=== PATIENT | female | born 1930 | race Caucasian/White ===

== ENCOUNTER 2016-10-05 08:48 | Inpatient (IN) | payer OTHER ==
[~2016-10-05] VITALS: Ht 167.6 cm; Wt 93.1 kg
[~2016-10-05 08:48] MED LIST: CHOL2000 PO; IPRA1AER2 INH; LIDO1CRE16 TOP; MAGNSUS73 PO; MULT-506 PO; ONDA4TAB46 PO; RISP0.258 PO; RISP0.5T10 PO; SENN-91 PO; SERT50TA PO; TRAM-10 PO; [UNRECOGNIZED DRUG - CODE] PO; [UNRECOGNIZED DRUG - CODE] PO; voltaren gel TD
[2016-10-05 09:01] VITALS: Ht 167.6 cm; Wt 93.1 kg
[2016-10-05] MEDS ORDERED: VANCOMYCIN INJ 1,000 MG in SODIUM CHLORIDE 0.9% 250ML 250 ML IV STA (09:12)
[2016-10-05] MEDS ORDERED: LEVAQUIN 750MG / 150ML D5W IV ONE (09:15)
--- NOTE | 2016-10-05 09:20 | EMERGENCY ROOM VISIT NOTE ---
ED Visit Note First contact with patient: 08:55 Resident Physician Supervision Note: I was present with Dr. Garcia during the history and exam. I discussed the case with the resident and agree with the findings and plan as documented in the note. Documented By: Ruben Doe Problem List Medical Problems: (1) Asthma Status: Chronic (2) Atrial Fibrillation Status: Resolved (3) Bronchitis Status: Chronic (4) Dementia Status: Chronic (5) Diverticulosis Colon (W/O Ment Of Hemorrhage) Status: Chronic (6) Hypertension Nos Status: Chronic (7) Knee Joint Replacement Status Status: Resolved (8) Ulcers Status: Chronic Surgical Problems: (1) History of hemicolectomy Status: Resolved (2) History of tonsillectomy Status: Resolved Current/Historical Medications Scheduled Acetaminophen (Tylenol), 500 MG PO Cholecalciferol (Vitamin D3), 1 CAP PO DAILY Cholecalciferol (Vitamin D3), 1 CAP PO DAILY Donepezil Hydrochloride (Donepezil Hcl), 10 MG PO HS Gabapentin (Neurontin), 300 MG PO TID Ipratropium-Albuterol (Combivent Respimat), 1 PUFFS INH QD Lidocaine-Prilocaine (Lidocaine/Prilocaine), 1 APPLN TOP UD Morphine Sulfate (Morphine Sulfate Cr), 15 MG PO Q12 Multivitamin (Multivitamin), 1 TAB PO DAILY Pantoprazole (Protonix), 40 MG PO QPM Risperidone (Risperdal), 0.25 MG PO BID Risperidone (Risperdal), 0.5 MG PO HS Sertraline (Zoloft), 75 MG PO DAILY Spironolactone (Aldactone), 25 MG PO 2XWK Trazodone Hcl (Trazodone), 50 MG PO HS Scheduled PRN Magnesium Hydroxide (Milk of Magnesia 400 mg/5Ml), 30 ML PO DIRECTED PRN for Constipation Ondansetron Hcl (Zofran), 4 MG PO Q6 PRN for Nausea Sennosides-Docusate Sodium (Senna S), 1 TAB PO BID PRN for Constipation Tramadol (Ultram), 50 MG PO Q24H PRN for Pain [voltaren gel], 1 APPLN TD QID PRN for Pain Allergies Coded Allergies: Penicillins (Verified Allergy, Mild, 07/28/16) Sulfa Drugs (Verified Allergy, Unknown, 07/28/16) Uncoded Allergies: human albumin (Adverse Reaction, Unknown, unknown, 01/04/16) Vital Signs Date Time Temp Pulse Resp B/P Pulse Ox O2 Delivery O2 Flow Rate FiO2 10/05/16 09:09 92 Nasal Cannula 4.0 10/05/16 09:01 37.9 85 18 133/57 86 Room Air Laboratory Results Test 10/05/16 09:05 10/05/16 09:12 Creatine Kinase MB Ratio (0-3.0) Departure Information Referrals Jagjit Falcon M.D. (PCP) Patient Instructions My [facility]
[2016-10-05] MEDS ORDERED: ONDANSETRON INJ 2 MG/ML 2 ML VIAL IV STA (09:22)
[2016-10-05] MEDS ORDERED: ALBUT/IPRATROP 3MG/0.5MG NEB 3 ML VIAL INH STA (09:25)
--- NOTE | 2016-10-05 09:25 | EMERGENCY ROOM VISIT NOTE ---
History First contact with patient: 08:55 Chief Complaint: FEVER Stated Complaint: RESPIRATORY DISTRESS History of Present Illness The patient is a 86 year old female who presents to the Emergency Room with complaints of respiratory distress. She has a history of vascular dementia, Parkinson's disease, GERD and currently lives in [facility] ( Dementia Unit). History was taken from both the daughter and her nurse at [facility] was called (Mirian Jacobs [phone]). Mirian reports she went to go check on Megan this morning and found her laying flat her head not upright with yellow vomit on her clothes. She was also not talking as much as she normally does. She also had a temperature of 101.5. She reports the patient has been fine the last few days and has not had fevers, chills, chest pain, shortness of breath. The daughter reports she last saw her mother yesterday and agrees that she was fine and at baseline. She usually ambulates with a walker but lately she has been in a wheelchair. Mirian reports she does not have an advanced directive for the patient, and she does not have a POLST form. Daughter reports the overall goals for her mother would be comfort care and she would discuss this with her brother, as both of them are the decision makers. Past Medical/Surgical History Medical Problems: (1) Asthma (2) Atrial Fibrillation (3) Bronchitis (4) Cellulitis (5) Dementia (6) Diverticulosis Colon (W/O Ment Of Hemorrhage) (7) Hypertension Nos (8) Knee Joint Replacement Status (9) Ulcers Surgical Problems: (1) History of hemicolectomy (2) History of tonsillectomy Family History Dementia MOTHER Heart disease FATHER Social History Smoking Status: Unknown if Ever Smoked Alcohol Use: none Drug Use: none Marital Status: Housing Status: retirement ([facility]. Permanent resident.) Occupation Status: retired Current/Historical Medications Scheduled Acetaminophen (Tylenol), 500 MG PO Cholecalciferol (Vitamin D3), 1 CAP PO DAILY Donepezil Hydrochloride (Donepezil Hcl), 10 MG PO HS Gabapentin (Neurontin), 300 MG PO TID Ipratropium-Albuterol (Combivent Respimat), 1 PUFFS INH QD Morphine Sulfate (Morphine Sulfate Cr), 15 MG PO Q12 Multivitamin (Multivitamin), 1 TAB PO DAILY Pantoprazole (Protonix), 40 MG PO QPM Polyethylene Glycol 3350 (Bulk (Polyethylene Glycol 3350), 17 GM PO DAILY Risperidone (Risperdal), 0.25 MG PO BID Risperidone (Risperdal), 0.5 MG PO HS Sertraline (Zoloft), 75 MG PO DAILY Spironolactone (Aldactone), 25 MG PO 2XWK Trazodone Hcl (Trazodone), 50 MG PO HS Scheduled PRN Magnesium Hydroxide (Milk of Magnesia 400 mg/5Ml), 30 ML PO DIRECTED PRN for Constipation Ondansetron Hcl (Zofran), 4 MG PO Q6 PRN for Nausea Sennosides-Docusate Sodium (Senna S), 1 TAB PO BID PRN for Constipation Tramadol (Ultram), 50 MG PO Q24H PRN for Pain Allergies Coded Allergies: Penicillins (Verified Allergy, Mild, 07/28/16) [place]ner Oil (Unverified Allergy, Unknown, UNKNOWN, 10/05/16) NUTS (Unverified Allergy, Unknown, UNKNOWN, 10/05/16) Sertraline (Unverified Allergy, Unknown, UNKNOWN, 10/05/16) Sulfa Drugs (Verified Allergy, Unknown, 07/28/16) Uncoded Allergies: human albumin (Adverse Reaction, Unknown, unknown, 01/04/16) Physical Exam Vital Signs Date Time Temp Pulse Resp B/P Pulse Ox O2 Delivery O2 Flow Rate FiO2 10/05/16 10:39 71 18 118/56 98 Nasal Cannula 4.0 10/05/16 10:39 70 18 98 Nasal Cannula 4.0 10/05/16 09:34 82 10/05/16 09:09 92 Nasal Cannula 4.0 10/05/16 09:05 94 Nasal Cannula 4.0 10/05/16 09:01 37.9 85 18 133/57 86 Room Air Physical Exam GENERAL: Somnolent, mild acute distress. HENT: Normocephalic, atraumatic. Oropharynx unremarkable. Coughing frequently. EYES: Normal conjunctiva. Sclera non-icteric. NECK: Supple. No nuchal rigidity. FROM. No JVD. RESPIRATORY: Transmitted upper airway sounds. No crackles at bases. CARDIAC: Regular rate, normal rhythm. Extremities warm and well perfused. Pulses equal. ABDOMEN: Bright yellow emesis on gown. Soft, non-distended. No tenderness to palpation. No rebound or guarding. No masses. RECTAL: Deferred. MUSCULOSKELETAL: Chest examination reveals no tenderness. The back is symmetrical on inspection without obvious abnormality. There is no CVA tenderness to palpation. No joint edema. LOWER EXTREMITIES: Calves are equal size bilaterally and non-tender. No edema. No discoloration. NEURO: Normal sensorium. No sensory or motor deficits noted. SKIN: No rash or jaundice noted. Medical Decision & Procedures Laboratory Results 10/05/16 09:10 Red Blood Count 3.78, Mean Corpuscular Volume 90.5, Mean Corpuscular Hemoglobin 29.9, Mean Corpuscular Hemoglobin Concent 33.0, Mean Platelet Volume 10.0, Neutrophils (%) (Auto) 85.0, Lymphocytes (%) (Auto) 8.7, Monocytes (%) (Auto) 6.0, Eosinophils (%) (Auto) 0.0, Basophils (%) (Auto) 0.1, Neutrophils # (Auto) 8.75, Lymphocytes # (Auto) 0.90, Monocytes # (Auto) 0.62, Eosinophils # (Auto) 0.00, Basophils # (Auto) 0.01 10/05/16 09:10 Test 10/05/16 00:00 10/05/16 09:10 10/05/16 09:14 10/05/16 09:24 White Blood Count 10.30 K/uL (4.8-10.8) Red Blood Count 3.78 M/uL (4.2-5.4) Hemoglobin 11.3 g/dL (12.0-16.0) Hematocrit 34.2 % (37-47) Mean Corpuscular Volume 90.5 fL (80-100) Mean Corpuscular Hemoglobin 29.9 pg (25-34) Mean Corpuscular Hemoglobin Concent 33.0 g/dl (32-36) Platelet Count 196 K/uL (130-400) Mean Platelet Volume 10.0 fL (7.4-10.4) Neutrophils (%) (Auto) 85.0 % Lymphocytes (%) (Auto) 8.7 % Monocytes (%) (Auto) 6.0 % Eosinophils (%) (Auto) 0.0 % Basophils (%) (Auto) 0.1 % Neutrophils # (Auto) 8.75 K/uL (1.4-6.5) Lymphocytes # (Auto) 0.90 K/uL (1.2-3.4) Monocytes # (Auto) 0.62 K/uL (0.11-0.59) Eosinophils # (Auto) 0.00 K/uL (0-0.5) Basophils # (Auto) 0.01 K/uL (0-0.2) RDW Standard Deviation 46.0 fL (36.4-46.3) RDW Coefficient of Variation 13.8 % (11.5-14.5) Immature Granulocyte % (Auto) 0.2 % Immature Granulocyte # (Auto) 0.02 K/uL (0.00-0.02) Prothrombin Time 12.1 SECONDS (9.0-12.0) Prothromb Time International Ratio 1.1 (0.9-1.1) Anion Gap 11.0 mmol/L (3-11) Est Creatinine Clear Calc Drug Dose 40.1 ml/min Estimated GFR () 48.1 Estimated GFR (Non- 41.5 BUN/Creatinine Ratio 16.6 (10-20) Calcium Level 9.0 mg/dl (8.5-10.1) Total Bilirubin 0.4 mg/dl (0.2-1) Aspartate Amino Transf (AST/SGOT) 28 U/L (15-37) Alanine Aminotransferase (ALT/SGPT) 20 U/L (12-78) Alkaline Phosphatase 83 U/L (45-117) Total Creatine Kinase 317 U/L (26-192) Creatine Kinase MB 2.4 ng/ml (0.5-3.6) Creatine Kinase MB Ratio 0.8 (0-3.0) Troponin I 0.026 ng/ml (0-0.045) Total Protein 6.8 gm/dl (6.4-8.2) Albumin 3.4 gm/dl (3.4-5.0) Globulin 3.4 gm/dl (2.5-4.0) Albumin/Globulin Ratio 1.0 (0.9-2) Bedside Lactic Acid Venous 1.47 mmol/L (0.90-1.70) Bedside Troponin I 0.000 ng/ml (0-0.045) Medications Administered Medications (Trade) Dose Ordered Sig/[place] Route Start Time Stop Time Status Last Admin Dose Admin Vancomycin HCl/ Sodium Chloride (Vancomycin Inj/ Nss 250ml) 270 ml @ 125 mls/hr NOW STAT IV 10/05/16 09:12 10/05/16 11:21 10/05/16 10:37 125 MLS/HR Levofloxacin (Levaquin / D5W) 750 mg NOW ONCE IV 10/05/16 09:15 10/05/16 09:16 DC 10/05/16 10:37 750 MG Ondansetron HCl 4 mg 4 mg NOW STAT IV 10/05/16 09:22 10/05/16 09:23 DC 10/05/16 10:37 4 MG Acetaminophen/ Empty Bag (Ofirmev IV/ Empty Iv Bag 100ml) 65 ml @ 260 mls/hr NOW ONCE IV 10/05/16 09:30 10/05/16 09:44 DC 10/05/16 10:36 260 MLS/HR Albuterol/ Ipratropium 12 ml 12 ml ONE STAT INH 10/05/16 09:25 10/05/16 09:27 DC 10/05/16 09:25 12 ML Sodium Chloride (Nss 500ml) 500 ml @ 999 mls/hr Q31M STAT IV 10/05/16 09:26 10/05/16 09:56 DC 10/05/16 10:36 999 MLS/HR ECG Indication: altered mental status Rhythm: normal sinus Findings: no acute ischemic change, no ectopy Change: no significant change ED Course 9:00: I evaluated the patient in room B7. A complete history and physical exam was performed. 9:05: I discussed the patient with Dr. Doe. We ordered a sepsis workup, including CBC, CMP, cardiac enzymes, CXR, CT head, Urinalysis / culture, Blood cultures, and POC lactic acid. 9:15: I checked on the patient again. She had just vomited bright yellow emesis again. I ordered her 4mg Zofran IV and a 500mL Fluid bolus. I also ordered a C. Diff PCR test. 9:30: Dr. Doe checked on the patient as well. 9:49: I checked on the patient again. She was getting her CT scan done. Her daughter was still present and her son is on his way. 10:15: I discussed the patient with her son Ed, his , and the patient's daughter. I gave them the results of her chest x-ray and lab work and that she likely had an aspiration pneumonia. The patient at this time is resting comfortably and her gurgling sensation had improved. 10:20: I discussed the patient's CODE STATUS with the people present. They were unsure where her advanced directive was. We had a long conversation about end-of-life care if that were to occur. We then filled out a POLST stating that the patient would be a DO NOT RESUSCITATE/DO NOT INTUBATE. Please refer to the form which found the patient's chart if further questions arise. Copies were provided to the 3 family members as well. Medical Decision This is an 86-year-old female with history of vascular dementia, Parkinson's, GERD, atrial fibrillation who presents today with altered mental status, fever, likely aspiration pneumonia. Differential also includes hospital-acquired pneumonia, clostridium difficile infection, urinary infection, stroke, SD. She had a complete septic workup on arrival including CBC, CMP, lactate, blood cultures, chest x-ray, CT head for altered mental status. Her labwork was unremarkable. Her lactate was 1.15. Her chest x-ray was significant for hazy opacifications likely suggestive of aspiration or inflammation. Her CT head was negative for acute ischemic change her mental status did not improve during her time here. She was provided with vancom mycin and Levaquin IV after blood cultures were obtained. She was provided with IV fluid resuscitation of 500 mL' s per hour. She does not have a recent echocardiogram in the chart. and she will be admitted to the hospitalist service for evaluation and treatment of her altered mental status and aspiration pneumonia. This is discussed with Dr. Harris of the [facility] service who will evaluate the patient. The family was also informed of this and agreed. Impression Primary Impression: Altered mental status Additional Impression: Aspiration pneumonia Departure Information Dispostion Being Evaluated By Hospitalist Condition GOOD Patient Instructions My [facility] Resident Tracking Resident Involvement: Resident Care Provided Care Provided: Adult ED Problem Qualifiers
[2016-10-05 09:26] LABS: HEMATOCRIT 34.2 % (37-47); MEAN CELL VOLUME 90.5 fL (80-100); MEAN CORPUSCULAR HEMOGLOBIN 29.9 pg (25-34); PLATELET COUNT 196 K/uL (130-400); RED BLOOD COUNT 3.78 M/uL (4.2-5.4)
[2016-10-05] MEDS ORDERED: SODIUM CHLORIDE 0.9% 500ML 500 ML IV STA (09:26)
[2016-10-05] MEDS ORDERED: ACETAMINOPHEN IV 650 MG in EMPTY BAG 0 ML IV ONE (09:30)
[2016-10-05 09:38] LABS: INR 1.1 (0.9-1.1); PROTHROMBIN TIME (PATIENT) 12.1 SECONDS (9.0-12.0)
[2016-10-05 09:44] LABS: BUN/CREATININE RATIO 16.6 (10-20); CREATININE 1.2 mg/dl (0.60-1.20); POTASSIUM 3.7 mmol/L (3.5-5.1)
[2016-10-05 09:49] LABS: CKMB/CK RATIO 0.8 (0-3.0)
--- NOTE | 2016-10-05 09:53 | DIAGNOSTIC IMAGING REPORT ---
SINGLE VIEW CHEST CLINICAL HISTORY: Dyspnea. FINDINGS: An AP, portable, upright chest radiograph is compared to study dated 07/28/2016 and correlated with chest CT dated 01/11/2014. The examination is severe degraded by portable technique, motion artifact, and patient rotation. The heart is top normal for projection. There is atherosclerotic calcification of the thoracic aorta. There are patchy airspace opacities in the left midlung. The right lung is grossly clear. No large pleural effusion or pneumothorax is seen. The skeletal structures are osteopenic. The bony thorax is grossly intact. IMPRESSION: 1. Motion degraded examination. 2. Patchy airspace opacities are identified in the left midlung. This could represent atelectasis versus an infectious/inflammatory pneumonitis. Clinical correlation will be required. Radiographic follow-up to resolution is recommended. Electronically signed by: Uche Figueroa M.D. 10/05/2016 9:52 AM Dictated Date/Time: 10/05/2016 9:50 AM
[2016-10-05 09:57] LABS: BASO % 0.1 %; BASO ABS # 0.01 K/uL (0-0.2); COMPLETE YES; IG% 0.2 %; LYMPH % 8.7 %
--- NOTE | 2016-10-05 10:03 | DIAGNOSTIC IMAGING REPORT ---
CT SCAN OF THE BRAIN WITHOUT IV CONTRAST CLINICAL HISTORY: Change in mental status. COMPARISON STUDY: CT of the brain dated 07/28/2016. TECHNIQUE: Unenhanced axial CT scan of the brain is performed from the vertex to the skull base. CT DOSE: 614.27 mGy.cm FINDINGS: Brain parenchyma: There are age-related involutional changes noting moderate patchy subcortical and periventricular microangiopathic change. There is no hemorrhage, mass effect, or evidence of acute territorial ischemia by CT criteria. Griggs-white matter is preserved. No extra-axial fluid collection is seen. Ventricles, sulci, cisterns: Prominent secondary to involutional change. Intracranial vasculature: There is atherosclerotic calcification of the cavernous carotid and vertebral arteries. Calvarium: Unremarkable. Sinuses and mastoids: The visualized paranasal sinuses are clear. The mastoid air cells are well pneumatized. Orbits: The bony orbits are grossly intact. There is a right ocular lens implant. IMPRESSION: Senescent changes as above with no hemorrhage, mass effect, or evidence of acute territorial ischemia by CT criteria. Electronically signed by: Uche Figueroa M.D. 10/05/2016 10:02 AM Dictated Date/Time: 10/05/2016 10:00 AM
[2016-10-05 10:39] VITALS: PULSE 70; O2SAT 98
[2016-10-05] MEDS ORDERED: ONDANSETRON INJ 2 MG/ML 2 ML VIAL IV PRN (11:30)
--- NOTE | 2016-10-05 11:40 | History and Physical ---
History & Physical Date & Time of Service: Oct 05, 2016 at 11:36 Chief Complaint: Respiratory Distress Primary Care Physician: Malena Hartman C.R.NZitaPZita History of Present Illness Source: patient, family This is an 86 yo F with PMHx of Dementia, Afib, HTN, asthma, diverticulosis Past Medical/Surgical History Medical Problems: (1) Asthma Status: Chronic (2) Atrial Fibrillation Status: Resolved (3) Bronchitis Status: Chronic (4) Dementia Status: Chronic (5) Diverticulosis Colon (W/O Ment Of Hemorrhage) Status: Chronic (6) Hypertension Nos Status: Chronic (7) Knee Joint Replacement Status Status: Resolved (8) Ulcers Status: Chronic Surgical Problems: (1) History of hemicolectomy Status: Resolved (2) History of tonsillectomy Status: Resolved Family History Dementia MOTHER Heart disease FATHER Social History Smoking Status: Unknown if Ever Smoked Drug Use: none Marital Status: Housing status: lives with family Occupational Status: retired Immunizations History of Influenza Vaccine: Unknown Influenza Vaccine Date: Aug 22, 2009 History of Tetanus Vaccine?: Unknown Tetanus Immunization Date: Jan 07, 2005 History of Pneumococcal: Unknown Pneumococcal Date: Feb 20, 2008 History of Hepatitis B Vaccine: Unknown Multi-Drug Resistant Organisms History of MDRO: No Allergies Coded Allergies: Penicillins (Verified Allergy, Mild, 07/28/16) [place]ell Oil (Unverified Allergy, Unknown, UNKNOWN, 10/05/16) NUTS (Unverified Allergy, Unknown, UNKNOWN, 10/05/16) Sertraline (Unverified Allergy, Unknown, UNKNOWN, 10/05/16) Sulfa Drugs (Verified Allergy, Unknown, 07/28/16) Uncoded Allergies: human albumin (Adverse Reaction, Unknown, unknown, 01/04/16) Home Medications Scheduled Acetaminophen (Tylenol), 500 MG PO Cholecalciferol (Vitamin D3), 1 CAP PO DAILY Donepezil Hydrochloride (Donepezil Hcl), 10 MG PO HS Gabapentin (Neurontin), 300 MG PO TID Ipratropium-Albuterol (Combivent Respimat), 1 PUFFS INH QD Morphine Sulfate (Morphine Sulfate Cr), 15 MG PO Q12 Multivitamin (Multivitamin), 1 TAB PO DAILY Pantoprazole (Protonix), 40 MG PO QPM Polyethylene Glycol 3350 (Bulk (Polyethylene Glycol 3350), 17 GM PO DAILY Risperidone (Risperdal), 0.25 MG PO BID Risperidone (Risperdal), 0.5 MG PO HS Sertraline (Zoloft), 75 MG PO DAILY Spironolactone (Aldactone), 25 MG PO 2XWK Trazodone Hcl (Trazodone), 50 MG PO HS Scheduled PRN Magnesium Hydroxide (Milk of Magnesia 400 mg/5Ml), 30 ML PO DIRECTED PRN for Constipation Ondansetron Hcl (Zofran), 4 MG PO Q6 PRN for Nausea Sennosides-Docusate Sodium (Senna S), 1 TAB PO BID PRN for Constipation Tramadol (Ultram), 50 MG PO Q24H PRN for Pain Physical Exam Vital Signs Date Time Temp Pulse Resp B/P Pulse Ox O2 Delivery O2 Flow Rate FiO2 10/05/16 10:39 71 18 118/56 98 Nasal Cannula 4.0 10/05/16 10:39 70 18 98 Nasal Cannula 4.0 10/05/16 09:34 82 10/05/16 09:09 92 Nasal Cannula 4.0 10/05/16 09:05 94 Nasal Cannula 4.0 10/05/16 09:01 37.9 85 18 133/57 86 Room Air Diagnostics Laboratory Results Results Past 24 Hours Test 10/05/16 00:00 10/05/16 09:10 10/05/16 09:14 10/05/16 09:24 Range/Units Influenza Type A Antigen Neg for Influ A NEG Influenza Type B Antigen Neg for Influ B NEG White Blood Count 10.30 4.8-10.8 K/uL Red Blood Count 3.78 4.2-5.4 M/uL Hemoglobin 11.3 12.0-16.0 g/dL Hematocrit 34.2 37-47 % Mean Corpuscular Volume 90.5 80-100 fL Mean Corpuscular Hemoglobin 29.9 25-34 pg Mean Corpuscular Hemoglobin Concent 33.0 32-36 g/dl Platelet Count 196 130-400 K/uL Mean Platelet Volume 10.0 7.4-10.4 fL Neutrophils (%) (Auto) 85.0 % Lymphocytes (%) (Auto) 8.7 % Monocytes (%) (Auto) 6.0 % Eosinophils (%) (Auto) 0.0 % Basophils (%) (Auto) 0.1 % Neutrophils # (Auto) 8.75 1.4-6.5 K/uL Lymphocytes # (Auto) 0.90 1.2-3.4 K/uL Monocytes # (Auto) 0.62 0.11-0.59 K/uL Eosinophils # (Auto) 0.00 0-0.5 K/uL Basophils # (Auto) 0.01 0-0.2 K/uL RDW Standard Deviation 46.0 36.4-46.3 fL RDW Coefficient of Variation 13.8 11.5-14.5 % Immature Granulocyte % (Auto) 0.2 % Immature Granulocyte # (Auto) 0.02 0.00-0.02 K/uL Prothrombin Time 12.1 9.0-12.0 SECONDS Prothromb Time International Ratio 1.1 0.9-1.1 Sodium Level 140 136-145 mmol/L Potassium Level 3.7 3.5-5.1 mmol/L Chloride Level 104 98-107 mmol/L Carbon Dioxide Level 25 21-32 mmol/L Anion Gap 11.0 3-11 mmol/L Blood Urea Nitrogen 20 7-18 mg/dl Creatinine 1.20 0.60-1.20 mg/dl Est Creatinine Clear Calc Drug Dose 40.1 ml/min Estimated GFR () 48.1 Estimated GFR (Non- 41.5 BUN/Creatinine Ratio 16.6 10-20 Random Glucose 152 70-99 mg/dl Calcium Level 9.0 8.5-10.1 mg/dl Total Bilirubin 0.4 0.2-1 mg/dl Aspartate Amino Transf (AST/SGOT) 28 15-37 U/L Alanine Aminotransferase (ALT/SGPT) 20 12-78 U/L Alkaline Phosphatase 83 45-117 U/L Total Creatine Kinase 317 26-192 U/L Creatine Kinase MB 2.4 0.5-3.6 ng/ml Creatine Kinase MB Ratio 0.8 0-3.0 Troponin I 0.026 0-0.045 ng/ml Total Protein 6.8 6.4-8.2 gm/dl Albumin 3.4 3.4-5.0 gm/dl Globulin 3.4 2.5-4.0 gm/dl Albumin/Globulin Ratio 1.0 0.9-2 Bedside Lactic Acid Venous 1.47 0.90-1.70 mmol/L Bedside Troponin I 0.000 0-0.045 ng/ml Microbiology Results 10/05/16 Blood Culture, Received Pending 10/05/16 Blood Culture, Received Pending 10/05/16 MRSA DNA Surveillance Screen, Received Pending Impression VTE Prophylaxis VTE Risk Assessment Done? Y/N: Yes Risk Level: Low
[2016-10-05] MEDS ORDERED: PIPERACILL/TAZOBAC IV 4.5 GM in DEXTROSE 5% 100ML 100 ML IV SCH (11:45)
--- NOTE | 2016-10-05 12:16 | History and Physical ---
History & Physical Date & Time of Service: Oct 05, 2016 at 11:48 Chief Complaint: Respiratory Distress Primary Care Physician: Malena Hartman, HeshamPZita History of Present Illness Source: family, hospital records Ms. Bernard is an 86yo female with PMHx of long-standing dementia for at least 10 years, atrial fibrillation, HTN, asthma, diverticulosis requiring hemicolectomy, and PE who presented via EMS from [facility] at [facility] with altered mental status, difficulty breathing, and vomiting. The patient was apparently at her neurocognitive baseline all week (confirmed with her daughter who visited with her & Friday). She had an uneventful night per documentation from the SNF and then this AM was found lying in vomit with alteration in mentation. After transport to [facility] she apparently had another episode of vomiting. CXR today shows a left-sided pneumonia, and she was begun on IV levaquin and vancomycin. During my assessment she was obtained. Both her son and daughter were at bedside and provided all of the history. At her neurocognitive baseline she is alert and oriented x 1 only. She does not recognize her children or know their names. She walks with a walker although it is limited severely by b/l knee pain. She has been at [facility] for about 3-4 years. She has a tendency towards agitation and combativeness although these symptoms were made better by use of risperdal. Past Medical/Surgical History PMH: 1. asthma 2. h/o a. fib 3. advanced dementia 4. h/o diverticulosis and diverticulitis 5. HTN 6. ulcers PSH: 1. b/l TKRs about 20 years ago 2. hemicolectomy 2nd to #4 above 3. ?hysterectomy 4. tonsillectomy Family History Dementia MOTHER Heart disease FATHER Social History Smoking Status: Never Smoker Smokeless Tobacco Use: No Alcohol Use: none Drug Use: none Marital Status: (2 children - son/daughter) Housing status: long-term ([facility]) Occupational Status: retired (Registered Nurse ) Immunizations History of Influenza Vaccine: Unknown Influenza Vaccine Date: Aug 22, 2009 History of Tetanus Vaccine?: Unknown Tetanus Immunization Date: Jan 07, 2005 History of Pneumococcal: Unknown Pneumococcal Date: Feb 20, 2008 History of Hepatitis B Vaccine: Unknown Multi-Drug Resistant Organisms History of MDRO: No Allergies Coded Allergies: Penicillins (Verified Allergy, Mild, 07/28/16) [place] Oil (Unverified Allergy, Unknown, UNKNOWN, 10/05/16) NUTS (Unverified Allergy, Unknown, UNKNOWN, 10/05/16) Sertraline (Unverified Allergy, Unknown, UNKNOWN, 10/05/16) Sulfa Drugs (Verified Allergy, Unknown, 07/28/16) Uncoded Allergies: human albumin (Adverse Reaction, Unknown, unknown, 01/04/16) Home Medications Scheduled Acetaminophen (Tylenol), 500 MG PO Cholecalciferol (Vitamin D3), 1 CAP PO DAILY Donepezil Hydrochloride (Donepezil Hcl), 10 MG PO HS Gabapentin (Neurontin), 300 MG PO TID Ipratropium-Albuterol (Combivent Respimat), 1 PUFFS INH QD Morphine Sulfate (Morphine Sulfate Cr), 15 MG PO Q12 Multivitamin (Multivitamin), 1 TAB PO DAILY Pantoprazole (Protonix), 40 MG PO QPM Polyethylene Glycol 3350 (Bulk (Polyethylene Glycol 3350), 17 GM PO DAILY Risperidone (Risperdal), 0.25 MG PO BID Risperidone (Risperdal), 0.5 MG PO HS Sertraline (Zoloft), 75 MG PO DAILY Spironolactone (Aldactone), 25 MG PO 2XWK Trazodone Hcl (Trazodone), 50 MG PO HS Scheduled PRN Magnesium Hydroxide (Milk of Magnesia 400 mg/5Ml), 30 ML PO DIRECTED PRN for Constipation Ondansetron Hcl (Zofran), 4 MG PO Q6 PRN for Nausea Sennosides-Docusate Sodium (Senna S), 1 TAB PO BID PRN for Constipation Tramadol (Ultram), 50 MG PO Q24H PRN for Pain Review of Systems unable to obtain ROS due to obtundation Physical Exam Vital Signs Date Time Temp Pulse Resp B/P Pulse Ox O2 Delivery O2 Flow Rate FiO2 10/05/16 10:39 71 18 118/56 98 Nasal Cannula 4.0 10/05/16 10:39 70 18 98 Nasal Cannula 4.0 10/05/16 09:34 82 10/05/16 09:09 92 Nasal Cannula 4.0 10/05/16 09:05 94 Nasal Cannula 4.0 10/05/16 09:01 37.9 85 18 133/57 86 Room Air General Appearance: + mild distress (tachypnea, course breath sounds, mild retractions) Head: normocephalic, atraumatic Eyes: PERRL ENT: + pertinent finding (TMs not seen due to b/l cerumen impaction; MM dry; poor gag) Neck: supple, no adenopathy, thyroid normal, no JVD Respiratory/Chest: + respiratory distress, + accessory muscle use, + wheezing ( mainly course BS bilaterally) Cardiovascular: no gallop, no murmur, normal peripheral pulses, + tachycardia Abdomen/GI: normal bowel sounds, non tender, soft, no organomegaly, + pertinent finding (multiple scars on abdominal wall ) Extremities/Musculoskelatal: no pedal edema, + pertinent finding (scars present over both knees; with passive ROM of both knees she quickly grimaces) Neurologic/Psych: + pertinent finding (DTRs (arms) about 1+ b/l; cannot assess strength; obtunded) Skin: no rash Lymphatic: no adenopathy (cervical ) Diagnostics Laboratory Results Results Past 24 Hours Test 10/05/16 00:00 10/05/16 09:10 10/05/16 09:14 10/05/16 09:24 Range/Units Influenza Type A Antigen Neg for Influ A NEG Influenza Type B Antigen Neg for Influ B NEG White Blood Count 10.30 4.8-10.8 K/uL Red Blood Count 3.78 4.2-5.4 M/uL Hemoglobin 11.3 12.0-16.0 g/dL Hematocrit 34.2 37-47 % Mean Corpuscular Volume 90.5 80-100 fL Mean Corpuscular Hemoglobin 29.9 25-34 pg Mean Corpuscular Hemoglobin Concent 33.0 32-36 g/dl Platelet Count 196 130-400 K/uL Mean Platelet Volume 10.0 7.4-10.4 fL Neutrophils (%) (Auto) 85.0 % Lymphocytes (%) (Auto) 8.7 % Monocytes (%) (Auto) 6.0 % Eosinophils (%) (Auto) 0.0 % Basophils (%) (Auto) 0.1 % Neutrophils # (Auto) 8.75 1.4-6.5 K/uL Lymphocytes # (Auto) 0.90 1.2-3.4 K/uL Monocytes # (Auto) 0.62 0.11-0.59 K/uL Eosinophils # (Auto) 0.00 0-0.5 K/uL Basophils # (Auto) 0.01 0-0.2 K/uL RDW Standard Deviation 46.0 36.4-46.3 fL RDW Coefficient of Variation 13.8 11.5-14.5 % Immature Granulocyte % (Auto) 0.2 % Immature Granulocyte # (Auto) 0.02 0.00-0.02 K/uL Prothrombin Time 12.1 9.0-12.0 SECONDS Prothromb Time International Ratio 1.1 0.9-1.1 Sodium Level 140 136-145 mmol/L Potassium Level 3.7 3.5-5.1 mmol/L Chloride Level 104 98-107 mmol/L Carbon Dioxide Level 25 21-32 mmol/L Anion Gap 11.0 3-11 mmol/L Blood Urea Nitrogen 20 7-18 mg/dl Creatinine 1.20 0.60-1.20 mg/dl Est Creatinine Clear Calc Drug Dose 40.1 ml/min Estimated GFR () 48.1 Estimated GFR (Non- 41.5 BUN/Creatinine Ratio 16.6 10-20 Random Glucose 152 70-99 mg/dl Calcium Level 9.0 8.5-10.1 mg/dl Total Bilirubin 0.4 0.2-1 mg/dl Aspartate Amino Transf (AST/SGOT) 28 15-37 U/L Alanine Aminotransferase (ALT/SGPT) 20 12-78 U/L Alkaline Phosphatase 83 45-117 U/L Total Creatine Kinase 317 26-192 U/L Creatine Kinase MB 2.4 0.5-3.6 ng/ml Creatine Kinase MB Ratio 0.8 0-3.0 Troponin I 0.026 0-0.045 ng/ml Total Protein 6.8 6.4-8.2 gm/dl Albumin 3.4 3.4-5.0 gm/dl Globulin 3.4 2.5-4.0 gm/dl Albumin/Globulin Ratio 1.0 0.9-2 Bedside Lactic Acid Venous 1.47 0.90-1.70 mmol/L Bedside Troponin I 0.000 0-0.045 ng/ml Test 10/05/16 11:44 Range/Units Microbiology Results 10/05/16 Blood Culture, Received Pending 3/4/17 Blood Culture, Received Pending 10/05/16 MRSA DNA Surveillance Screen, Received Pending Diagnostic Radiology cxr: IMPRESSION: 1. Motion degraded examination. 2. Patchy airspace opacities are identified in the left midlung. This could represent atelectasis versus an infectious/inflammatory pneumonitis. Clinical correlation will be required. Radiographic follow-up to resolution is recommended. CT head: neg for ICH or stroke; atrophy EKG EKG: NSR, no ST changes Impression Assessment and Plan 86yo female with advanced dementia, HTN, asthma, previous PE, and atrial fibrillation presenting with: 1. acute hypoxic respiratory failure - 2nd to left-sided pneumonia. When she was found altered this am there was vomit on her shirt suggesting that this could have been an aspiration event leading to the pneumonia. Will Rx with aztreonam (PCN allergic), flagyl (for anaerobe coverage), and levaquin (for gram negatives). Check MRSA screen; if negative then defer on MRSA coverage. Supportive care including O2, nebs, etc. Of note - rapid flu test was negative. 2. sepsis 2nd to left-sided pneumonia - fluids, IV abx, supportive care. 3. metabolic encephalopathy - 2nd to #1/#2. Supportive care. Check a VBG to ensure no hypercarbia as the cause of her obtundation. 4. dementia with history of behavioral disturbance - she is quite encephalopathic at this time due to the infectious process. Will resume her risperdal once mentating. 5. vomiting - unsure if this is due the pneumonia itself or a separate issue. Will check abdominal x-rays to r/o ileus, SBO, etc. Keep NPO. 6. asthma - with possible early exacerbation - solumedrol 40mg q12h. nebs. O2. 7. CKD stage 3 - creatinine at baseline. 8. DVT proph - heparin. 9. FEN - gentle hydration, NPO, BMP in am. 10. h/o PE - noted; needs chemical anticoagulation. 11. HTN - BPs are low-normal due to sepsis/dehydration. Hold BP meds. 12. code status - apparently the ER physician had a POLST discussion with the family. POLST form was completed. She is a DNR. During my personal discussions with the son/daughter they had some hesitation about having signed the POLST form but they are all in agreement that DNR is appropriate for their mother. 13. minimally elevated CPK - repeat CPK with troponin later this afternoon. Level of Care Med/Surg Advanced Directives Existing Advance Directive: No Existing Living Will: No Resuscitation Status DO NOT RESUSCITATE VTE Prophylaxis VTE Risk Assessment Done? Y/N: Yes Risk Level: Moderate Given or contraindicated: Unfractionated heparin SQ Social Service Consult Lives in [facility] Note total visit time 75 minutes Additional Copies To Raji Anthony
[2016-10-05 12:41] LABS: VEN BLD GAS O2 SATURATION 71.6 %; VEN BLOOD GAS BASE EXCESS -1.1 mmol/L
[2016-10-05] MEDS: GABAPENTIN 300 MG CAP PO SCH ×2 (13:44→19:48)
[2016-10-05] MEDS: RISPERIDONE 0.5 MG TAB PO SCH (14:00)
[2016-10-05] MEDS: METHYLPREDNISOLONE IV 40 MG in SYRINGE 0 ML IV SCH (14:13)
[2016-10-05] MEDS: NSS + 20MEQ KCL 1000ML 1,000 ML IV SCH (14:14)
[2016-10-05] MEDS: AZTREONAM IV 1,000 MG in DEXTROSE 5% 100ML 100 ML IV SCH ×2 (14:22→21:40)
[2016-10-05 14:26] VITALS: BP 119/72; PULSE 79; TEMP 37.7; O2SAT 96
[2016-10-05] MEDS: METRONIDAZOLE / NSS 500 MG in PREMIXED NSS 100 ML IV SCH (15:45)
[2016-10-05 15:56] VITALS: BP 100/62; PULSE 78; TEMP 38.4
[2016-10-05 17:02] LABS: CKMB/CK RATIO 0.7 (0-3.0)
[2016-10-05 17:30] VITALS: TEMP 37.8
--- NOTE | 2016-10-05 18:03 | DIAGNOSTIC IMAGING REPORT ---
ABDOMEN 2 VIEWS CLINICAL HISTORY: Generalized abdominal pain. Clinical concern for ileus. FINDINGS: Supine and erect portable abdominal radiographs are compared to study dated 09/28/2014. There is a paucity of abdominal bowel gas with no radiographic evidence of bowel obstruction. No evidence of intraperitoneal free air is seen. There are no abnormal abdominal calcifications. The skeletal structures are osteopenic. Moderate lumbosacral spondylosis is observed. Arthritic change is seen in the hips. The lung bases are clear as imaged. IMPRESSION: There is no radiographic evidence of bowel obstruction or intraperitoneal free air. Electronically signed by: Uche Figueroa M.D. 10/05/2016 6:02 PM Dictated Date/Time: 10/05/2016 6:00 PM
[2016-10-05] MEDS: TRAZODONE HCL 50 MG TAB PO SCH (19:48)
[2016-10-05] MEDS: DONEPEZIL HCL 10 MG TAB PO SCH (19:48)
[2016-10-05] MEDS: PANTOprazole SOD 40 MG TAB PO SCH (19:49)
[2016-10-05] MEDS: MoRPHine SULFATE CR 15 MG TAB (MS CONTIN) PO SCH (19:49)
[2016-10-05] MEDS ORDERED: RISPERIDONE 0.5 MG TAB PO SCH (21:00)
[2016-10-05] MEDS ORDERED: VANCOMYCIN INJ 500 MG in SODIUM CHLORIDE 0.9% 250ML 250 ML IV SCH (21:00)
[2016-10-05] MEDS: HEPARIN SOD 5000 UNIT/0.5 ML CARP SQ SCH (21:51)
[2016-10-06 00:05] VITALS: BP 149/75; PULSE 64; TEMP 36.5; O2SAT 95
[2016-10-06] MEDS: METRONIDAZOLE / NSS 500 MG in PREMIXED NSS 100 ML IV SCH ×3 (00:08→16:18)
[2016-10-06] MEDS: NSS + 20MEQ KCL 1000ML 1,000 ML IV SCH ×3 (00:10→20:24)
[2016-10-06] MEDS: METHYLPREDNISOLONE IV 40 MG in SYRINGE 0 ML IV SCH ×2 (00:51→12:41)
[2016-10-06] MEDS: AZTREONAM IV 1,000 MG in DEXTROSE 5% 100ML 100 ML IV SCH ×3 (06:51→23:01)
[2016-10-06] MEDS: SERTRALINE HCL 50 MG TAB PO SCH (06:56)
[2016-10-06] MEDS: MoRPHine SULFATE CR 15 MG TAB (MS CONTIN) PO SCH ×2 (06:56→20:02)
[2016-10-06] MEDS: RISPERIDONE 0.5 MG TAB PO SCH ×2 (06:56→12:42)
[2016-10-06] MEDS: GABAPENTIN 300 MG CAP PO SCH ×3 (06:56→19:59)
[2016-10-06] MEDS: MULTIVITAMIN TAB PO SCH (06:56)
[2016-10-06 07:30] VITALS: BP 154/71; PULSE 44; TEMP 36.4; O2SAT 99
[2016-10-06] MEDS: IPRATROPIUM BROMIDE/ALBUTEROL respimat INH INH SCH (07:53)
[2016-10-06] MEDS: HEPARIN SOD 5000 UNIT/0.5 ML CARP SQ SCH ×2 (07:55→21:00)
[2016-10-06 09:23] LABS: URINE APPEARANCE CLEAR (CLEAR); URINE BILIRUBIN NEG (NEG); URINE COLOR YELLOW; URINE EPITHELIAL CELL AUTO 0-5 /lpf (0-5); URINE NITRITE NEG (NEG); URINE SPECIFIC GRAVITY 1.021 (1.000-1.030); UROBILINOGEN NEG (NEG); ZZUR CULT IF INDIC CLEAN CATCH NO
[2016-10-06 09:28] LABS: MANUAL MICROSCOPIC REQUIRED? NO; REVIEW REQ? NO
[2016-10-06 09:54] LABS: HEMATOCRIT 32.3 % (37-47); MEAN CELL VOLUME 90.7 fL (80-100); MEAN CORPUSCULAR HEMOGLOBIN 30.1 pg (25-34); MEAN CORPUSCULAR HGB CONC 33.1 g/dl (32-36); MEAN PLATELET VOLUME 9.9 fL (7.4-10.4); PLATELET COUNT 173 K/uL (130-400); RED BLOOD COUNT 3.56 M/uL (4.2-5.4); WHITE BLOOD COUNT 10.46 K/uL (4.8-10.8)
[2016-10-06 10:19] LABS: BUN/CREATININE RATIO 28.7 (10-20); CALCIUM 8.6 mg/dl (8.5-10.1); CREATININE 0.96 mg/dl (0.60-1.20); MAGNESIUM 1.9 mg/dl (1.8-2.4); POTASSIUM 4.1 mmol/L (3.5-5.1)
[2016-10-06 10:32] LABS: COMPLETE YES; IG% 0.2 %; LYMPH % 7.6 %; MONO % 5.9 %; NEUT % 86.3 %
[2016-10-06] MEDS: DICLOFENAC SOD 1% GEL 100 GM TUBE EXT SCH ×2 (12:40→20:25)
[2016-10-06] MEDS: HYDROmorphone INJ 0.5 MG/0.5 ML SYR IV PRN ×2 (13:57→21:23)
[2016-10-06 15:46] LABS: INFLUENZA A PCR Neg for Influ A (NEG); INFLUENZA B PCR Neg for Influ B (NEG)
[2016-10-06] MEDS: RISPERIDONE ODT 0.5MG PO SCH ×2 (16:27→19:47)
--- NOTE | 2016-10-06 17:44 | Progress Note ---
Subjective Date of Service: Oct 06, 2016. Subjective Pt evaluation today including: conversation w/ patient, conversation w/ family (daughter at bedside), physical exam, chart review, lab review, review of studies (flu PCR test), review of inpatient medication list Pain: "all over" but she can't describe it or tell me other details PO Intake: essentially nothing Voiding: incontinence overnight was very sleepy this AM she is much more awake and alert albeit very confused per staff has episodes of combativeness not eating well seen by speech; cleared for [facility] soft with thin liquids cough noted by daughter during the entire visit the patient was making a moaning/buzzing type sound which the daughter states is chronic Problem List Medical Problems: (1) Altered mental status Status: Acute (2) Aspiration pneumonia Status: Acute (3) Fall Status: Acute Review of Systems cannot obtain 2nd to dementia Objective Vital Signs Date Time Temp Pulse Resp B/P Pulse Ox O2 Delivery O2 Flow Rate FiO2 10/06/16 14:53 Nasal Cannula 2.0 10/06/16 11:40 Nasal Cannula 2.0 10/06/16 07:30 36.4 44 24 154/71 99 Nasal Cannula 2.0 10/06/16 01:46 Nasal Cannula 2.0 10/06/16 00:05 36.5 64 20 149/75 95 Nasal Cannula 2.0 10/05/16 23:58 Nasal Cannula 2.0 Physical Exam General Appearance: no apparent distress, + pertinent finding (making a moaning /buzzing sound ) ENT: pharynx normal Neck: no JVD Respiratory/Chest: no respiratory distress, no accessory muscle use, + rales ( minimal, left lung), + wheezing (b/l ) Cardiovascular: no gallop, no murmur, + bradycardia Abdomen: normal bowel sounds, non tender, soft, no organomegaly Extremities: no pedal edema, + pertinent finding (knee replacement scars b/l ) Neurologic/Psychiatric: alert, + disoriented, + pertinent finding (increased tone all 4 extremities ) Laboratory Results Last 24 Hours Test 10/06/16 08:30 10/06/16 09:29 10/06/16 12:05 10/06/16 14:10 Urine Color YELLOW Urine Appearance CLEAR Urine pH 5.0 Urine Specific [place] 1.021 Urine Protein NEG Urine Glucose (UA) NEG Urine Ketones NEG Urine Occult Blood 3+ Urine Nitrite NEG Urine Bilirubin NEG Urine Urobilinogen NEG Urine Leukocyte Esterase NEG Urine WBC (Auto) 0 /hpf Urine RBC (Auto) 0-4 /hpf Urine Hyaline Casts (Auto) 0 /lpf Urine Epithelial Cells (Auto) 0-5 /lpf Urine Bacteria (Auto) NEG White Blood Count 10.46 K/uL Red Blood Count 3.56 M/uL Hemoglobin 10.7 g/dL Hematocrit 32.3 % Mean Corpuscular Volume 90.7 fL Mean Corpuscular Hemoglobin 30.1 pg Mean Corpuscular Hemoglobin Concent 33.1 g/dl Platelet Count 173 K/uL Mean Platelet Volume 9.9 fL Neutrophils (%) (Auto) 86.3 % Lymphocytes (%) (Auto) 7.6 % Monocytes (%) (Auto) 5.9 % Eosinophils (%) (Auto) 0.0 % Basophils (%) (Auto) 0.0 % Neutrophils # (Auto) 9.02 K/uL Lymphocytes # (Auto) 0.80 K/uL Monocytes # (Auto) 0.62 K/uL Eosinophils # (Auto) 0.00 K/uL Basophils # (Auto) 0.00 K/uL RDW Standard Deviation 47.8 fL RDW Coefficient of Variation 14.2 % Immature Granulocyte % (Auto) 0.2 % Immature Granulocyte # (Auto) 0.02 K/uL Sodium Level 143 mmol/L Potassium Level 4.1 mmol/L Chloride Level 109 mmol/L Carbon Dioxide Level 25 mmol/L Anion Gap 9.0 mmol/L Blood Urea Nitrogen 28 mg/dl Creatinine 0.96 mg/dl Est Creatinine Clear Calc Drug Dose 50.1 ml/min Estimated GFR () 62.9 Estimated GFR (Non- 54.3 BUN/Creatinine Ratio 28.7 Random Glucose 137 mg/dl Calcium Level 8.6 mg/dl Magnesium Level 1.9 mg/dl Total Creatine Kinase 242 U/L Influenza Type A (RT-PCR) Neg for Influ A Influenza Type B (RT-PCR) Neg for Influ B Test 10/06/16 17:01 Bedside Glucose 134 mg/dl Assessment and Plan 86yo female with advanced dementia, HTN, asthma, previous PE, and atrial fibrillation who presented with: 1. acute hypoxic respiratory failure - 2nd to left-sided pneumonia. Likely aspiration in etiology. Cannot rule out gram negative etiology but less likely. MRSA swab negative. Day #2 of aztreonam & levaquin - continue both. Cont NC O2 & supportive care, nebs, etc. 2. sepsis 2nd to left-sided pneumonia - improved today. Cont fluids, IV abx, supportive care. 3. metabolic encephalopathy - 2nd to #1/#2. Improved. Much more awake/alert today. 4. dementia with history of behavioral disturbance - getting combative now that she is more awake. Resume risperdal. Adjust as needed. Family has been counseled that behavior often worsens while hospitalized since she is out of her normal environment, etc. 5. vomiting - resolved. KUB x-ray w/o ileus or SBO. In fact has had bowel movement since admission. 6. asthma - with exacerbation - continue solumedrol 40mg q12h. nebs. O2. 7. CKD stage 3 - creatinine at baseline. 8. DVT proph - heparin. 9. FEN - continue gentle hydration due to poor oral intake; BMP in am. 10. h/o PE - noted; needs chemical DVT proph (heparin). 11. HTN - BPs were low yesterday, now climbing. If they continue to be mildly high restart meds. 12. h/o a. fib - now with low HR today - EKG. 13. code status - DNR. daughter updated at bedside PT, OT Continued [facility] stay due to: inadequate po fluid intake, ambulation difficulties , multiple IV medications needed Discharge planning: other ([facility])
[2016-10-06 17:52] VITALS: BP 186/85; PULSE 54; TEMP 36.2; O2SAT 82
[2016-10-06] MEDS ORDERED: MICONAZOLE NITRATE POWDER 43 GM ONE (18:44)
[2016-10-06] MEDS: PANTOprazole SOD 40 MG TAB PO SCH (19:47)
[2016-10-06] MEDS: TRAZODONE HCL 50 MG TAB PO SCH (19:47)
[2016-10-06] MEDS: DONEPEZIL HCL 10 MG TAB PO SCH (19:59)
[2016-10-06 20:30] VITALS: BP 171/76; PULSE 47; O2SAT 96
[2016-10-06 22:00] VITALS: BP 160/74; PULSE 50; O2SAT 95
[2016-10-07] VITALS (9 sets, daily range): BP systolic 128–176; BP diastolic 56–90; PULSE 38–48; TEMP 36.3–36.6; O2SAT 93–100
[2016-10-07] MEDS: METRONIDAZOLE / NSS 500 MG in PREMIXED NSS 100 ML IV SCH ×2 (00:44→07:54)
[2016-10-07] MEDS: DICLOFENAC SOD 1% GEL 100 GM TUBE EXT SCH ×4 (01:29→21:23)
[2016-10-07] MEDS: METHYLPREDNISOLONE IV 40 MG in SYRINGE 0 ML IV SCH (01:29)
[2016-10-07] MEDS: AZTREONAM IV 1,000 MG in DEXTROSE 5% 100ML 100 ML IV SCH (05:50)
[2016-10-07 07:19] LABS: BUN/CREATININE RATIO 40.8 (10-20); CREATININE 0.86 mg/dl (0.60-1.20); POTASSIUM 4.6 mmol/L (3.5-5.1)
[2016-10-07 07:29] LABS: THYROID STIMULATING HORMONE 0.79 uIu/ml (0.300-4.500)
[2016-10-07] MEDS: MULTIVITAMIN TAB PO SCH (07:41)
[2016-10-07] MEDS: GABAPENTIN 300 MG CAP PO SCH ×3 (07:41→21:22)
[2016-10-07] MEDS: RISPERIDONE ODT 0.5MG PO SCH ×3 (07:43→21:23)
[2016-10-07] MEDS: IPRATROPIUM BROMIDE/ALBUTEROL respimat INH INH SCH (07:52)
[2016-10-07] MEDS: SERTRALINE HCL 50 MG TAB PO SCH (07:54)
[2016-10-07] MEDS: TRAMADOL HCL 50 MG TAB PO PRN (07:59)
[2016-10-07] MEDS: NSS + 20MEQ KCL 1000ML 1,000 ML IV SCH (08:01)
[2016-10-07] MEDS ORDERED: NITROGLYCERIN 0.4 MG SL PER TAB CHARGE ONE (08:07)
[2016-10-07] MEDS ORDERED: NURSING VERBAL MED ORDER ONE (08:15)
[2016-10-07] MEDS: HEPARIN SOD 5000 UNIT/0.5 ML CARP SQ SCH ×2 (09:00→21:00)
[2016-10-07] MEDS: MoRPHine SULFATE CR 15 MG TAB (MS CONTIN) PO SCH ×2 (09:28→21:22)
[2016-10-07] MEDS ORDERED: LEVOFLOXACIN / D5W 750 MG in PREMIXED IN D5W 150 ML IV SCH (11:00)
--- NOTE | 2016-10-07 13:40 | Clinical Documentation Query ---
CLINICAL DOCUMENTATION QUERY Dr. SMITH, In your clinical opinion is this patient being managed for: ( X ) Venous stasis ulcers on 2nd and 3rd R toes ( ) Other explanation of clinical findings (Please Explain) ( ) Unable to determine (Please Define) ( ) Need to Discuss ( ) Not Agree The medical record reflects the following clinical findings, treatment, and risk factors. Clinical Indicators: WOCN consult noted for scabbed areas on R toes. WOCN noted pt has a history of venous statis ulcers in the past. Treatment:cleanse with NSS, paint with betadine, cover with gauze and kerlix daily and prn, waffleboots, WOCN consult Risk Factors:age, venous insufficiency, HTN, A fib Please clarify and document your clinical opinion in the progress notes and discharge summary. Terms such as "probable", "suspected", "likely", "questionable", "possible", or "still to be ruled out" are acceptable. IF IN AGREEMENT, YOU MUST DOCUMENT ABOVE DIAGNOSTIC STATEMENT IN DAILY PROGRESS NOTES AND DISCHARGE SUMMARY. This document is not part of the patient's record. Thank You, Dia Butts, RN [phone]
--- NOTE | 2016-10-07 19:37 | Hospitalist Progress Note ---
Hospitalist Progress Note Date of Service Oct 07, 2016. Subjective Pt evaluation today including: physical exam, chart review, lab review, review of studies, review of inpatient medication list The patient was non-conversant. She has a chronic humming vocalization. I was unable to perform a ROS. No family members present to talk with today. Additional Comments: Unable to be performed. Objective Vital Signs Date Time Temp Pulse Resp B/P Pulse Ox O2 Delivery O2 Flow Rate FiO2 10/07/16 19:00 Room Air 10/07/16 16:15 95 Room Air 10/07/16 16:00 96 Nasal Cannula 2.0 10/07/16 15:44 36.3 42 24 128/70 100 Nasal Cannula 2.0 10/07/16 08:25 42 130/56 10/07/16 08:00 96 Nasal Cannula 2.0 10/07/16 07:20 38 151/90 95 Nasal Cannula 2.0 10/07/16 07:08 36.6 48 18 153/62 93 Room Air 10/07/16 01:20 Nasal Cannula 2.0 10/07/16 00:20 36.3 45 16 133/66 99 3.0 10/06/16 22:30 Nasal Cannula 3.0 10/06/16 22:00 50 160/74 95 Nasal Cannula 3.0 10/06/16 20:30 47 171/76 96 Nasal Cannula 3.0 Physical Exam Notes: GEN: Awake. HEENT: Tm's intact, no inflammation, EOMI, PERRLA, MMM Neck: Soft, supple Lungs: scattered rhonchi b/l. Heart: REG, nrl S1S2 without murmurs, rubs or gallops Abdomen: Soft, NT, ND, + BS EXT: No C/C/E NEURO: CN's II-XII grossly intact, non-focal Skin: warm, dry, no rashes PSYCH: No agitation, confused. Laboratory Results Last 24 Hours Test 10/07/16 06:20 Sodium Level 144 mmol/L Potassium Level 4.6 mmol/L Chloride Level 112 mmol/L Carbon Dioxide Level 22 mmol/L Anion Gap 10.0 mmol/L Blood Urea Nitrogen 35 mg/dl Creatinine 0.86 mg/dl Est Creatinine Clear Calc Drug Dose 56.0 ml/min Estimated GFR () 71.9 Estimated GFR (Non- 62.0 BUN/Creatinine Ratio 40.8 Random Glucose 152 mg/dl Calcium Level 9.0 mg/dl Thyroid Stimulating Hormone (TSH) 0.790 uIu/ml Assessment and Plan 1. Left sided pneumonia vs chemical pneumonitis from aspiration. 2. sepsis 2nd to left-sided pneumonia - continues to improve. In fact patient has self removed her IV site for the 3rd time. I will switch antibiotic to oral and monitor the patient. 3. dementia with history of behavioral disturbance - continue risperdal. 4. asthma - with exacerbation - change to oral prednisone. nebs. O2. 7. CKD stage 3 - creatinine is at baseline. 8. DVT proph - heparin. 9. HTN - tends to fluctuate 10. bradycardia - episodic. Patient is DNR. I do not plan to get aggressive with this issue.
[2016-10-07] MEDS: PANTOprazole SOD 40 MG TAB PO SCH (21:21)
[2016-10-07] MEDS: DONEPEZIL HCL 10 MG TAB PO SCH (21:21)
[2016-10-07] MEDS: TRAZODONE HCL 50 MG TAB PO SCH (21:22)
[2016-10-08] MEDS: DICLOFENAC SOD 1% GEL 100 GM TUBE EXT SCH ×4 (02:15→20:52)
[2016-10-08] MEDS: ACETAMINOPHEN 325 MG TAB PO PRN (04:47)
[2016-10-08 05:54] LABS: COMPLETE YES; HEMATOCRIT 34.3 % (37-47); IG% 0.1 %; LYMPH ABS # 0.99 K/uL (1.2-3.4); MEAN CORPUSCULAR HGB CONC 32.7 g/dl (32-36); MEAN PLATELET VOLUME 10.5 fL (7.4-10.4); MONO % 6.6 %; NEUT % 83.3 %; PLATELET COUNT 179 K/uL (130-400); RED BLOOD COUNT 3.73 M/uL (4.2-5.4); WHITE BLOOD COUNT 9.88 K/uL (4.8-10.8)
[2016-10-08 06:28] LABS: BUN/CREATININE RATIO 33.1 (10-20); CREATININE 0.95 mg/dl (0.60-1.20)
[2016-10-08 07:00] VITALS: BP 150/77; PULSE 50; TEMP 36.3; O2SAT 95
[2016-10-08] MEDS: GABAPENTIN 300 MG CAP PO SCH ×3 (07:44→20:52)
[2016-10-08] MEDS: MULTIVITAMIN TAB PO SCH (07:45)
[2016-10-08] MEDS: SERTRALINE HCL 50 MG TAB PO SCH (07:45)
[2016-10-08] MEDS: RISPERIDONE ODT 0.5MG PO SCH ×3 (07:47→20:53)
[2016-10-08] MEDS: MoRPHine SULFATE CR 15 MG TAB (MS CONTIN) PO SCH ×2 (07:48→20:51)
[2016-10-08] MEDS: IPRATROPIUM BROMIDE/ALBUTEROL respimat INH INH SCH (07:51)
[2016-10-08] MEDS: HEPARIN SOD 5000 UNIT/0.5 ML CARP SQ SCH ×2 (09:00→20:51)
[2016-10-08] MEDS ORDERED: LVQ500 PO (09:03)
[2016-10-08] MEDS ORDERED: PRED10TA PO (09:03)
--- NOTE | 2016-10-08 09:07 | Discharge Instructions ---
Discharge Instructions Date of Service Oct 08, 2016. Admission Reason for Admission: Left pneumonia, metabolic encephalopathy Discharge Discharge Diagnosis / Problem: Pneumonitis Left Discharge Goals Goal(s): Improve function Activity Recommendations Activity Limitations: resume your previous activity . Instructions / Follow-Up Instructions / Follow-Up PCP in 5-7 days. Take prednisone as follows: Prednisone 10mg tabs take 2 by mouth daily on days 1-5. Then take 1 daily on days 6-10. Current Hospital Diet Patient's current hospital diet: AHA Diet (Heart Healthy) Discharge Diet Recommended Diet: Regular Diet Procedures Procedures Performed: None. Pending Studies Studies pending at discharge: yes List of pending studies: Final results of blood cultures x2. At the time of discharge both cultures are showing no growth. Laboratory Results Last 24 Hours Test 10/08/16 05:40 White Blood Count 9.88 K/uL Red Blood Count 3.73 M/uL Hemoglobin 11.2 g/dL Hematocrit 34.3 % Mean Corpuscular Volume 92.0 fL Mean Corpuscular Hemoglobin 30.0 pg Mean Corpuscular Hemoglobin Concent 32.7 g/dl Platelet Count 179 K/uL Mean Platelet Volume 10.5 fL Neutrophils (%) (Auto) 83.3 % Lymphocytes (%) (Auto) 10.0 % Monocytes (%) (Auto) 6.6 % Eosinophils (%) (Auto) 0.0 % Basophils (%) (Auto) 0.0 % Neutrophils # (Auto) 8.23 K/uL Lymphocytes # (Auto) 0.99 K/uL Monocytes # (Auto) 0.65 K/uL Eosinophils # (Auto) 0.00 K/uL Basophils # (Auto) 0.00 K/uL RDW Standard Deviation 46.9 fL RDW Coefficient of Variation 14.0 % Immature Granulocyte % (Auto) 0.1 % Immature Granulocyte # (Auto) 0.01 K/uL Sodium Level 142 mmol/L Potassium Level 4.0 mmol/L Chloride Level 108 mmol/L Carbon Dioxide Level 24 mmol/L Anion Gap 10.0 mmol/L Blood Urea Nitrogen 31 mg/dl Creatinine 0.95 mg/dl Est Creatinine Clear Calc Drug Dose 50.7 ml/min Estimated GFR () 63.7 Estimated GFR (Non- 55.0 BUN/Creatinine Ratio 33.1 Random Glucose 111 mg/dl Calcium Level 9.0 mg/dl Medical Emergencies . Who to Call and When: Medical Emergencies: If at any time you feel your situation is an emergency, please call 911 immediately. . Non-Emergent Contact Non-Emergency issues call your: Primary Care Provider . . "Provider Documentation" section prepared by Juan Palencia. VTE Core Measure Inpt VTE Proph given/why not?: Unfractionated heparin SQ
[2016-10-08] MEDS: LEVOFLOXACIN 500 MG TAB PO SCH (10:50)
[2016-10-08] MEDS ORDERED: LEVOFLOXACIN 750 MG TAB PO SCH (11:00)
[2016-10-08 14:45] VITALS: BP 187/72; PULSE 47; TEMP 36.7; O2SAT 93
[2016-10-08 16:10] VITALS: O2SAT 93
--- NOTE | 2016-10-08 17:11 | Hospitalist Progress Note ---
Hospitalist Progress Note Date of Service Oct 08, 2016. Subjective Pt evaluation today including: conversation w/ patient, physical exam, chart review, lab review, review of studies, review of inpatient medication list Patient is confused. She was actually laughing today. I had planned on discharge as she is doing well, but there are no rehab beds available for today. Additional Comments: Unobtainable due to dementia. Objective Vital Signs Date Time Temp Pulse Resp B/P Pulse Ox O2 Delivery O2 Flow Rate FiO2 10/08/16 14:45 36.7 47 19 187/72 93 10/08/16 08:00 Room Air 10/08/16 07:00 36.3 50 18 150/77 95 Room Air 10/08/16 00:00 Room Air 10/07/16 23:51 36.3 43 18 176/79 95 Room Air 10/07/16 19:00 Room Air Physical Exam Notes: GEN: Awake. Not in acute distress HEENT: Tm's intact, no inflammation, EOMI, PERRLA, MMM Neck: Soft, supple Lungs: CTA b/l, no r/r/w Heart: REG, nrl S1S2 without murmurs, rubs or gallops Abdomen: Soft, NT, ND, + BS EXT: No C/C + trace ankle edema. NEURO: CN's II-XII grossly intact, non-focal Skin: warm, dry, no rashes PSYCH: appears elated, but not communicating. Laboratory Results Last 24 Hours Test 10/08/16 05:40 White Blood Count 9.88 K/uL Red Blood Count 3.73 M/uL Hemoglobin 11.2 g/dL Hematocrit 34.3 % Mean Corpuscular Volume 92.0 fL Mean Corpuscular Hemoglobin 30.0 pg Mean Corpuscular Hemoglobin Concent 32.7 g/dl Platelet Count 179 K/uL Mean Platelet Volume 10.5 fL Neutrophils (%) (Auto) 83.3 % Lymphocytes (%) (Auto) 10.0 % Monocytes (%) (Auto) 6.6 % Eosinophils (%) (Auto) 0.0 % Basophils (%) (Auto) 0.0 % Neutrophils # (Auto) 8.23 K/uL Lymphocytes # (Auto) 0.99 K/uL Monocytes # (Auto) 0.65 K/uL Eosinophils # (Auto) 0.00 K/uL Basophils # (Auto) 0.00 K/uL RDW Standard Deviation 46.9 fL RDW Coefficient of Variation 14.0 % Immature Granulocyte % (Auto) 0.1 % Immature Granulocyte # (Auto) 0.01 K/uL Sodium Level 142 mmol/L Potassium Level 4.0 mmol/L Chloride Level 108 mmol/L Carbon Dioxide Level 24 mmol/L Anion Gap 10.0 mmol/L Blood Urea Nitrogen 31 mg/dl Creatinine 0.95 mg/dl Est Creatinine Clear Calc Drug Dose 50.7 ml/min Estimated GFR () 63.7 Estimated GFR (Non- 55.0 BUN/Creatinine Ratio 33.1 Random Glucose 111 mg/dl Calcium Level 9.0 mg/dl Assessment and Plan 1. Left sided pneumonia vs chemical pneumonitis from aspiration. 2. sepsis 2nd to left-sided pneumonia - doing well on oral Levaquin. 3. dementia with history of behavioral disturbance - continue risperdal. 4. asthma - with exacerbation - change to oral prednisone. nebs. O2. 7. CKD stage 3 - creatinine is at baseline. 8. DVT proph - heparin. 9. HTN - lability makes it difficult to treat without side effect of getting BP too low. 10. bradycardia - seems to be improving. Patient is DNR. I do not plan to get aggressive with this issue. Hoping for discharge tomorrow to the rehab unit at the same facility in which she resides.
[2016-10-08] MEDS: DONEPEZIL HCL 10 MG TAB PO SCH (20:52)
[2016-10-08] MEDS: TRAZODONE HCL 50 MG TAB PO SCH (20:54)
[2016-10-08] MEDS: PANTOprazole SOD 40 MG TAB PO SCH (20:54)
[2016-10-08 21:49] VITALS: BP 165/80; PULSE 48
[2016-10-08 23:16] VITALS: BP 160/65; PULSE 47; O2SAT 94
[2016-10-08 23:28] VITALS: TEMP 36.9
[2016-10-09 07:40] VITALS: BP_SYST 204; BP_SYST 208; BP_DIAS 68; BP_DIAS 76; PULSE 49; TEMP 36.7; O2SAT 98
[2016-10-09] MEDS: HEPARIN SOD 5000 UNIT/0.5 ML CARP SQ SCH ×2 (08:18→20:08)
[2016-10-09] MEDS: IPRATROPIUM BROMIDE/ALBUTEROL respimat INH INH SCH (08:30)
[2016-10-09] MEDS: MULTIVITAMIN TAB PO SCH (08:30)
[2016-10-09] MEDS: GABAPENTIN 300 MG CAP PO SCH ×3 (08:30→19:59)
[2016-10-09] MEDS: SERTRALINE HCL 50 MG TAB PO SCH (08:31)
[2016-10-09] MEDS: LEVOFLOXACIN 500 MG TAB PO SCH (08:32)
[2016-10-09] MEDS: MoRPHine SULFATE CR 15 MG TAB (MS CONTIN) PO SCH ×2 (08:32→20:03)
[2016-10-09] MEDS: DICLOFENAC SOD 1% GEL 100 GM TUBE EXT SCH ×4 (08:33→19:58)
[2016-10-09] MEDS: RISPERIDONE ODT 0.5MG PO SCH ×3 (08:33→20:06)
[2016-10-09 14:40] VITALS: BP 199/76; PULSE 44
[2016-10-09 15:04] VITALS: BP 175/67; PULSE 48; TEMP 36.6; O2SAT 95
--- NOTE | 2016-10-09 17:53 | Hospitalist Progress Note ---
Hospitalist Progress Note Date of Service Oct 09, 2016. Subjective Pt evaluation today including: conversation w/ patient, physical exam, chart review, lab review, review of studies, review of inpatient medication list The patient is pleasant, but less animated today. Awaiting bed to be made available at rehab. Additional Comments: Unobtainable due to dementia. Objective Vital Signs Date Time Temp Pulse Resp B/P Pulse Ox O2 Delivery O2 Flow Rate FiO2 10/09/16 15:04 36.6 48 18 175/67 95 Room Air 10/09/16 14:40 44 199/76 10/09/16 10:52 Room Air 10/09/16 07:40 36.7 49 20 208/68 98 Room Air 204/76 10/09/16 00:25 Room Air 10/08/16 23:28 36.9 10/08/16 23:16 47 20 160/65 94 10/08/16 21:49 48 165/80 Physical Exam Notes: GEN: Awake. Not in acute distress HEENT: Tm's intact, no inflammation, EOMI, PERRLA, MMM Neck: Soft, supple Lungs: CTA b/l, no r/r/w Heart: REG, nrl S1S2 without murmurs, rubs or gallops Abdomen: Soft, NT, ND, + BS EXT: No C/C + trace ankle edema. NEURO: CN's II-XII grossly intact, non-focal Skin: warm, dry, no rashes PSYCH: No agitation, or combative behavior reported. Assessment and Plan 1. Left sided pneumonia vs chemical pneumonitis from aspiration. 2. sepsis 2nd to left-sided pneumonia - doing well on oral Levaquin. 3. dementia with history of behavioral disturbance - continue risperdal. 4. asthma - stable now continue nebs. O2. 7. CKD stage 3 - creatinine is at baseline. 8. DVT proph - heparin. 9. HTN - consistently high today. I will add antihypertensive. 10. bradycardia - Patient is DNR. I do not plan to get aggressive with this issue. 11. Venous stasis ulcers on distal right toes 2 and 3 awaiting a rehab bed. Discharge planning: detention facility (for rehab.)
[2016-10-09] MEDS ORDERED: AMLODIPINE BESYLATE 5 MG TAB PO ONE (19:30)
[2016-10-09] MEDS ORDERED: HydrALAZINE HCL 20 MG/ML VIAL IV. PRN (19:30)
[2016-10-09 20:00] VITALS: BP 176/68; PULSE 45; TEMP 36.8; O2SAT 96
[2016-10-09] MEDS: PANTOprazole SOD 40 MG TAB PO SCH (20:04)
[2016-10-09] MEDS: TRAZODONE HCL 50 MG TAB PO SCH (20:04)
[2016-10-09] MEDS: DONEPEZIL HCL 10 MG TAB PO SCH (20:04)
[2016-10-09] MEDS ORDERED: HydrALAZINE 10 MG TAB PO PRN (21:15)
[2016-10-09 23:37] VITALS: BP 199/80; PULSE 58; TEMP 35.8; O2SAT 93
[2016-10-10] MEDS ORDERED: AMLODIPINE BESYLATE 5 MG TAB PO ONE (01:15)
[2016-10-10] MEDS: DICLOFENAC SOD 1% GEL 100 GM TUBE EXT SCH ×3 (02:08→13:56)
[2016-10-10 07:18] VITALS: BP 157/71; PULSE 45; TEMP 36.4; O2SAT 94
[2016-10-10] MEDS: GABAPENTIN 300 MG CAP PO SCH ×2 (07:47→13:56)
[2016-10-10] MEDS: MULTIVITAMIN TAB PO SCH (07:47)
[2016-10-10] MEDS: IPRATROPIUM BROMIDE/ALBUTEROL respimat INH INH SCH (07:47)
[2016-10-10] MEDS: SERTRALINE HCL 50 MG TAB PO SCH (07:48)
[2016-10-10] MEDS: RISPERIDONE ODT 0.5MG PO SCH ×2 (07:52→13:56)
[2016-10-10] MEDS: HEPARIN SOD 5000 UNIT/0.5 ML CARP SQ SCH (07:52)
[2016-10-10] MEDS ORDERED: AMLODIPINE BESYLATE 5 MG TAB PO SCH (08:00)
[2016-10-10] MEDS: MoRPHine SULFATE CR 15 MG TAB (MS CONTIN) PO SCH (09:58)
[2016-10-10] MEDS: LEVOFLOXACIN 500 MG TAB PO SCH (09:58)
[2016-10-10] MEDS: ACETAMINOPHEN 325 MG TAB PO PRN ×2 (10:28→10:35)
[2016-10-10 11:52] VITALS: BP 157/71; PULSE 45; TEMP 36.4; O2SAT 94
--- NOTE | 2016-10-10 13:09 | Discharge Summary ---
Discharge Summary Date of Service Oct 10, 2016. Discharge Summary Admission Date: Oct 05, 2016 at 11:36 Discharge Date: Oct 10, 2016 Discharge Disposition: Rehab Principal Diagnosis: Pneumonia left. Problems/Secondary Diagnoses: Dementia, Venous stasis ulcers on distal right toes 2 and 3 Immunizations: Have You Had Influenza Vaccine: Unknown Influenza Vaccine Date: Aug 22, 2009 History of Tetanus Vaccine?: Unknown Tetanus Immunization Date: Jan 07, 2005 History of Pneumococcal: Unknown Pneumococcal Date: Feb 20, 2008 History of Hepatitis B Vaccine: Unknown Procedures: NONE. Consultations: NONE. Medication Reconciliation New Medications: Prednisone Tab (Prednisone) 10 Mg Tab 10 MG PO DIRECTED for 10 Days, #20 TAB NS Levofloxacin (Levofloxacin) 500 Mg Tab 500 MG PO DAILY@11 for 6 Days, #6 TAB 0 Refills Continued Medications: Acetaminophen (Tylenol) 500 Mg Tab 500 MG PO , TAB Cholecalciferol (Vitamin D3) 2,000 Unit Cap 1 CAP PO DAILY for 30 Days, #30 CAP 3 Refills Donepezil Hydrochloride (Donepezil Hcl) 10 Mg Tab 10 MG PO HS Gabapentin (Neurontin) 300 Mg Cap 300 MG PO TID, CAP Ipratropium-Albuterol (Combivent Respimat) 1 Aer Aer 1 PUFFS INH QD, INH Magnesium Hydroxide (Milk of Magnesia 400 mg/5Ml) 1 Linda Linda 30 ML PO DIRECTED PRN for Constipation Morphine Sulfate (Morphine Sulfate Cr) 15 Mg Tab 15 MG PO Q12 Multivitamin (Multivitamin) Tab 1 TAB PO DAILY, TAB Ondansetron Hcl (Zofran) 4 Mg Tab 4 MG PO Q6 PRN for Nausea, TAB Pantoprazole (Protonix) 40 Mg Tab 40 MG PO QPM, 0 Refills Polyethylene Glycol 3350 (Bulk (Polyethylene Glycol 3350) 1 Pow Pow 17 GM PO DAILY, #255 GM Risperidone (Risperdal) 0.25 Mg Tab 0.25 MG PO BID, TAB Risperidone (Risperdal) 0.5 Mg Tab 0.5 MG PO HS, TAB Sennosides-Docusate Sodium (Senna S) 1 Tab Tab 1 TAB PO BID PRN for Constipation Sertraline (Zoloft) 50 Mg Tab 75 MG PO DAILY, TAB Spironolactone (Aldactone) 25 Mg Tab 25 MG PO 2XWK, 0 Refills TAKE ON TUESDAYS AND SATURDAYS Tramadol (Ultram) 50 Mg Tab 50 MG PO Q24H PRN for Pain, TAB Trazodone Hcl (Trazodone) 50 Mg Tab 50 MG PO HS for Anxiety, TAB Discharge Exam ROS: unobtainable secondary to dementia. GEN: Awake, smiles occasionally does not appear to be in distress. HEENT: Tm's intact, no inflammation, EOMI, PERRLA, MMM Neck: Soft, supple Lungs: CTA b/l, no r/r/w Heart: REG, nrl S1S2 without murmurs, rubs or gallops Abdomen: Soft, NT, ND, + BS EXT: No C/C + trace edema at b/l ankles. NEURO: CN's II-XII grossly intact, non-focal Skin: warm, dry, no rashes PSYCH: confused, very little communication will say "OK" with some questions. Hospital Course Patient was admitted for a Left sided pneumonia/pneumonitis with increased weakness and change in mental status. She was treated with broad coverage IV antibiotics. Over 36 hours she improved in regards to her mentation to the point that she had a few episodes of combative behavior which improved once we placed her back on the Risperidone. After she pulled her IV out the 3rd time, I switched her to oral antibiotic. She tolerated this well and did not have a fever or cough over the past 48 hours. She is returning to [facility] in the rehab side then likely transition back to dementia unit. Other issues noted during hospital stay: Venous stasis ulcers on distal right toes 2 and 3 - treatment with antibiotics, waffle boots, position changes, wound nurse evaluation. She had no growth in her blood cultures. She is DNR status. DVT prophylaxis was sub-q heparin. Total Time Spent: Greater than 30 minutes This includes examination of the patient, discharge planning, medication reconciliation, and communication with other providers. Discharge Instructions Please refer to the electronic Patient Visit Report (Discharge Instructions) for additional information. Follow-Up PCP in 5-7 days.
[2016-10-10] MEDS: TRAMADOL HCL 50 MG TAB PO PRN (13:55)
--- NOTE | 2016-10-14 06:11 | EDITING REQUIRED CODING QUERY ---
CODING QUERY To promote full compliance with coding requirements relating to patient care, provider participation is requested in all cases of dispensing and measuring optician uncertainty. Please assist us with the question(s) below: Coding Question(s): Dr. Palencia, Sepsis is documented throughout the patient's chart, but is not mentioned on the discharge summary. Please clarify if sepsis was: ( X ) present and treated during this admission ( ) ruled out ( ) other, please explain Physician's Response(s): Thank you for your time, ROLANDA Samayao, POP SINGER
[2016-11-18] MEDS ORDERED: LCTX PO (13:48)
[2016-11-18] MEDS ORDERED: DOXY100C41 PO (13:48)
[2016-11-18] MEDS ORDERED: LEVO1TAB34 PO (13:48)
[2017-01-14] MEDS ORDERED: ACET-1256 PO ×2 (01:11→01:31)
[2017-01-14] MEDS ORDERED: ESCI10TA17 PO (01:24)
[2017-01-14] MEDS ORDERED: SPIR25TA PO (03:36)
[2017-01-14] MEDS ORDERED: PANT40TA PO (03:36)
[2017-01-14] MEDS ORDERED: GABA300C19 PO (06:07)
[2017-01-14] MEDS ORDERED: POLY1POW2 PO (09:47)
[2017-01-14] MEDS ORDERED: POTA10CA28 PO (10:57)
[2017-01-14] MEDS ORDERED: RISP0.258 PO (11:00)
[2017-01-14] MEDS ORDERED: TRAZ50TA35 PO (13:16)
[2017-01-14] MEDS ORDERED: CHOL2000 PO (15:46)
[2017-03-20] MEDS ORDERED: METO50TA16 PO (13:51)
[2017-03-20] MEDS ORDERED: DLCSR120 PO (13:51)
[2017-03-20] MEDS ORDERED: TRAM-10 PO (13:51)
[2017-03-20] MEDS ORDERED: CMD5 PO (13:51)
[2017-03-23] MEDS ORDERED: DLCSR120 PO (12:16)
[2017-03-23] MEDS ORDERED: CEFD1CAP14 PO (12:16)
[2017-03-23] MEDS ORDERED: CMD3 PO (12:16)
[2017-03-23] MEDS ORDERED: TRAZ50TA35 PO (12:16)
== END 2016-10-10 16:12 | DRG 871 ==
LOC: ENRESERVTM → ENRESERVDT → EDBD 08:48 → C.EDB 08:49 → EEVIPCON 11:36 → C.4E 11:36
PROVIDERS: ADMIT Internal Medicine; ATTEND Internal Medicine
DX: A41.9 Sepsis, unspecified organism (principal); J18.9 Pneumonia, unspecified organism; J96.01 Acute respiratory failure with hypoxia; G93.41 Metabolic encephalopathy; F01.51 Vascular dementia, unspecified severity, with behavioral disturbance; F02.81 Dementia in other diseases classified elsewhere, unspecified severity, with behavioral disturbance; L97.519 Non-pressure chronic ulcer of other part of right foot with unspecified severity; I87.8 Other specified disorders of veins; R11.11 Vomiting without nausea; E86.0 Dehydration; R74.8 Abnormal levels of other serum enzymes; R00.1 Bradycardia, unspecified; R32 Unspecified urinary incontinence; I48.91 Unspecified atrial fibrillation; I12.9 Hypertensive chronic kidney disease with stage 1 through stage 4 chronic kidney disease, or unspecified chronic kidney disease; N18.3 Chronic kidney disease, stage 3 (moderate); J45.909 Unspecified asthma, uncomplicated; K21.9 Gastro-esophageal reflux disease without esophagitis; G20 Parkinson's disease; Z66 Do not resuscitate; Z96.653 Presence of artificial knee joint, bilateral; Z79.891 Long term (current) use of opiate analgesic; Z79.899 Other long term (current) drug therapy; Z86.711 Personal history of pulmonary embolism

== ENCOUNTER → 2016-11-05 | Outpatient (CLI) | payer OTHER ==
[~2016-11-05] MED LIST changes: +ACET-1256 PO; +CEFD1CAP14 PO; +CMD3 PO; +CMD5 PO; +DICL1GEL12 TOP; +DLCSR120 PO; +DOXY100C41 PO; +ESCI10TA17 PO; +GABA-1218 PO; +HYDR-5688 PO; +LCTX PO; +LEVO1TAB34 PO; -LIDO1CRE16 TOP; +LVQ500 PO; +METO50TA16 PO; +PANT40TA PO; +POLY1POW2 PO; +POTA10CA28 PO; +SPIR25TA PO; +TRAZ50TA35 PO; +ZNTT/150 PO; +[UNRECOGNIZED DRUG - OTHER] TOP; -voltaren gel TD
== END | disposition home or self-care (01) ==
LOC: C.LABOUTLO 17:23
PROVIDERS: ATTEND Internal Medicine
DX: R19.7 Diarrhea, unspecified (principal)

== ENCOUNTER → 2016-11-06 | Outpatient (CLI) | payer OTHER ==
[2016-11-06 09:43] LABS: BASO % 0.3 %; BASO ABS # 0.02 K/uL (0-0.2); COMPLETE YES; EOS % 2.4 %; HEMATOCRIT 32.5 % (37-47); IG% 0.3 %; LYMPH % 31.1 %; LYMPH ABS # 1.78 K/uL (1.2-3.4); MEAN CELL VOLUME 91.5 fL (80-100); MEAN CORPUSCULAR HEMOGLOBIN 29.3 pg (25-34); MEAN PLATELET VOLUME 9.5 fL (7.4-10.4); MONO % 12.2 %; NEUT % 53.7 %; PLATELET COUNT 209 K/uL (130-400); RED BLOOD COUNT 3.55 M/uL (4.2-5.4); WHITE BLOOD COUNT 5.73 K/uL (4.8-10.8)
[2016-11-06 10:13] LABS: BLOOD UREA NITROGEN 16 mg/dl (7-18); BUN/CREATININE RATIO 20.5 (10-20); CALCIUM 8.7 mg/dl (8.5-10.1); CARBON DIOXIDE 29 mmol/L (21-32); CHLORIDE 111 mmol/L (98-107); CREATININE 0.78 mg/dl (0.60-1.20); GLUCOSE 91 mg/dl (70-99); POTASSIUM 3.3 mmol/L (3.5-5.1); SODIUM 145 mmol/L (136-145)
--- NOTE | 2016-11-07 12:04 | CODING QUERY NO DIAGNOSIS ---
TREATMENT RENDERED WITHOUT A DIAGNOSIS To promote full compliance with coding requirements relating to patient care, physician participation is requested in all cases of route supervisor uncertainty. Please assist us with providing a diagnosis/symptom for the test(s) below: A diagnosis/symptom was not documented on your Order. A valid diagnosis/symptom is required to bill all insurances. Please remember that we are unable to code a diagnosis of rule out, probable, possible, questionable, or suspected. Tests that require a diagnosis: DOS: 11/06/16 * CBC DIAGNOSIS: * PRP DIAGNOSIS: * TSH DIAGNOSIS: Provider Signature: Date: Thank you Zakia Brody [facility] Information Management Once completed, please kindly fax back to [phone] For questions please call [phone]
== END ==
LOC: C.LABOUTLO 09:34
PROVIDERS: ATTEND Internal Medicine
DX: D64.9 Anemia, unspecified (principal); E87.6 Hypokalemia; E03.9 Hypothyroidism, unspecified

== ENCOUNTER → 2016-11-08 | Outpatient (CLI) | payer OTHER ==
[2016-11-08 18:30] LABS: URINE APPEARANCE CLOUDY (CLEAR); URINE COLOR DK YELLOW; URINE EPITHELIAL CELL AUTO >30 /lpf (0-5); URINE NITRITE NEG (NEG); URINE SPECIFIC GRAVITY 1.028 (1.000-1.030); UROBILINOGEN NEG (NEG)
[2016-11-08 18:35] LABS: MANUAL MICROSCOPIC REQUIRED? NO; REVIEW REQ? YES
[2016-11-08 18:36] LABS: URINE BILIRUBIN NEG (NEG)
[2016-11-08 18:47] LABS: URINE MUCUS PRESENT (NONE PRSENT)
== END | disposition home or self-care (01) ==
LOC: C.LABSPEC 16:30
PROVIDERS: ATTEND Internal Medicine
DX: N39.0 Urinary tract infection, site not specified (principal)

== ENCOUNTER → 2016-11-13 | Outpatient (CLI) | payer OTHER ==
[2016-11-13 09:49] LABS: BLOOD UREA NITROGEN 17 mg/dl (7-18); BUN/CREATININE RATIO 15.8 (10-20); CALCIUM 8.7 mg/dl (8.5-10.1); CARBON DIOXIDE 26 mmol/L (21-32); CHLORIDE 113 mmol/L (98-107); GLUCOSE 84 mg/dl (70-99); SODIUM 145 mmol/L (136-145)
--- NOTE | 2016-11-14 08:36 | CODING QUERY NO DIAGNOSIS ---
TREATMENT RENDERED WITHOUT A DIAGNOSIS Dr. Farmer, To promote full compliance with coding requirements relating to patient care, physician participation is requested in all cases of certified professional coder uncertainty. Please assist us with providing a diagnosis/symptom for the test(s) below: A diagnosis/symptom was not documented on your Order. A valid diagnosis/symptom is required to bill all insurances. Please remember that we are unable to code a diagnosis of rule out, probable, possible, questionable, or suspected. Tests that require a diagnosis: * BMP DIAGNOSIS: DATE OF SERVICE: 11/13/16 Provider Signature: Date: Thank you Ramon Londono [facility] Information Management Once completed, please kindly fax back to [phone] For questions please call [phone]
== END | disposition home or self-care (01) ==
LOC: C.LABOUTLO 08:34
PROVIDERS: ATTEND Internal Medicine
DX: I11.9 Hypertensive heart disease without heart failure (principal)

== ENCOUNTER 2016-11-15 10:16 | Observation (INO) | payer OTHER ==
[~2016-11-15] VITALS: Ht 170.2 cm; Wt 89.6 kg
[~2016-11-15 10:16] MED LIST changes: -ACET-1256 PO; -CEFD1CAP14 PO; -CHOL2000 PO; -CMD3 PO; -CMD5 PO; -DICL1GEL12 TOP; -DLCSR120 PO; -DOXY100C41 PO; -ESCI10TA17 PO; -GABA-1218 PO; -HYDR-5688 PO; -LCTX PO; -LEVO1TAB34 PO; -METO50TA16 PO; -PANT40TA PO; -POLY1POW2 PO; -POTA10CA28 PO; -SPIR25TA PO; -TRAZ50TA35 PO; -ZNTT/150 PO; -[UNRECOGNIZED DRUG - OTHER] TOP
[2016-11-15] MEDS ORDERED: SODIUM CHLORIDE 0.9% 1000ML 1,000 ML IV STA (10:38)
[2016-11-15] MEDS ORDERED: DICL1GEL12 TOP (10:57)
[2016-11-15] MEDS ORDERED: HYDR-5688 PO (10:57)
--- NOTE | 2016-11-15 11:04 | DIAGNOSTIC IMAGING REPORT ---
CHEST ONE VIEW PORTABLE CLINICAL HISTORY: EVALUATE WEAKNESS dyspnea COMPARISON STUDY: 10/05/2016 FINDINGS: Improved exam compared to prior. Improved aeration left midlung and left base medially. Lungs otherwise are clear. Mild stable cardia megaly. IMPRESSION: Mild stable cardiomegaly. Lungs are clear at this time. Electronically signed by: Keegan Sharma M.D. 11/15/2016 11:02 AM Dictated Date/Time: 11/15/2016 11:01 AM
[2016-11-15 11:29] LABS: BASO % 0.6 %; BASO ABS # 0.05 K/uL (0-0.2); COMPLETE YES; EOS % 2.1 %; HEMATOCRIT 34.7 % (37-47); IG% 0.1 %; LYMPH % 19.7 %; LYMPH ABS # 1.58 K/uL (1.2-3.4); MEAN CELL VOLUME 90.1 fL (80-100); MEAN CORPUSCULAR HEMOGLOBIN 29.4 pg (25-34); MEAN CORPUSCULAR HGB CONC 32.6 g/dl (32-36); MEAN PLATELET VOLUME 9.5 fL (7.4-10.4); MONO % 11.3 %; NEUT % 66.2 %; PLATELET COUNT 252 K/uL (130-400); RED BLOOD COUNT 3.85 M/uL (4.2-5.4); WHITE BLOOD COUNT 8.02 K/uL (4.8-10.8)
--- NOTE | 2016-11-15 11:32 | DIAGNOSTIC IMAGING REPORT ---
HEAD CT NONCONTRAST CT DOSE: 1750.87 mGycm HISTORY: Mental status change EVALUATE WEAKNESS TECHNIQUE: Multiaxial CT images of the head were performed without the use of intravenous contrast. Comparison: 10/05/2016 Findings: The paranasal sinuses and mastoid air cells are clear. The calvarium and skull base are intact. The ventricles and sulci are within normal limits. There is no mass, hematoma, midline shift, or acute infarct. Age-related atrophy and chronic small vessel change. Impression: No acute intracranial abnormality. Age-related and chronic small vessel change Electronically signed by: Keegan Sharma M.D. 11/15/2016 11:30 AM Dictated Date/Time: 11/15/2016 11:28 AM
[2016-11-15 11:42] LABS: INR 1.1 (0.9-1.1); PARTIAL THROMBOPLASTIN RATIO 0.9; PROTHROMBIN TIME (PATIENT) 11.3 SECONDS (9.0-12.0)
[2016-11-15 11:47] LABS: ALT/SGPT 18 U/L (12-78); AST/SGOT 16 U/L (15-37); BLOOD UREA NITROGEN 13 mg/dl (7-18); BUN/CREATININE RATIO 12.8 (10-20); CALCIUM 8.8 mg/dl (8.5-10.1); CARBON DIOXIDE 27 mmol/L (21-32); CHLORIDE 109 mmol/L (98-107); GLUCOSE 94 mg/dl (70-99); MAGNESIUM 2.3 mg/dl (1.8-2.4); POTASSIUM 4.3 mmol/L (3.5-5.1); SODIUM 142 mmol/L (136-145)
[2016-11-15 11:55] LABS: ALKALINE PHOSPHATASE 83 U/L (45-117)
[2016-11-15 14:44] LABS: URINE APPEARANCE CLEAR (CLEAR); URINE BILIRUBIN NEG (NEG); URINE COLOR YELLOW; URINE EPITHELIAL CELL AUTO >30 /lpf (0-5); URINE NITRITE NEG (NEG); URINE SPECIFIC GRAVITY 1.014 (1.000-1.030); UROBILINOGEN NEG (NEG)
[2016-11-15 14:47] LABS: MANUAL MICROSCOPIC REQUIRED? NO; REVIEW REQ? YES
[2016-11-15] MEDS ORDERED: ONDANSETRON INJ 2 MG/ML 2 ML VIAL IV PRN (16:00)
[2016-11-15] MEDS ORDERED: IV FLUIDS COMPLETED PRN (16:30)
--- NOTE | 2016-11-15 16:32 | EMERGENCY ROOM VISIT NOTE ---
History Report prepared by Chilo: Marquis Odonnell Under the Supervision of: Dr. Álvaro Yang M.D. First contact with patient: 10:18 Chief Complaint: UNRESPONSIVE Stated Complaint: UNRESPONSIVE History of Present Illness The patient is a 86 year old female who presents to the Emergency Room via ambulance with complaints of constant unresponsiveness occurring prior to arrival. The EMS states that the patient was sitting at a table this morning eating breakfast, and she slumped over. The EMS states that her sugar was 75, heart rate of 60bpm, and blood pressures in the 130s. The EMS states that the patient will respond only to painful stimuli very minimally. Per the EMS, someone poured syrup down her throat to give her sugar. Per the patient's daughter, the patient had urinary frequency last week. History is limited due to unresponsiveness. Source of History: EMS History Limited By: other (unresponsiveness) Onset: prior to arrival Position: other (global) Quality: other (unresponsive) Timing: constant Review of Systems Limited due to unresponsiveness. Past Medical & Surgical Medical Problems: (1) Asthma (2) Atrial Fibrillation (3) Dementia (4) Diverticulosis Colon (W/O Ment Of Hemorrhage) (5) DVT (deep venous thrombosis) (6) Hypertension Nos (7) PE (pulmonary embolism) (8) SBO (small bowel obstruction) Surgical Problems: (1) History of appendectomy (2) History of hemicolectomy (3) History of tonsillectomy (4) History of total bilateral knee replacement Family History Dementia MOTHER Heart disease FATHER Social History Smoking Status: Unknown if Ever Smoked Alcohol Use: none Drug Use: none Marital Status: Housing Status: intermediate Occupation Status: retired Current/Historical Medications Scheduled Acetaminophen (Tylenol), 500 MG PO TID Cholecalciferol (Vitamin D3), 1 CAP PO DAILY Diclofenac Sodium (Topical) (Voltaren 1% Top Gel), 1 APPLN TOP QID Gabapentin (Neurontin), 300 MG PO Q8 Hydrocodone/Acetaminophen 5MG/325MG ([place] 5MG/325MG), 0.5 TABLET PO TID Pantoprazole (Protonix), 40 MG PO HS Polyethylene Glycol 3350 (Bulk (Polyethylene Glycol 3350), 17 GM PO DAILY Potassium Chloride (Micro-K Ext Rel), 10 MEQ PO QPM Risperidone (Risperdal), 0.5 MG PO HS Risperidone (Risperdal), 0.25 MG PO BID Sertraline (Zoloft), 75 MG PO DAILY Spironolactone (Aldactone), 25 MG PO 2XWK Trazodone Hcl (Trazodone), 50 MG PO HS Allergies Coded Allergies: Penicillins (Verified Allergy, Mild, 07/28/16) Sertraline (Unverified Allergy, Unknown, UNKNOWN, 10/05/16) Sulfa Drugs (Verified Allergy, Unknown, 07/28/16) Uncoded Allergies: human albumin (Adverse Reaction, Unknown, unknown, 01/04/16) Physical Exam Vital Signs Date Time Temp Pulse Resp B/P Pulse Ox O2 Delivery O2 Flow Rate FiO2 11/15/16 16:25 68 18 150/83 100 Room Air 11/15/16 14:24 60 16 138/57 100 Room Air 11/15/16 13:02 67 16 164/86 97 Room Air 11/15/16 11:35 57 16 155/70 100 Room Air 11/15/16 11:03 59 20 167/80 100 Nasal Cannula 2.0 11/15/16 10:40 59 11/15/16 10:35 36.6 60 20 144/82 100 Nasal Cannula 3.0 11/15/16 10:25 95 Room Air 2.0 11/15/16 10:25 90 Nasal Cannula 3.0 Physical Exam GENERAL: Minimally responsive. Resisting attempts tto open her eyes. HENT: Normocephalic, atraumatic. Oropharynx unremarkable. EYES: Pupils are 3mm bilaterally and minimally responsive. Normal conjunctiva. Sclera non-icteric. NECK: Supple. No nuchal rigidity. FROM. No JVD. RESPIRATORY: Clear to auscultation. CARDIAC: Regular rate, normal rhythm. Extremities warm and well perfused. Pulses equal. ABDOMEN: Soft, non-distended. No tenderness to palpation. No rebound or guarding. No masses. RECTAL: Deferred. MUSCULOSKELETAL: Chest examination reveals no tenderness. The back is symmetrical on inspection without obvious abnormality. There is no CVA tenderness to palpation. No joint edema. UPPER EXTREMITIES: Bruise on the left upper arm bicep area. LOWER EXTREMITIES: Right lower leg is erythematous. 2+ edema bilaterally but right leg is erythematous and warm. Abrasion to the right knee. NEURO: Normal sensorium. No sensory or motor deficits noted. SKIN: No rash or jaundice noted. Medical Decision & Procedures ER Provider Diagnostic Interpretation: X ray results as stated below per my interpretation and radiologist interpretation. Other radiology results as stated below per my review and radiologist interpretation HEAD CT NONCONTRAST CT DOSE: 1750.87 mGycm HISTORY: Mental status change EVALUATE WEAKNESS TECHNIQUE: Multiaxial CT images of the head were performed without the use of intravenous contrast. Comparison: 10/05/2016 Findings: The paranasal sinuses and mastoid air cells are clear. The calvarium and skull base are intact. The ventricles and sulci are within normal limits. There is no mass, hematoma, midline shift, or acute infarct. Age-related atrophy and chronic small vessel change. Impression: No acute intracranial abnormality. Age-related and chronic small vessel change Electronically signed by: Keegan Sharma M.D. 11/15/2016 11:30 AM Dictated Date/Time: 11/15/2016 11:28 AM CHEST ONE VIEW PORTABLE CLINICAL HISTORY: EVALUATE WEAKNESS dyspnea COMPARISON STUDY: 10/05/2016 FINDINGS: Improved exam compared to prior. Improved aeration left midlung and left base medially. Lungs otherwise are clear. Mild stable cardia megaly. IMPRESSION: Mild stable cardiomegaly. Lungs are clear at this time. Electronically signed by: Keegan Sharma M.D. 11/15/2016 11:02 AM Dictated Date/Time: 11/15/2016 11:01 AM Laboratory Results 11/15/16 11:10 Red Blood Count 3.85, Mean Corpuscular Volume 90.1, Mean Corpuscular Hemoglobin 29.4, Mean Corpuscular Hemoglobin Concent 32.6, Mean Platelet Volume 9.5, Neutrophils (%) (Auto) 66.2, Lymphocytes (%) (Auto) 19.7, Monocytes (%) (Auto) 11.3, Eosinophils (%) (Auto) 2.1, Basophils (%) (Auto) 0.6, Neutrophils # (Auto ) 5.30, Lymphocytes # (Auto) 1.58, Monocytes # (Auto) 0.91, Eosinophils # (Auto ) 0.17, Basophils # (Auto) 0.05 11/15/16 11:10 Test 11/15/16 11:10 11/15/16 14:14 White Blood Count 8.02 K/uL (4.8-10.8) Red Blood Count 3.85 M/uL (4.2-5.4) Hemoglobin 11.3 g/dL (12.0-16.0) Hematocrit 34.7 % (37-47) Mean Corpuscular Volume 90.1 fL (80-100) Mean Corpuscular Hemoglobin 29.4 pg (25-34) Mean Corpuscular Hemoglobin Concent 32.6 g/dl (32-36) Platelet Count 252 K/uL (130-400) Mean Platelet Volume 9.5 fL (7.4-10.4) Neutrophils (%) (Auto) 66.2 % Lymphocytes (%) (Auto) 19.7 % Monocytes (%) (Auto) 11.3 % Eosinophils (%) (Auto) 2.1 % Basophils (%) (Auto) 0.6 % Neutrophils # (Auto) 5.30 K/uL (1.4-6.5) Lymphocytes # (Auto) 1.58 K/uL (1.2-3.4) Monocytes # (Auto) 0.91 K/uL (0.11-0.59) Eosinophils # (Auto) 0.17 K/uL (0-0.5) Basophils # (Auto) 0.05 K/uL (0-0.2) RDW Standard Deviation 47.0 fL (36.4-46.3) RDW Coefficient of Variation 14.4 % (11.5-14.5) Immature Granulocyte % (Auto) 0.1 % Immature Granulocyte # (Auto) 0.01 K/uL (0.00-0.02) Prothrombin Time 11.3 SECONDS (9.0-12.0) Prothromb Time International Ratio 1.1 (0.9-1.1) Activated Partial Thromboplast Time 23.6 SECONDS (21.0-31.0) Partial Thromboplastin Ratio 0.9 Anion Gap 6.0 mmol/L (3-11) Est Creatinine Clear Calc Drug Dose 45.0 ml/min Estimated GFR () 59.9 Estimated GFR (Non- 51.7 BUN/Creatinine Ratio 12.8 (10-20) Calcium Level 8.8 mg/dl (8.5-10.1) Magnesium Level 2.3 mg/dl (1.8-2.4) Total Bilirubin 0.4 mg/dl (0.2-1) Direct Bilirubin < 0.1 mg/dl (0-0.2) Aspartate Amino Transf (AST/SGOT) 16 U/L (15-37) Alanine Aminotransferase (ALT/SGPT) 18 U/L (12-78) Alkaline Phosphatase 83 U/L (45-117) Total Creatine Kinase 52 U/L (26-192) Creatine Kinase MB 2.6 ng/ml (0.5-3.6) Creatine Kinase MB Ratio 5.0 (0-3.0) Troponin I < 0.015 ng/ml (0-0.045) Total Protein 6.5 gm/dl (6.4-8.2) Albumin 3.3 gm/dl (3.4-5.0) Lipase 101 U/L (73-393) Thyroid Stimulating Hormone (TSH) 1.280 uIu/ml (0.300-4.500) Urine Color YELLOW Urine Appearance CLEAR (CLEAR) Urine pH 5.0 (4.5-7.5) Urine Specific [place] 1.014 (1.000-1.030) Urine Protein NEG (NEG) Urine Glucose (UA) NEG (NEG) Urine Ketones NEG (NEG) Urine Occult Blood TRACE (NEG) Urine Nitrite NEG (NEG) Urine Bilirubin NEG (NEG) Urine Urobilinogen NEG (NEG) Urine Leukocyte Esterase NEG (NEG) Urine WBC (Auto) 1-5 /hpf (0-5) Urine RBC (Auto) 0-4 /hpf (0-4) Urine Hyaline Casts (Auto) 1-5 /lpf (0-5) Urine Epithelial Cells (Auto) >30 /lpf (0-5) Urine Bacteria (Auto) NEG (NEG) Urine Renal Epithelial Cells 0-5 /lpf (0-5) Laboratory results reviewed by me Medications Administered Medications (Trade) Dose Ordered Sig/[place] Route Start Time Stop Time Status Last Admin Dose Admin Sodium Chloride (Nss 1000ml) 1,000 ml @ 125 mls/hr Q8H STAT IV 11/15/16 10:38 11/15/16 18:37 11/15/16 10:38 125 MLS/HR ECG Indication: other (unresponsive) Rate (beats per minute): 64 Rhythm: normal sinus Findings: no acute ischemic change, no ectopy, other (Poor baseline data) ED Course 1018: The patient was evaluated in room B1. A complete history and physical exam was performed. 1038: Sodium Chloride 1000 ml @ 125 mls/hr IV 1446: I reevaluated he patient, and she was resting. 1509: I discussed the patient's case with Alec Bryan. She is going to evaluate the patient for further treatment Medical Decision Prior records/ancillary studies reviewed and summarized above. Nursing notes reviewed and agree them. Additional history obtained from the daughter and EMS. The patient's history was concerning for altered mental status. Differential diagnosis: Etiologies such as infection, hypoglycemia, electrolyte abnormalities, cardiac sources, intracerebral event, toxicologic, neurologic, as well as others were entertained. Physical examination: As above. The patient was initially unresponsive but then began to follow commands and noted no abdominal or chest pain. She noted no headache or back pain. ER treatment provided: IV Lock Normal saline hydration On reassessment the patient was hemodynamically stable. Diagnostics interpretation by me: ECG: No acute ischemia The labs revealed an unremarkable CBC and chemistry panel. Urinalysis was unremarkable. Cardiac markers are unremarkable. Imaging studies: CT scan of the head and chest x-ray as above The patient's mental status seems to improve but she is very tired. She falls asleep easily. There was no report of her getting extra medication. She does follow commands. The exact etiology of her symptoms is not known at this time so further evaluation will be necessary. Consultation: A consultation was placed with the hospitalist. The case was discussed and diagnostics were reviewed. The patient was evaluated in the ER for further treatment. The chart was completed utilizing [employer] Speech voice recognition software. Grammatical errors, random word insertions, pronoun errors, and incomplete sentences are an occasional consequence of this system due to software limitations, ambient noise, and hardware issues. Any formal questions or concerns about the content, text, or information contained within the body of this dictation should be directly addressed to the physician for clarification. Consults Time Called: 1501 Consulting Physician: Alec Bryan Returned Call: 1509 I discussed the patient's case with Alec Bryan. She is going to evaluate the patient for further treatment. Impression Primary Impression: Altered mental status Scribe Attestation The scribe's documentation has been prepared under my direction and personally reviewed by me in its entirety. I confirm that the note above accurately reflects all work, treatment, procedures, and medical decision making performed by me. Departure Information Dispostion Being Evaluated By Hospitalist Referrals [place] (PCP) Patient Instructions My [facility]
--- NOTE | 2016-11-15 17:01 | History and Physical ---
History & Physical Date & Time of Service: Nov 15, 2016 at 16:34 Chief Complaint: Unresponsive Primary Care Physician: Dr. Farmer History of Present Illness 86 year old female who presents to the ER from [facility] after an episode of unresponsiveness. History is not reliable from patient. Per the [facility] staff, patient's mental status started to change while she was eating breakfast. They report that she started to become lethargic, which she does at times. Initially she was responding to verbal stimuli however progressed to being unresponsive. She never stopped breath. Blood sugar was checked and was 84. The nurse placed glucose gel on her gums. EMS was called and patient's mental status did not improve by the time they arrived. Nursing reports that patient will have episodes of lethargy occasionally however will usually respond to verbal stimuli. She has underlying dementia and is confused however can hold a conversation. They report that she is mostly wheelchair bound and will walk with a walker on occasion. She was empirically placed on Bactrim last week and completed the course on 11/12 for possible UTI. Culture was not obtained. Nursing denies any fever and chills. No other reportable symptoms. In the ER, patient's mental status has slowly improved. Labs are unremarkable. Vitals are stable. CXR is clear and CT head is negative. Past Medical/Surgical History Medical Problems: (1) Asthma Status: Chronic (2) Atrial Fibrillation Status: Chronic (3) Dementia Status: Chronic (4) Diverticulosis Colon (W/O Ment Of Hemorrhage) Status: Chronic (5) DVT (deep venous thrombosis) Permanent Comment: completed Xarelto therapy Status: Chronic (6) Hypertension Nos Status: Chronic (7) PE (pulmonary embolism) Permanent Comment: completed Xarelto therapy Status: Chronic (8) SBO (small bowel obstruction) Permanent Comment: s/p surgical release, lysis of adhesions Status: Chronic Surgical Problems: (1) History of appendectomy Status: Chronic (2) History of hemicolectomy Status: Chronic (3) History of tonsillectomy Status: Chronic (4) History of total bilateral knee replacement Status: Chronic Family History non contributory due to patient's advanced age Social History Smoking Status: Never Smoker Alcohol Use: none Housing status: [facility] Immunizations History of Pneumococcal: Yes Pneumococcal Date: Oct 28, 2011 Multi-Drug Resistant Organisms History of MDRO: No Allergies Coded Allergies: Penicillins (Verified Allergy, Mild, 07/28/16) Sertraline (Unverified Allergy, Unknown, UNKNOWN, 10/05/16) Sulfa Drugs (Verified Allergy, Unknown, 07/28/16) Uncoded Allergies: human albumin (Adverse Reaction, Unknown, unknown, 01/04/16) Home Medications Scheduled Acetaminophen (Tylenol), 500 MG PO TID Cholecalciferol (Vitamin D3), 1 CAP PO DAILY Diclofenac Sodium (Topical) (Voltaren 1% Top Gel), 1 APPLN TOP QID Gabapentin (Neurontin), 300 MG PO Q8 Hydrocodone/Acetaminophen 5MG/325MG ([place] 5MG/325MG), 0.5 TABLET PO TID Pantoprazole (Protonix), 40 MG PO HS Polyethylene Glycol 3350 (Bulk (Polyethylene Glycol 3350), 17 GM PO DAILY Potassium Chloride (Micro-K Ext Rel), 10 MEQ PO QPM Risperidone (Risperdal), 0.5 MG PO HS Risperidone (Risperdal), 0.25 MG PO BID Sertraline (Zoloft), 75 MG PO DAILY Spironolactone (Aldactone), 25 MG PO 2XWK Trazodone Hcl (Trazodone), 50 MG PO HS Review of Systems unobtainable - patient considered poor historian due to underlying dementia Physical Exam Vital Signs Date Time Temp Pulse Resp B/P Pulse Ox O2 Delivery O2 Flow Rate FiO2 11/15/16 16:25 68 18 150/83 100 Room Air 11/15/16 14:24 60 16 138/57 100 Room Air 11/15/16 13:02 67 16 164/86 97 Room Air 11/15/16 11:35 57 16 155/70 100 Room Air 11/15/16 11:03 59 20 167/80 100 Nasal Cannula 2.0 11/15/16 10:40 59 11/15/16 10:35 36.6 60 20 144/82 100 Nasal Cannula 3.0 11/15/16 10:25 95 Room Air 2.0 11/15/16 10:25 90 Nasal Cannula 3.0 General Appearance: no apparent distress Head: normocephalic Eyes: normal inspection ENT: hearing grossly normal Neck: supple, no JVD Respiratory/Chest: lungs clear, normal breath sounds, no respiratory distress Cardiovascular: regular rate, rhythm, normal peripheral pulses, + pertinent finding (+2 edema BLLE) Abdomen/GI: normal bowel sounds, non tender, soft Extremities/Musculoskelatal: normal inspection, no calf tenderness Neurologic/Psych: + disoriented (to place, time, and situation), + pertinent finding (generalized weakness noted; no focal deficits) Skin: + pertinent finding (erythema noted to BL shins, warm to touch; no open areas noted) Diagnostics Laboratory Results Results Past 24 Hours Test 11/15/16 11:10 11/15/16 14:14 Range/Units White Blood Count 8.02 4.8-10.8 K/uL Red Blood Count 3.85 4.2-5.4 M/uL Hemoglobin 11.3 12.0-16.0 g/dL Hematocrit 34.7 37-47 % Mean Corpuscular Volume 90.1 80-100 fL Mean Corpuscular Hemoglobin 29.4 25-34 pg Mean Corpuscular Hemoglobin Concent 32.6 32-36 g/dl Platelet Count 252 130-400 K/uL Mean Platelet Volume 9.5 7.4-10.4 fL Neutrophils (%) (Auto) 66.2 % Lymphocytes (%) (Auto) 19.7 % Monocytes (%) (Auto) 11.3 % Eosinophils (%) (Auto) 2.1 % Basophils (%) (Auto) 0.6 % Neutrophils # (Auto) 5.30 1.4-6.5 K/uL Lymphocytes # (Auto) 1.58 1.2-3.4 K/uL Monocytes # (Auto) 0.91 0.11-0.59 K/uL Eosinophils # (Auto) 0.17 0-0.5 K/uL Basophils # (Auto) 0.05 0-0.2 K/uL RDW Standard Deviation 47.0 36.4-46.3 fL RDW Coefficient of Variation 14.4 11.5-14.5 % Immature Granulocyte % (Auto) 0.1 % Immature Granulocyte # (Auto) 0.01 0.00-0.02 K/uL Prothrombin Time 11.3 9.0-12.0 SECONDS Prothromb Time International Ratio 1.1 0.9-1.1 Activated Partial Thromboplast Time 23.6 21.0-31.0 SECONDS Partial Thromboplastin Ratio 0.9 Sodium Level 142 136-145 mmol/L Potassium Level 4.3 3.5-5.1 mmol/L Chloride Level 109 98-107 mmol/L Carbon Dioxide Level 27 21-32 mmol/L Anion Gap 6.0 3-11 mmol/L Blood Urea Nitrogen 13 7-18 mg/dl Creatinine 1.00 0.60-1.20 mg/dl Est Creatinine Clear Calc Drug Dose 45.0 ml/min Estimated GFR () 59.9 Estimated GFR (Non- 51.7 BUN/Creatinine Ratio 12.8 10-20 Random Glucose 94 70-99 mg/dl Calcium Level 8.8 8.5-10.1 mg/dl Magnesium Level 2.3 1.8-2.4 mg/dl Total Bilirubin 0.4 0.2-1 mg/dl Direct Bilirubin < 0.1 0-0.2 mg/dl Aspartate Amino Transf (AST/SGOT) 16 15-37 U/L Alanine Aminotransferase (ALT/SGPT) 18 12-78 U/L Alkaline Phosphatase 83 45-117 U/L Total Creatine Kinase 52 26-192 U/L Creatine Kinase MB 2.6 0.5-3.6 ng/ml Creatine Kinase MB Ratio 5.0 0-3.0 Troponin I < 0.015 0-0.045 ng/ml Total Protein 6.5 6.4-8.2 gm/dl Albumin 3.3 3.4-5.0 gm/dl Lipase 101 73-393 U/L Thyroid Stimulating Hormone (TSH) 1.280 0.300-4.500 uIu/ml Urine Color YELLOW Urine Appearance CLEAR CLEAR Urine pH 5.0 4.5-7.5 Urine Specific [place] 1.014 1.000-1.030 Urine Protein NEG NEG Urine Glucose (UA) NEG NEG Urine Ketones NEG NEG Urine Occult Blood TRACE NEG Urine Nitrite NEG NEG Urine Bilirubin NEG NEG Urine Urobilinogen NEG NEG Urine Leukocyte Esterase NEG NEG Urine WBC (Auto) 1-5 0-5 /hpf Urine RBC (Auto) 0-4 0-4 /hpf Urine Hyaline Casts (Auto) 1-5 0-5 /lpf Urine Epithelial Cells (Auto) >30 0-5 /lpf Urine Bacteria (Auto) NEG NEG Urine Renal Epithelial Cells 0-5 0-5 /lpf Microbiology Results 11/15/16 Blood Culture, Received Pending 11/15/16 Blood Culture, Received Pending 11/15/16 Urine Culture, Received Pending Diagnostic Radiology CT Head Impression: No acute intracranial abnormality. Age-related and chronic small vessel change CXR IMPRESSION: Mild stable cardiomegaly. Lungs are clear at this time. Impression Assessment and Plan ALTERED MENTAL STATUS POSSIBLE BLLE CELLULITIS - admit to tele - patient presenting from [facility] after an unresponsive episode; patient considered poor historian due to underlying dementia; nursing reports blood sugar was 84 at the time of the event - patient's mental status slowly improving - CT head negative, no focal deficits on exam - initial troponin negative, EKG without acute ST changes - will continue to cycle cardiac enzymes - no recent medication changes - CXR clear, U/A does not suggest UTI; however BLLE erythema and warmth noted - ? cellulitis as infectious source to cause exacerbation of dementia symptoms - patient would be at high risk for developing cellulitis due to her chronic venous stasis; noted patient just completed a course of Bactrim for possible UTI , however ? Bactrim resistant MRSA; for now will place patient on Vanco and monitor response; also check MRSA nasal swab; do not suspect sepsis - will hold routine hydrocodone for now - neuro consult for any further recommendations DEMENTIA - continue home meds CHRONIC BLLE EDEMA - continue spironolactone CHRONIC PAIN - holing routine hydrocodone until mental status improves - continue gabapentin and Tylenol GERD - continue PPI DVT PROPHYLAXIS - SQ Lovenox CODE STATUS - Patient is a DNR as per [facility] records. DISPO - The patient will be placed as observation status for now until further work up is complete. - PT/OT, expect d/c back to [facility] once medically stable I have seen and examined the patient and agree with the assessment and plan as stated. DO Larry Level of Care Telemetry Resuscitation Status DO NOT RESUSCITATE VTE Prophylaxis VTE Risk Assessment Done? Y/N: Yes Risk Level: Moderate Given or contraindicated: Enoxaparin (Lovenox)SQ Social Service Consult Lives in Personal Care
[2016-11-15 17:18] VITALS: BP 148/73; PULSE 67; TEMP 36.3; O2SAT 94
[2016-11-15] MEDS ORDERED: VANCOMYCIN INJ 2,000 MG in SODIUM CHLORIDE 0.9% 500ML 500 ML IV ONE (17:30)
[2016-11-15] MEDS ORDERED: VANCOMYCIN CONSULT ACTIVE PRN (17:30)
--- NOTE | 2016-11-15 18:10 | Pharmacy Progress Note ---
Pharmacy Antibiotic Consult Date of Service: Nov 15, 2016. Pharmacy Dosing Scope Pharmacy is consulted to initiate Vancomycin IV dosing therapy, order appropriate labs and adjust drug dose/frequency. Subjective The patient is a 86 year old female admitted on Nov 15, 2016 at 15:52. Objective Height (Feet): 5 Height (Inches): 7.00 Weight (Kilograms): 77.600 Lab Results (24hrs): Laboratory Tests Test 11/15/16 11:10 BUN/Creatinine Ratio 12.8 Blood Urea Nitrogen 13 mg/dl Creatinine 1.00 mg/dl White Blood Count 8.02 K/uL Red Blood Count 3.85 M/uL Hemoglobin 11.3 g/dL Hematocrit 34.7 % Mean Corpuscular Volume 90.1 fL Mean Corpuscular Hemoglobin 29.4 pg Mean Corpuscular Hemoglobin Concent 32.6 g/dl Platelet Count 252 K/uL Mean Platelet Volume 9.5 fL Neutrophils (%) (Auto) 66.2 % Lymphocytes (%) (Auto) 19.7 % Monocytes (%) (Auto) 11.3 % Eosinophils (%) (Auto) 2.1 % Basophils (%) (Auto) 0.6 % Neutrophils # (Auto) 5.30 K/uL Lymphocytes # (Auto) 1.58 K/uL Monocytes # (Auto) 0.91 K/uL Eosinophils # (Auto) 0.17 K/uL Basophils # (Auto) 0.05 K/uL Micro Results: Item Value Date Time Blood Culture Received 11/15/16 1110 Blood Pending Blood Culture Received 11/15/16 1115 Blood Pending Urine Culture Received 11/15/16 1414 Urine,Catheterized Pending Assessment & Plan Assessment Pharmacy will continue to follow and will adjust dose/frequency as necessary. Thank you
[2016-11-15 18:14] VITALS: BP 148/73; PULSE 67; TEMP 36.3; O2SAT 94; Ht 170.2 cm; Wt 89.6 kg
[2016-11-15 19:44] VITALS: BP 135/74; PULSE 70; TEMP 36.7; O2SAT 98
[2016-11-15] MEDS: DICLOFENAC SOD 1% GEL 100 GM TUBE EXT SCH ×2 (20:33→20:36)
[2016-11-15] MEDS: ENOXAPARIN 40 MG/0.4 ML SYR SC SCH (20:34)
[2016-11-15] MEDS: PANTOprazole SOD 40 MG TAB PO SCH (20:34)
[2016-11-15] MEDS: RISPERIDONE 0.5 MG TAB PO SCH (20:34)
[2016-11-15] MEDS: GABAPENTIN 300 MG CAP PO SCH (20:34)
[2016-11-15] MEDS: TRAZODONE HCL 50 MG TAB PO SCH (20:35)
[2016-11-15] MEDS: ACETAMINOPHEN 500 MG TAB PO SCH (20:35)
[2016-11-15] MEDS: POTASSIUM CHLORIDE 10 MEQ TABCR PO SCH (20:35)
--- NOTE | 2016-11-15 21:11 | Pharmacy Progress Note ---
Pharmacy Antibiotic Consult Date of Service: Nov 15, 2016. Pharmacy Dosing Scope Pharmacy is consulted to initiate Vancomycin IV dosing therapy, order appropriate labs and adjust drug dose/frequency. Subjective The patient is a 86 year old female admitted on Nov 15, 2016 at 15:52. Objective Height (Feet): 5 Height (Inches): 7.00 Weight (Kilograms): 77.600 Lab Results (24hrs): Laboratory Tests Test 11/15/16 11:10 BUN/Creatinine Ratio 12.8 Blood Urea Nitrogen 13 mg/dl Creatinine 1.00 mg/dl White Blood Count 8.02 K/uL Red Blood Count 3.85 M/uL Hemoglobin 11.3 g/dL Hematocrit 34.7 % Mean Corpuscular Volume 90.1 fL Mean Corpuscular Hemoglobin 29.4 pg Mean Corpuscular Hemoglobin Concent 32.6 g/dl Platelet Count 252 K/uL Mean Platelet Volume 9.5 fL Neutrophils (%) (Auto) 66.2 % Lymphocytes (%) (Auto) 19.7 % Monocytes (%) (Auto) 11.3 % Eosinophils (%) (Auto) 2.1 % Basophils (%) (Auto) 0.6 % Neutrophils # (Auto) 5.30 K/uL Lymphocytes # (Auto) 1.58 K/uL Monocytes # (Auto) 0.91 K/uL Eosinophils # (Auto) 0.17 K/uL Basophils # (Auto) 0.05 K/uL Micro Results: Item Value Date Time Blood Culture Received 11/15/16 1110 Blood Pending Blood Culture Received 11/15/16 1115 Blood Pending Urine Culture Received 11/15/16 1414 Urine,Catheterized Pending MRSA DNA Surveillance Screen Received 11/15/16 1800 Nasal Pending Assessment & Plan Assessment 86 year old female brought to [facility] ER due to episode of unresponsiveness at snf. Possible b/l LE cellulitis in the setting of chronic venous stasis. Risk factors for resistant organisms: * Resident in a snf or extended-care facility * Hospitalization for 48 hours or more within the past 90 days; admitted to [facility] 10/05-10/10 for AMS. Treated for pneumonia. * Broad spectrum antimicrobial use within the last 90 days; received vanc IV x 1 , Azactam x 48 hours, and levaquin x 6 days during previous admission. Patient was also recently on Bactrim as an outpatient for UTI Plan Vancomycin IV for treatment of cellulitis * Loading dose: 2000 mg (26 mg/kg) * Maintenance dose: 1200 mg IV (15.5 mg/kg) every 18 hours * Goal trough level for cellulitis : 15 to 20 mcg/mL (pending organism ID and sensitivity) * Trough level ordered for 11/18/16 Pharmacy will continue to follow and will adjust dose/frequency as necessary. Thank you
[2016-11-15] MEDS: ACETAMINOPHEN 325 MG TAB PO PRN (23:53)
[2016-11-16] VITALS (12 sets, daily range): BP systolic 122–188; BP diastolic 76–100; PULSE 70–95; TEMP 36.4–36.9; O2SAT 93–96
[2016-11-16 07:16] LABS: HEMATOCRIT 33.5 % (37-47); MEAN CELL VOLUME 90.5 fL (80-100); MEAN CORPUSCULAR HEMOGLOBIN 29.7 pg (25-34); MEAN CORPUSCULAR HGB CONC 32.8 g/dl (32-36); MEAN PLATELET VOLUME 9.6 fL (7.4-10.4); PLATELET COUNT 233 K/uL (130-400); WHITE BLOOD COUNT 6.28 K/uL (4.8-10.8)
[2016-11-16 07:37] LABS: BUN/CREATININE RATIO 20.9 (10-20); CALCIUM 8.6 mg/dl (8.5-10.1); CREATININE 0.97 mg/dl (0.60-1.20); POTASSIUM 4.3 mmol/L (3.5-5.1)
[2016-11-16] MEDS: ACETAMINOPHEN 500 MG TAB PO SCH ×3 (08:40→19:27)
[2016-11-16] MEDS: CHOLECALCIFEROL 1000 INTER.UNIT TAB PO SCH (08:40)
[2016-11-16] MEDS: RISPERIDONE 0.5 MG TAB PO SCH ×3 (08:41→19:26)
[2016-11-16] MEDS: POLYETHYLENE (MIRALAX) 17 GM PACK PO SCH (08:41)
[2016-11-16] MEDS: SERTRALINE HCL 50 MG TAB PO SCH (08:42)
[2016-11-16] MEDS: GABAPENTIN 300 MG CAP PO SCH ×3 (08:42→19:26)
[2016-11-16] MEDS: DICLOFENAC SOD 1% GEL 100 GM TUBE EXT SCH ×4 (08:43→19:26)
[2016-11-16] MEDS ORDERED: SPIRONOLACTONE 25 MG TAB PO SCH (09:00)
[2016-11-16] MEDS: VANCOMYCIN INJ 1,200 MG in SODIUM CHLORIDE 0.9% 250ML 250 ML IV SCH (11:20)
--- NOTE | 2016-11-16 12:46 | NEUROLOGY CONSULTATION ---
DATE OF CONSULTATION: 11/16/2016 DATE OF CONSULTATION: 11/16/2016. REQUESTED BY: Dr. Lindsay. HISTORY OF PRESENT ILLNESS: Megan is 86 years old, is a resident at [facility], has advanced dementia and was admitted yesterday for evaluation of an episode of lethargy and then unresponsiveness without any overt seizure activity occurring shortly after breakfast. She was found to have a blood sugar of 84. At that time to reverse this mild "hypoglycemia" did not increase her level of awareness and she was brought to the hospital after which she began to come around. She was on Bactrim from the prior week for possible urinary tract infection but culture had never been obtained. No fever or chills had been reported. There must have been some foul smelling urine or some other indicator for empiric treatment, but now on a admission there is a question of a cellulitis developing both lower extremities and she has been placed on antibiotics. Other problems include asthma, atrial fibrillation, diverticulosis, history of DVT, hypertension, pulmonary emboli, small-bowel obstruction and she has had an appendectomy, hemicolectomy and a tonsillectomy. There is apparently a history of bilateral knee replacements as well. 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 Unfortunately, the dementia really precludes any meaningful obtaining of history. Her status has gotten to the point that she is wheelchair bound, but occasionally walk with a walker and apparently is verbal, but in a very limited sense. FAMILY HISTORY: Not contributory. SOCIAL HISTORY: Reveals her obvious to be a nonsmoker, nonconsumer of ethanol, resident of [facility] for probably several years now. ALLERGIES: SHE HAS ALLERGIES TO PENICILLINS, SERTRALINE, AND SULFA, although it is not clear how these are manifested. MEDICATIONS: She currently takes Tylenol as needed, cholecalciferol, topical Voltaren, gabapentin 300 mg every 8 hours, hydrocodone as needed, pantoprazole, polyethylene glycol, potassium chloride, Risperdal, sertraline, spirolactone, and trazodone. SYSTEMS REVIEW: Was totally unobtainable from the patient. The chart review suggests that the nursing staff at [facility] has not noted any particular systemic illnesses other than some evidence that was consistent with urinary tract infection, otherwise there is apparently no new cardiovascular, pulmonary, gastrointestinal or musculoskeletal issues and the cellulitis apparently is a recent issue. PHYSICAL EXAMINATION: VITAL SIGNS: On examination last night, she had a temperature of 36.6, blood pressure 150/83, pulse was 68, respirations were 18. GENERAL: She was awake, alert, but was unable to really cooperate with the examiner in terms of obtaining history. She did not appear in any acute distress. She was over nourished. There were no obvious cranial deformities or extraocular movement issues. LUNGS: Clear. HEART: Had a regular rhythm. ABDOMEN: Bowel sounds were normal. EXTREMITIES: There was peripheral edema and some erythema and warmth to the touch over the anterior shins bilaterally, a little more prominent on the right. NEUROLOGICAL EXAMINATION: Today neurologically she really is unable to do anything except moan and occasionally respond to any question with the word no or I do not know how. Eye movements seem to be intact and equal grimacing to facial noxious stimulation. She will move all extremities and squeeze my hands, but does so somewhat reluctantly. Reflexes are unobtainable because of poor relaxation. Toes are downgoing. Manish's signs are clearly present. Strength testing is very limited due to her limited cooperation. Sensory examination is unreliable. At this point, I did order an EEG but I do not see any urgency here. I suspect this may indeed be toxic encephalopathy, perhaps related to the cellulitis. Individuals with advanced dementia often have periods of unexplained unresponsiveness whether or not these are seizures is another issue. Certainly if the EEG shows a lot of significant abnormalities, we may empirically put her on some anticonvulsants, but at this point the evidence is thin at best but this was a seizure Seroquel. I will keep checking on her on a daily basis and will probably get the EEG on Friday. FRANK
--- NOTE | 2016-11-16 17:11 | Progress Note ---
Internal Med Progress Note Date of Service: Nov 16, 2016. Provider Documentation: SUBJECTIVE: alert and awake and oriented x 1 denies any pain denies nausea eating ok afebrile want to go home OBJECTIVE: Vital Signs-as noted below Exam: General-alert and awake and oriented x 1 ENT-normal hearing Neck-no neck masses Lungs-cta b/l no wheezing or crackles Heart-s1 and s2 heard irregular rate and rhythm no murmurs Abdomen-soft bowel sounds present non tender no distension Extremities- no erythema no edema Neuro-alert and awake moves extremities Lab data as noted below. ASSESSMENT & PLAN: ALTERED MENTAL STATUS POSSIBLE BLLE CELLULITIS CT had negative on iv vancomycin seems im proving Seen by neurology and appreciate inputs plan for eeg on Friday DEMENTIA on home meds CHRONIC BLLE EDEMA on spironolactone CHRONIC PAIN holding routine hydrocodone until mental status improves on gabapentin and Tylenol GERD on PPI DVT PROPHYLAXIS SQ Lovenox DISPOSITION to be determined social service for d/c planning Vital Signs: Date Time Temp Pulse Resp B/P Pulse Ox O2 Delivery O2 Flow Rate FiO2 11/16/16 14:51 36.5 73 20 183/93 96 11/16/16 12:00 95 Room Air 11/16/16 11:40 73 96 11/16/16 11:15 36.4 75 20 151/78 94 Room Air 11/16/16 08:00 95 Room Air 11/16/16 07:40 36.9 86 20 166/81 95 11/16/16 04:00 93 Room Air 11/16/16 00:34 36.5 95 20 122/76 93 Room Air 11/16/16 00:00 93 Room Air 11/15/16 20:00 Room Air 11/15/16 19:44 36.7 70 20 135/74 98 Room Air 11/15/16 18:14 36.3 67 18 148/73 94 Room Air 11/15/16 17:18 36.3 67 18 148/73 94 Room Air Lab Results: Results Past 24 Hours Test 11/15/16 17:00 11/15/16 17:05 11/15/16 23:00 11/15/16 23:14 Range/Units Creatine Kinase MB Ratio 0-3.0 Creatine Kinase MB 2.4 2.1 0.5-3.6 ng/ml Troponin I < 0.015 < 0.015 0-0.045 ng/ml Test 11/16/16 06:44 11/16/16 16:23 Range/Units White Blood Count 6.28 4.8-10.8 K/uL Red Blood Count 3.70 4.2-5.4 M/uL Hemoglobin 11.0 12.0-16.0 g/dL Hematocrit 33.5 37-47 % Mean Corpuscular Volume 90.5 80-100 fL Mean Corpuscular Hemoglobin 29.7 25-34 pg Mean Corpuscular Hemoglobin Concent 32.8 32-36 g/dl RDW Standard Deviation 47.4 36.4-46.3 fL RDW Coefficient of Variation 14.3 11.5-14.5 % Platelet Count 233 130-400 K/uL Mean Platelet Volume 9.6 7.4-10.4 fL Sodium Level 143 136-145 mmol/L Potassium Level 4.3 3.5-5.1 mmol/L Chloride Level 111 98-107 mmol/L Carbon Dioxide Level 26 21-32 mmol/L Anion Gap 6.0 3-11 mmol/L Blood Urea Nitrogen 20 7-18 mg/dl Creatinine 0.97 0.60-1.20 mg/dl Est Creatinine Clear Calc Drug Dose 50.0 ml/min Estimated GFR () 62.2 Estimated GFR (Non- 53.6 BUN/Creatinine Ratio 20.9 10-20 Random Glucose 93 70-99 mg/dl Calcium Level 8.6 8.5-10.1 mg/dl Bedside Glucose 97 70-90 mg/dl Microbiology Results 11/15/16 MRSA DNA Surveillance Screen - Final, Complete Specimen Negative for MRSA by DNA Probe
[2016-11-16] MEDS: ACETAMINOPHEN 325 MG TAB PO PRN (18:27)
[2016-11-16] MEDS: POTASSIUM CHLORIDE 10 MEQ TABCR PO SCH (19:26)
[2016-11-16] MEDS: PANTOprazole SOD 40 MG TAB PO SCH (19:26)
[2016-11-16] MEDS: TRAZODONE HCL 50 MG TAB PO SCH (19:26)
[2016-11-16] MEDS: ENOXAPARIN 40 MG/0.4 ML SYR SC SCH (19:27)
[2016-11-17] VITALS (8 sets, daily range): BP systolic 149–182; BP diastolic 76–85; PULSE 67–81; TEMP 36.4–36.8; O2SAT 92–98
[2016-11-17] MEDS: VANCOMYCIN INJ 1,200 MG in SODIUM CHLORIDE 0.9% 250ML 250 ML IV SCH ×2 (03:20→18:36)
[2016-11-17 05:50] LABS: CREATININE 0.84 mg/dl (0.60-1.20)
[2016-11-17] MEDS: RISPERIDONE 0.5 MG TAB PO SCH ×3 (07:38→20:45)
[2016-11-17] MEDS: ACETAMINOPHEN 325 MG TAB PO PRN (07:40)
[2016-11-17] MEDS: POLYETHYLENE (MIRALAX) 17 GM PACK PO SCH (08:04)
[2016-11-17] MEDS: CHOLECALCIFEROL 1000 INTER.UNIT TAB PO SCH (08:06)
[2016-11-17] MEDS: GABAPENTIN 300 MG CAP PO SCH ×3 (08:06→20:46)
[2016-11-17] MEDS: ACETAMINOPHEN 500 MG TAB PO SCH ×3 (08:07→20:46)
[2016-11-17] MEDS: DICLOFENAC SOD 1% GEL 100 GM TUBE EXT SCH ×4 (08:08→20:45)
[2016-11-17] MEDS: SERTRALINE HCL 50 MG TAB PO SCH (08:12)
--- NOTE | 2016-11-17 12:50 | PROGRESS NOTE ---
DATE: 11/17/2016 Megan looks a little better this morning. She will try to converse, although the content of her conversation is pretty disorganized. She perseverates a little but no seizure activity has been reported by the nursing staff and she today has kept her IVs in rather than pulling them out. In addition to her dementia, her exam really does not show much other than perhaps a little peripheral neuropathy, but this again very hard to evaluate in light of her mental status and limited cooperation. She does have areas of possible cellulitis bilaterally in her lower extremities and her urine culture I believe is still pending, although she just received treatment for urinary tract infection. Cause for her prolonged unresponsiveness may never be determined. We will wait for an EEG tomorrow, but frankly I do not think this was a seizure and it could have been a manifestation of a toxic encephalopathy. For now, however, we certainly are not going to offer any further neurological evaluation unless of course EEG is markedly abnormal consistent with seizure activity in which case we will probably put her on some Keppra. I will check back with her tomorrow.
--- NOTE | 2016-11-17 15:08 | Progress Note ---
Internal Med Progress Note Date of Service: Nov 17, 2016. Provider Documentation: SUBJECTIVE: alert and awake and oriented x 1 eating ok as per nursing staff moved bowels denies any pain afebrile OBJECTIVE: Vital Signs-as noted below Exam: General-alert and awake and oriented x 1 ENT-normal hearing Neck-no neck masses Lungs-cta b/l no wheezing or crackles Heart-s1 and s2 heard irregular rate and rhythm no murmurs Abdomen-soft bowel sounds present non tender no distension Extremities- Lower extremity erythema improving. Neuro-alert and awake moves extremities Lab data as noted below. ASSESSMENT & PLAN: ALTERED MENTAL STATUS POSSIBLE BLLE CELLULITIS CT had negative on iv vancomycin improving Seen by neurology and appreciate inputs plan for eeg on Friday DEMENTIA on home meds CHRONIC BLLE EDEMA on spironolactone CHRONIC PAIN holding routine hydrocodone until mental status improves on gabapentin and Tylenol will restart Vicodin bid and monitor GERD on PPI DVT PROPHYLAXIS SQ Lovenox DISPOSITION possible d/c in 1-2 days social service for d/c planning Vital Signs: Date Time Temp Pulse Resp B/P Pulse Ox O2 Delivery O2 Flow Rate FiO2 11/17/16 12:00 Room Air 11/17/16 11:09 36.6 81 18 158/81 96 Room Air 11/17/16 08:00 95 Room Air 11/17/16 07:28 36.4 72 18 149/76 98 Room Air 11/17/16 04:09 36.4 67 18 175/85 92 Room Air 11/17/16 04:00 Room Air 11/17/16 00:06 Room Air 11/16/16 23:16 36.4 76 20 188/83 93 Room Air 11/16/16 20:06 Room Air 11/16/16 19:06 36.5 70 20 185/100 94 Room Air 11/16/16 16:00 95 Room Air Lab Results: Results Past 24 Hours Test 11/16/16 16:23 11/16/16 20:10 11/17/16 05:21 11/17/16 07:52 Range/Units Bedside Glucose 97 98 99 70-90 mg/dl Creatinine 0.84 0.60-1.20 mg/dl Est Creatinine Clear Calc Drug Dose 57.7 ml/min Estimated GFR () 74.0 Estimated GFR (Non- 63.8
[2016-11-17] MEDS: HYDROCODONE/ACETAMOPHEN 5/325MG TAB PO SCH (20:45)
[2016-11-17] MEDS: PANTOprazole SOD 40 MG TAB PO SCH (20:46)
[2016-11-17] MEDS: TRAZODONE HCL 50 MG TAB PO SCH (20:46)
[2016-11-17] MEDS: POTASSIUM CHLORIDE 10 MEQ TABCR PO SCH (20:46)
[2016-11-17] MEDS: ENOXAPARIN 40 MG/0.4 ML SYR SC SCH (20:47)
[2016-11-18] VITALS (7 sets, daily range): BP systolic 146–178; BP diastolic 74–85; PULSE 71–79; TEMP 36.1–36.2; O2SAT 94–98
[2016-11-18 07:18] LABS: HEMATOCRIT 36.4 % (37-47); MEAN CELL VOLUME 90.5 fL (80-100); MEAN CORPUSCULAR HEMOGLOBIN 29.6 pg (25-34); MEAN CORPUSCULAR HGB CONC 32.7 g/dl (32-36); MEAN PLATELET VOLUME 9.7 fL (7.4-10.4); PLATELET COUNT 240 K/uL (130-400); RED BLOOD COUNT 4.02 M/uL (4.2-5.4); WHITE BLOOD COUNT 5.72 K/uL (4.8-10.8)
[2016-11-18 07:39] LABS: CREATININE 0.86 mg/dl (0.60-1.20)
[2016-11-18] MEDS: CHOLECALCIFEROL 1000 INTER.UNIT TAB PO SCH (08:22)
[2016-11-18] MEDS: ACETAMINOPHEN 500 MG TAB PO SCH ×2 (08:23→12:11)
[2016-11-18] MEDS: SERTRALINE HCL 50 MG TAB PO SCH (08:23)
[2016-11-18] MEDS: GABAPENTIN 300 MG CAP PO SCH ×2 (08:24→12:10)
[2016-11-18] MEDS: DICLOFENAC SOD 1% GEL 100 GM TUBE EXT SCH ×2 (08:24→12:10)
[2016-11-18] MEDS: RISPERIDONE 0.5 MG TAB PO SCH ×2 (08:25→12:10)
[2016-11-18] MEDS: POLYETHYLENE (MIRALAX) 17 GM PACK PO SCH (08:25)
[2016-11-18] MEDS: HYDROCODONE/ACETAMOPHEN 5/325MG TAB PO SCH (08:26)
[2016-11-18] MEDS ORDERED: VANCOMYCIN TROUGH SCH ×2 (09:30→15:30)
[2016-11-18] MEDS: VANCOMYCIN INJ 1,200 MG in SODIUM CHLORIDE 0.9% 250ML 250 ML IV SCH (11:07)
--- NOTE | 2016-11-18 13:19 | Pharmacy Progress Note ---
Pharmacy Antibiotic Prog Note Date of Service Nov 18, 2016. Subjective The patient is currently receiving vancomycin 1200 mg IV every 16 hours. The patient is currently on day # 4 of vancomycin IV therapy. Objective Height (Feet): 5 Height (Inches): 7.00 Weight (Kilograms): 89.600 Levels: Item Value Date Time Vancomycin Level Trough 16.6 mcg/ml 11/18/16 0925 Previous dose hung 11/17/16 @1836. Lab Results (24hrs): Laboratory Tests Test 11/18/16 06:55 Creatinine 0.86 mg/dl White Blood Count 5.72 K/uL Micro Results: 11/15 urine NG 11/15 Blood x2 NGTD 11/15 nasal swab neg MRSA Recent Pertinent Medications Item Value Date Time Vancomycin HCl 274 ml @ 125 mls/hr 11/17/16 1800 1200 mg/Sodium Q16H/IV 11/18/16 1107 Chloride Vancomycin HCl 274 ml @ 125 mls/hr 11/16/16 1000 1200 mg/Sodium Q18H/IV 11/17/16 0320 Chloride Assessment & Plan This drug level is: Therapeutic. Continue vancomycin 1200 mg IV every 16 hours. Goal trough level estimate: between 15-20 mcg/mL. Will recheck trough in a few days if stable. Pharmacy will continue to follow and will adjust dose/frequency as necessary. Thank you
[2016-11-18] MEDS ORDERED: LEVO1TAB34 PO (13:48)
[2016-11-18] MEDS ORDERED: LCTX PO (13:48)
[2016-11-18] MEDS ORDERED: DOXY100C41 PO (13:48)
--- NOTE | 2016-11-18 13:50 | Discharge Instructions ---
Discharge Instructions Date of Service Nov 18, 2016. Admission Reason for Admission: Altered Mental Status Discharge Discharge Diagnosis / Problem: AMS, cellulitis Discharge Goals Goal(s): Decrease discomfort Activity Recommendations Activity Level: Assistance Required Therapies: Physical Therapy, Occupational Therapy . Additional Information Patient informed of condition: Yes (dementia) Advance Directives: Yes DNR: Yes Level of Care: Skilled Communicable Disease: No Prognosis: Stable Lloyd Catheter: No Instructions / Follow-Up Instructions / Follow-Up FOLLOWUP WITH FAMILY DOCTOR IN ONE WEEK Current Hospital Diet Patient's current hospital diet: AHA Diet (Heart Healthy) Discharge Diet Recommended Diet: AHA Diet (Heart Healthy) Diet Texture: Mechanical Soft (ground) Pending Studies Studies pending at discharge: no Physician Orders On Transfer Special Precautions: FALL AND ASPIRATION PRECAUTIONS Vital Signs: EVERY 8HRS Medical Emergencies . Who to Call and When: Medical Emergencies: If at any time you feel your situation is an emergency, please call 911 immediately. . Non-Emergent Contact Non-Emergency issues call your: Primary Care Provider . . "Provider Documentation" section prepared by Chava Lindsay. Core Measure Problem Core Measures: None
--- NOTE | 2016-11-18 15:34 | Progress Note ---
Internal Med Progress Note Date of Service: Nov 18, 2016. Provider Documentation: SUBJECTIVE: alert and awake and oriented x 1 resting comfortably denies any pain ok for discharge OBJECTIVE: Vital Signs-as noted below Exam: General-alert and awake and oriented x 1 ENT-normal hearing Neck-no neck masses Lungs-cta b/l no wheezing or crackles Heart-s1 and s2 heard irregular rate and rhythm no murmurs Abdomen-soft bowel sounds present non tender no distension Extremities- Lower extremity erythema improving. Neuro-alert and awake moves extremities Lab data as noted below. ASSESSMENT & PLAN: ALTERED MENTAL STATUS POSSIBLE BLLE CELLULITIS CT had negative on iv vancomycin improving Seen by neurology and appreciate inputs stable discharging on po doxy and Levaquin f/u with pcp. DEMENTIA on home meds CHRONIC BLLE EDEMA on spironolactone CHRONIC PAIN holding routine hydrocodone until mental status improves on gabapentin and Tylenol retarted home meds f/u with pcp GERD on PPI Discharged home Vital Signs: Date Time Temp Pulse Resp B/P Pulse Ox O2 Delivery O2 Flow Rate FiO2 11/18/16 14:27 36.2 71 18 94 Room Air 11/18/16 12:00 94 Room Air 11/18/16 11:09 36.2 71 18 146/85 98 Room Air 11/18/16 08:00 94 Room Air 11/18/16 07:00 36.1 79 18 178/74 94 Room Air 11/18/16 04:00 95 Room Air 11/18/16 00:00 95 Room Air 11/17/16 23:05 36.6 70 18 155/79 96 Room Air 11/17/16 19:50 36.6 75 20 182/82 97 Room Air 11/17/16 19:47 Room Air 11/17/16 16:00 95 Room Air 11/17/16 15:51 36.8 78 18 152/76 96 Room Air Lab Results: Results Past 24 Hours Test 11/18/16 06:55 11/18/16 09:25 Range/Units White Blood Count 5.72 4.8-10.8 K/uL Red Blood Count 4.02 4.2-5.4 M/uL Hemoglobin 11.9 12.0-16.0 g/dL Hematocrit 36.4 37-47 % Mean Corpuscular Volume 90.5 80-100 fL Mean Corpuscular Hemoglobin 29.6 25-34 pg Mean Corpuscular Hemoglobin Concent 32.7 32-36 g/dl RDW Standard Deviation 47.0 36.4-46.3 fL RDW Coefficient of Variation 14.3 11.5-14.5 % Platelet Count 240 130-400 K/uL Mean Platelet Volume 9.7 7.4-10.4 fL Creatinine 0.86 0.60-1.20 mg/dl Est Creatinine Clear Calc Drug Dose 56.0 ml/min Estimated GFR () 71.9 Estimated GFR (Non- 62.0 Vancomycin Level Trough 16.6 SEE COMMENT mcg/ml
--- NOTE | 2016-11-18 16:17 | Discharge Summary ---
Discharge Summary Date of Service Nov 18, 2016. Discharge Summary Admission Date: Nov 15, 2016 at 15:52 Discharge Date: Nov 18, 2016 [facility] Principal Diagnosis: LOWER EXTREMITY CELLULITIS AMS Secondary Diagnoses/Problems: (1) Asthma Status: Chronic (2) Atrial Fibrillation Status: Chronic (3) Dementia Status: Chronic (4) Diverticulosis Colon (W/O Ment Of Hemorrhage) Status: Chronic (5) DVT (deep venous thrombosis) Permanent Comment: completed Xarelto therapy Status: Chronic (6) Hypertension Nos Status: Chronic (7) PE (pulmonary embolism) Permanent Comment: completed Xarelto therapy Status: Chronic (8) SBO (small bowel obstruction) Permanent Comment: s/p surgical release, lysis of adhesions Status: Chronic Procedures: CT HEAD: No acute intracranial abnormality. Age-related and chronic small vessel change CXR: Mild stable cardiomegaly. Lungs are clear at this time. Consultations: NEUROLOGY Medication Reconciliation New Medications: Doxycycline (Monohydrate) (Monodox) 100 Mg Cap 100 MG PO BID for 6 Days, #12 CAP Lactobacillus Acidophilus (Lactinex) Tab 2 TAB PO BID for 10 Days, TAB Levofloxacin (Levaquin) 500 Mg Tab 1 TAB PO DAILY for 7 Days, #6 TAB Continued Medications: Acetaminophen (Tylenol) 500 Mg Tab 500 MG PO TID Cholecalciferol (Vitamin D3) 2,000 Unit Cap 1 CAP PO DAILY for 30 Days, #30 CAP 3 Refills Diclofenac Sodium (Topical) (Voltaren 1% Top Gel) 1 % Gel 1 APPLN TOP QID Gabapentin (Neurontin) 300 Mg Cap 300 MG PO Q8 Hydrocodone/Acetaminophen 5MG/325MG ([place] 5MG/325MG) Tab 0.5 TABLET PO TID PRN PAIN Pantoprazole (Protonix) 40 Mg Tab 40 MG PO HS Polyethylene Glycol 3350 (Bulk (Polyethylene Glycol 3350) 1 Pow Pow 17 GM PO DAILY, #255 GM Potassium Chloride (Micro-K Ext Rel) 10 Meq Capcr 10 MEQ PO QPM Risperidone (Risperdal) 0.5 Mg Tab 0.5 MG PO HS, TAB Risperidone (Risperdal) 0.25 Mg Tab 0.25 MG PO BID Sertraline (Zoloft) 50 Mg Tab 75 MG PO DAILY, TAB Spironolactone (Aldactone) 25 Mg Tab 25 MG PO 2XWK, 0 Refills TAKE ON TUESDAYS AND SATURDAYS Trazodone Hcl (Trazodone) 50 Mg Tab 50 MG PO HS for Anxiety, TAB Admission Information HPI (per Admitting provider): 86 year old female who presents to the ER from [facility] after an episode of unresponsiveness. History is not reliable from patient. Per the [facility]pc staff, patient's mental status started to change while she was eating breakfast. They report that she started to become lethargic, which she does at times. Initially she was responding to verbal stimuli however progressed to being unresponsive. She never stopped breath. Blood sugar was checked and was 84. The nurse placed glucose gel on her gums. EMS was called and patient's mental status did not improve by the time they arrived. Nursing reports that patient will have episodes of lethargy occasionally however will usually respond to verbal stimuli. She has underlying dementia and is confused however can hold a conversation. They report that she is mostly wheelchair bound and will walk with a walker on occasion. She was empirically placed on Bactrim last week and completed the course on 11/12 for possible UTI. Culture was not obtained. Nursing denies any fever and chills. No other reportable symptoms. In the ER, patient's mental status has slowly improved. Labs are unremarkable. Vitals are stable. CXR is clear and CT head is negative. Physical Exam (per Admitting): General Appearance: no apparent distress Head: normocephalic Eyes: normal inspection ENT: hearing grossly normal Neck: supple, no JVD Respiratory/Chest: lungs clear, normal breath sounds, no respiratory distress Cardiovascular: regular rate, rhythm, normal peripheral pulses, + pertinent finding (+2 edema BLLE) Abdomen/GI: normal bowel sounds, non tender, soft Extremities/Musculoskelatal: normal inspection, no calf tenderness Neurologic/Psych: + disoriented (to place, time, and situation), + pertinent finding (generalized weakness noted; no focal deficits) Skin: + pertinent finding (erythema noted to BL shins, warm to touch; no open areas noted) Physical Exam (per Admitting): General Appearance: no apparent distress Head: normocephalic Eyes: normal inspection ENT: hearing grossly normal Neck: supple, no JVD Respiratory/Chest: lungs clear, normal breath sounds, no respiratory distress Cardiovascular: regular rate, rhythm, normal peripheral pulses, + pertinent finding (+2 edema BLLE) Abdomen/GI: normal bowel sounds, non tender, soft Extremities/Musculoskelatal: normal inspection, no calf tenderness Neurologic/Psych: + disoriented (to place, time, and situation), + pertinent finding (generalized weakness noted; no focal deficits) Skin: + pertinent finding (erythema noted to BL shins, warm to touch; no open areas noted) Hospital Course ALTERED MENTAL STATUS POSSIBLE BLLE CELLULITIS CT had negative on iv vancomycin improving Seen by neurology and appreciate inputs stable discharging on po doxy and Levaquin f/u with pcp. DEMENTIA on home meds CHRONIC BLLE EDEMA on spironolactone CHRONIC PAIN holding routine hydrocodone until mental status improves on gabapentin and Tylenol retarted home meds f/u with pcp GERD on PPI Discharged home Total time spent on discharge = 40MINUTES This includes examination of the patient, discharge planning, medication reconciliation, and communication with other providers. Discharge Instructions Please take this sheet to every appointment for the next month Discharge Instructions Date of Service Nov 18, 2016. Admission Reason for Admission: Altered Mental Status Discharge Discharge Diagnosis / Problem: AMS, cellulitis Discharge Goals Goal(s): Decrease discomfort Activity Recommendations Activity Level: Assistance Required Therapies: Physical Therapy, Occupational Therapy . Additional Information Patient informed of condition: Yes (dementia) Advance Directives: Yes DNR: Yes Level of Care: Skilled Communicable Disease: No Prognosis: Stable Lloyd Catheter: No Instructions / Follow-Up Instructions / Follow-Up FOLLOWUP WITH FAMILY DOCTOR IN ONE WEEK Current Hospital Diet Patient's current hospital diet: AHA Diet (Heart Healthy) Discharge Diet Recommended Diet: AHA Diet (Heart Healthy) Diet Texture: Mechanical Soft (ground) Pending Studies Studies pending at discharge: no Physician Orders On Transfer Special Precautions: FALL AND ASPIRATION PRECAUTIONS Vital Signs: EVERY 8HRS Medical Emergencies . Who to Call and When: Medical Emergencies: If at any time you feel your situation is an emergency, please call 911 immediately. . Non-Emergent Contact Non-Emergency issues call your: Primary Care Provider . . "Provider Documentation" section prepared by Chava Lindsay. Core Measure Problem Core Measures: None
[2017-01-14] MEDS ORDERED: ACET-1256 PO ×2 (01:11→01:31)
[2017-01-14] MEDS ORDERED: ESCI10TA17 PO (01:24)
[2017-01-14] MEDS ORDERED: SPIR25TA PO (03:36)
[2017-01-14] MEDS ORDERED: PANT40TA PO (03:36)
[2017-01-14] MEDS ORDERED: GABA-1218 PO (06:07)
[2017-01-14] MEDS ORDERED: POLY1POW2 PO (09:47)
[2017-01-14] MEDS ORDERED: POTA10CA28 PO (10:57)
[2017-01-14] MEDS ORDERED: RISP0.258 PO (11:00)
[2017-01-14] MEDS ORDERED: TRAZ50TA35 PO (13:16)
[2017-01-14] MEDS ORDERED: CHOL2000 PO (15:46)
[2017-03-20] MEDS ORDERED: METO50TA16 PO (13:51)
[2017-03-20] MEDS ORDERED: TRAM-10 PO (13:51)
[2017-03-20] MEDS ORDERED: DLCSR120 PO (13:51)
[2017-03-20] MEDS ORDERED: CMD5 PO (13:51)
[2017-03-23] MEDS ORDERED: TRAZ50TA35 PO (12:16)
[2017-03-23] MEDS ORDERED: CMD3 PO (12:16)
[2017-03-23] MEDS ORDERED: DLCSR120 PO (12:16)
[2017-03-23] MEDS ORDERED: CEFD1CAP14 PO (12:16)
== END 2016-11-18 15:26 | disposition home or self-care (01) ==
LOC: ENRESERVTM → ENRESERVDT → EDBD 10:16 → C.EDB 10:17 → C.MED 15:52
PROVIDERS: ADMIT Hospitalist; ATTEND Internal Medicine
DX: R41.82 Altered mental status, unspecified (principal); L03.115 Cellulitis of right lower limb; L03.116 Cellulitis of left lower limb; J45.909 Unspecified asthma, uncomplicated; I48.91 Unspecified atrial fibrillation; F03.90 Unspecified dementia, unspecified severity, without behavioral disturbance, psychotic disturbance, mood disturbance, and anxiety; I10 Essential (primary) hypertension; Z90.89 Acquired absence of other organs; Z86.718 Personal history of other venous thrombosis and embolism; Z98.890 Other specified postprocedural states; Z86.711 Personal history of pulmonary embolism; Z96.653 Presence of artificial knee joint, bilateral; Z79.899 Other long term (current) drug therapy; Z79.01 Long term (current) use of anticoagulants; Z88.0 Allergy status to penicillin; Z88.2 Allergy status to sulfonamides; Z82.49 Family history of ischemic heart disease and other diseases of the circulatory system; Z81.8 Family history of other mental and behavioral disorders

== ENCOUNTER 2016-11-19 05:58 | Emergency (ER) | payer OTHER ==
[~2016-11-19] VITALS: Ht 175.3 cm; Wt 90.7 kg
[~2016-11-19 05:58] MED LIST changes: +DICL1GEL12 TOP; +DOXY100C41 PO; +HYDR-5688 PO; -IPRA1AER2 INH; +LCTX PO; +LEVO1TAB34 PO; -LVQ500 PO; -MAGNSUS73 PO; -MULT-506 PO; -ONDA4TAB46 PO; -RISP0.258 PO; -SENN-91 PO; -TRAM-10 PO; -[UNRECOGNIZED DRUG - CODE] PO; -[UNRECOGNIZED DRUG - CODE] PO
[2016-11-19 06:01] VITALS: TEMP 36.5; Ht 175.3 cm; Wt 90.7 kg
--- NOTE | 2016-11-19 06:36 | EMERGENCY ROOM VISIT NOTE ---
History Report prepared by Chilo: Ying Rosenthal Under the Supervision of: Dr. Calvin Grimes M.D. First contact with patient: 06:29 Chief Complaint: FALL Stated Complaint: FALL History of Present Illness The patient is a 86 year old female who presents to the Emergency Room via ambulance from [facility] to be evaluated status post a fall this morning. Per nursing staff, the patient's fall was from ground level. She did hit her head and has an abrasion to her right pentecostalism area. She currently complains of some head pain. She has an abrasion to her right knee, which is reportedly old. The patient has no other specific complaints. Per medical records, she is not on a blood thinner. The patient was hospitalized on November 15 for altered mental status. She was discharged to [facility] yesterday. History is limited secondary to dementia. Source of History: patient History Limited By: dementia Onset: this morning Position: other (global) Quality: other (fall) Timing: other (episode) Associated Symptoms: + headache Review of Systems Limited secondary to dementia. 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 Nurse's notes were reviewed and I agree with. Family History Dementia MOTHER Heart disease FATHER Social History Smoking Status: Unknown if Ever Smoked Alcohol Use: none Housing Status: long-term Current/Historical Medications Scheduled Acetaminophen (Tylenol), 500 MG PO TID Cholecalciferol (Vitamin D3), 1 CAP PO DAILY Diclofenac Sodium (Topical) (Voltaren 1% Top Gel), 1 APPLN TOP QID Doxycycline (Monohydrate) (Monodox), 100 MG PO BID Gabapentin (Neurontin), 300 MG PO Q8 Hydrocodone/Acetaminophen 5MG/325MG ([place] 5MG/325MG), 0.5 TABLET PO TID Lactobacillus Acidophilus (Lactinex), 2 TAB PO BID Levofloxacin (Levaquin), 1 TAB PO DAILY Pantoprazole (Protonix), 40 MG PO HS Polyethylene Glycol 3350 (Bulk (Polyethylene Glycol 3350), 17 GM PO DAILY Potassium Chloride (Micro-K Ext Rel), 10 MEQ PO QPM Risperidone (Risperdal), 0.5 MG PO HS Risperidone (Risperdal), 0.25 MG PO BID Sertraline (Zoloft), 75 MG PO DAILY Spironolactone (Aldactone), 25 MG PO 2XWK Trazodone Hcl (Trazodone), 50 MG PO HS Allergies Coded Allergies: Penicillins (Verified Allergy, Mild, 11/19/16) Sertraline (Unverified Allergy, Unknown, UNKNOWN, 11/19/16) Sulfa Drugs (Verified Allergy, Unknown, 11/19/16) Uncoded Allergies: human albumin (Adverse Reaction, Unknown, unknown, 01/04/16) Physical Exam Vital Signs Date Time Temp Pulse Resp B/P Pulse Ox O2 Delivery O2 Flow Rate FiO2 11/19/16 12:36 80 20 159/86 95 11/19/16 11:58 86 18 138/76 99 Room Air 11/19/16 10:18 71 18 155/68 100 Room Air 11/19/16 08:04 63 20 144/89 99 Room Air 11/19/16 06:01 36.5 65 20 133/61 97 Room Air Physical Exam General: Chronically ill appearing older female, baseline dementia but answers questions appropriately, breathing comfortably on room air. Normal speech HEENT: Normal cephalic, contusion right forehead. Pupils are equal round and reactive to light. Extraocular movements are intact. Oropharynx is pink with moist mucous membranes. No swelling of the mouth lips or tongue. Neck: Supple with a midline trachea. No meningeal signs or stiffness, no JVD or bruits. No Stridor. Chest: Clear to auscultation bilaterally. No wheezes or rhonchi. No increased work of breathing. Heart: regular rate and rhythm. Abdomen: Soft nontender, nondistended without rebound guarding or rigidity. Extremities: No cyanosis clubbing or edema. No calf tenderness or assymetry. Contusion on right knee. Spine/Back. Non tender to palpation. No CVA tenderness Skin: Good turgor without rashes. Neurologic exam: Cranial nerves two through 12 are intact. Motor and sensation are intact and symmetrical throughout. GCS 14. Medical Decision & Procedures ER Provider Diagnostic Interpretation: Radiology results as stated below per my review and radiologist interpretation: RIGHT KNEE 1 OR 2 VIEWS ROUTINE CLINICAL HISTORY: eval for trauma Right trauma. Pain. COMPARISON: None. DISCUSSION: The bones and joint spaces appear intact. There is no evidence of fracture, dislocation or bony disease. Evidence for a total right knee arthroplasty. IMPRESSION: Negative study. Electronically signed by: Keegan Sharma M.D. 11/19/2016 7:24 AM Dictated Date/Time: 11/19/2016 7:23 AM CHEST ONE VIEW PORTABLE CLINICAL HISTORY: CHEST PAIN dyspnea COMPARISON STUDY: 11/15/2016 FINDINGS: The bones soft tissues and hemidiaphragms are normal. The cardiomediastinal silhouette is normal. The lungs are clear. The pulmonary vasculature is normal. IMPRESSION: Negative chest. Electronically signed by: Keegan Sharma M.D. 11/19/2016 7:26 AM Dictated Date/Time: 11/19/2016 7:[address]AST CT DOSE: 614.27 mGy.cm HISTORY: Fall. Head injury. TECHNIQUE: Multiaxial CT images of the head were performed without the use of intravenous contrast. Automated exposure control was utilized for this study. Comparison: Head CT 11/15/2016. Findings: The paranasal sinuses and mastoid air cells are clear. The calvarium and skull base are intact. There is no mass, hematoma, midline shift, acute infarct. White matter hypodensity is nonspecific but suggestive of microvascular ischemic change. The ventricles and sulci demonstrate mild age-related involutional changes. 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 Impression: No significant change compared to the prior study. No acute intracranial abnormality. Electronically signed by: Dante Gómez M.D. 11/19/2016 8:31 AM Dictated Date/Time: 11/19/2016 8:26 AM ABDOMEN AND PELVIS CT WITHOUT CONTRAST CT DOSE: 1076.72 mGy.cm HISTORY: Trauma. Pain. abd pain TECHNIQUE: Multiaxial CT images of the abdomen and pelvis were performed without contrast. COMPARISON STUDY: None. FINDINGS: Trace pleural fluid both lung bases. Liver spleen and pancreas are unremarkable. Kidneys negative for hydronephrosis. Bowel pattern is nonobstructive. Fat-containing periumbilical hernia. No evidence of bowel containment or obstructive change. Bladder is midline. Bladder is midline. No free fluid within the pelvic cul-de-sac. IMPRESSION: Trace pleural fluid both lung bases. No acute process of the abdomen or pelvis. Electronically signed by: Keegan Sharma M.D. 11/19/2016 8:32 AM Dictated Date/Time: 11/19/2016 8:26 AM Laboratory Results 11/19/16 07:45 Red Blood Count 4.11, Mean Corpuscular Volume 90.3, Mean Corpuscular Hemoglobin 29.9, Mean Corpuscular Hemoglobin Concent 33.2, Mean Platelet Volume 9.7, Neutrophils (%) (Auto) 75.7, Lymphocytes (%) (Auto) 13.6, Monocytes (%) (Auto) 9.3, Eosinophils (%) (Auto) 0.9, Basophils (%) (Auto) 0.3, Neutrophils # (Auto) 7.28, Lymphocytes # (Auto) 1.31, Monocytes # (Auto) 0.90, Eosinophils # (Auto) 0.09, Basophils # (Auto) 0.03 11/19/16 07:45 Test 11/19/16 07:45 11/19/16 07:50 White Blood Count 9.63 K/uL (4.8-10.8) Red Blood Count 4.11 M/uL (4.2-5.4) Hemoglobin 12.3 g/dL (12.0-16.0) Hematocrit 37.1 % (37-47) Mean Corpuscular Volume 90.3 fL (80-100) Mean Corpuscular Hemoglobin 29.9 pg (25-34) Mean Corpuscular Hemoglobin Concent 33.2 g/dl (32-36) Platelet Count 259 K/uL (130-400) Mean Platelet Volume 9.7 fL (7.4-10.4) Neutrophils (%) (Auto) 75.7 % Lymphocytes (%) (Auto) 13.6 % Monocytes (%) (Auto) 9.3 % Eosinophils (%) (Auto) 0.9 % Basophils (%) (Auto) 0.3 % Neutrophils # (Auto) 7.28 K/uL (1.4-6.5) Lymphocytes # (Auto) 1.31 K/uL (1.2-3.4) Monocytes # (Auto) 0.90 K/uL (0.11-0.59) Eosinophils # (Auto) 0.09 K/uL (0-0.5) Basophils # (Auto) 0.03 K/uL (0-0.2) RDW Standard Deviation 46.8 fL (36.4-46.3) RDW Coefficient of Variation 14.2 % (11.5-14.5) Immature Granulocyte % (Auto) 0.2 % Immature Granulocyte # (Auto) 0.02 K/uL (0.00-0.02) Prothrombin Time 11.2 SECONDS (9.0-12.0) Prothromb Time International Ratio 1.0 (0.9-1.1) Activated Partial Thromboplast Time 25.8 SECONDS (21.0-31.0) Partial Thromboplastin Ratio 1.0 Anion Gap 9.0 mmol/L (3-11) Est Creatinine Clear Calc Drug Dose 57.1 ml/min Estimated GFR () 69.9 Estimated GFR (Non- 60.3 BUN/Creatinine Ratio 21.9 (10-20) Calcium Level 9.1 mg/dl (8.5-10.1) Total Bilirubin 0.4 mg/dl (0.2-1) Direct Bilirubin < 0.1 mg/dl (0-0.2) Aspartate Amino Transf (AST/SGOT) 22 U/L (15-37) Alanine Aminotransferase (ALT/SGPT) 19 U/L (12-78) Alkaline Phosphatase 84 U/L (45-117) Total Protein 6.5 gm/dl (6.4-8.2) Albumin 3.4 gm/dl (3.4-5.0) Lipase 105 U/L (73-393) Bedside Troponin I 0.000 ng/ml (0-0.045) Laboratory studies as stated above per my review. ECG Indication: altered mental status Rate (beats per minute): 71 Rhythm: normal sinus Findings: no acute ischemic change, no ectopy Comparison ECG Date: 10/15/2005 Change: no significant change ED Course 0629: Past medical records reviewed. The patient was evaluated in room A3, and a complete history and physical examination were performed. 0812: Per nursing staff, the patient was complaining of abdominal pain. 0915: Upon reevaluation, the patient is resting comfortably. I discussed the results and treatment plan with the patient. She verbalized agreement of the treatment plan. The patient was discharged home. Medical Decision Differentials include intracranial hemorrhage, infection, syncope, arrhythmia, dementia, electrolyte or metabolic abnormality. This patient comes in as described above. She suffered what appears to be mechanical fall. She was placed in room A3. She does have dementia so history is somewhat limited. She appears of bruise on her forehead as well as on her right knee. CAT scan was obtained of her head she also started complaining of some abdominal pain so we did abdominal CT. EKG does not suggest acute coronary syndrome or arrhythmia. She has no significant electrolyte or metabolic abnormalities. She has nothing to suggest sepsis or anemia. She was reassessed frequently. She remained stable. CAT scan of her head and abdomen stone no acute findings. She's no injuries or acute findings seen on chest or knee x-ray. She's had no acute electrolyte or metabolic abnormality. She's had nothing to suggest arrhythmia or infection or sepsis. I talked to her daughter who arrived. I will discharge her back to the long-term she should go out of bed with assistance only return if: Increasing pain, fever chills, worsening symptoms, any new problems or concerns Impression Primary Impression: Closed head injury Additional Impression: Fall Scribe Attestation The scribe's documentation has been prepared under my direction and personally reviewed by me in its entirety. I confirm that the note above accurately reflects all work, treatment, procedures, and medical decision making performed by me. Departure Information Dispostion Home / Self-Care [facility]errals [facility] ([facility] Patient Instructions My [facility] Additional Instructions Rest. Out of bed with assistance only Return if: Not acting like self, worsening of symptoms, any new problems or concerns. Follow-up with your doctor in 1-2 days for recheck. Problem Qualifiers
--- NOTE | 2016-11-19 07:26 | DIAGNOSTIC IMAGING REPORT ---
RIGHT KNEE 1 OR 2 VIEWS ROUTINE CLINICAL HISTORY: eval for trauma Right trauma. Pain. COMPARISON: None. DISCUSSION: The bones and joint spaces appear intact. There is no evidence of fracture, dislocation or bony disease. Evidence for a total right knee arthroplasty. IMPRESSION: Negative study. Electronically signed by: Keegan Sharma M.D. 11/19/2016 7:24 AM Dictated Date/Time: 11/19/2016 7:23 AM
--- NOTE | 2016-11-19 07:28 | DIAGNOSTIC IMAGING REPORT ---
CHEST ONE VIEW PORTABLE CLINICAL HISTORY: CHEST PAIN dyspnea COMPARISON STUDY: 11/15/2016 FINDINGS: The bones soft tissues and hemidiaphragms are normal. The cardiomediastinal silhouette is normal. The lungs are clear. The pulmonary vasculature is normal. IMPRESSION: Negative chest. Electronically signed by: Keegan Sharma M.D. 11/19/2016 7:26 AM Dictated Date/Time: 11/19/2016 7:24 AM
[2016-11-19 08:01] LABS: BASO % 0.3 %; BASO ABS # 0.03 K/uL (0-0.2); COMPLETE YES; EOS % 0.9 %; HEMATOCRIT 37.1 % (37-47); IG% 0.2 %; LYMPH % 13.6 %; LYMPH ABS # 1.31 K/uL (1.2-3.4); MEAN CELL VOLUME 90.3 fL (80-100); MEAN CORPUSCULAR HEMOGLOBIN 29.9 pg (25-34); MEAN CORPUSCULAR HGB CONC 33.2 g/dl (32-36); MEAN PLATELET VOLUME 9.7 fL (7.4-10.4); MONO % 9.3 %; NEUT % 75.7 %; PLATELET COUNT 259 K/uL (130-400); RED BLOOD COUNT 4.11 M/uL (4.2-5.4); WHITE BLOOD COUNT 9.63 K/uL (4.8-10.8)
[2016-11-19 08:09] LABS: PROTHROMBIN TIME (PATIENT) 11.2 SECONDS (9.0-12.0)
[2016-11-19 08:18] LABS: BUN/CREATININE RATIO 21.9 (10-20); CREATININE 0.88 mg/dl (0.60-1.20); POTASSIUM 3.8 mmol/L (3.5-5.1)
[2016-11-19 08:21] LABS: ALKALINE PHOSPHATASE 84 U/L (45-117); ALT/SGPT 19 U/L (12-78); AST/SGOT 22 U/L (15-37)
--- NOTE | 2016-11-19 08:33 | DIAGNOSTIC IMAGING REPORT ---
HEAD CT NONCONTRAST CT DOSE: 614.27 mGy.cm HISTORY: Fall. Head injury. TECHNIQUE: Multiaxial CT images of the head were performed without the use of intravenous contrast. Automated exposure control was utilized for this study. Comparison: Head CT 11/15/2016. Findings: The paranasal sinuses and mastoid air cells are clear. The calvarium and skull base are intact. There is no mass, hematoma, midline shift, acute infarct. White matter hypodensity is nonspecific but suggestive of microvascular ischemic change. The ventricles and sulci demonstrate mild age-related involutional changes. 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 Impression: No significant change compared to the prior study. No acute intracranial abnormality. Electronically signed by: Dante Gómez M.D. 11/19/2016 8:31 AM Dictated Date/Time: 11/19/2016 8:26 AM
--- NOTE | 2016-11-19 08:34 | DIAGNOSTIC IMAGING REPORT ---
ABDOMEN AND PELVIS CT WITHOUT CONTRAST CT DOSE: 1076.72 mGy.cm HISTORY: Trauma. Pain. abd pain TECHNIQUE: Multiaxial CT images of the abdomen and pelvis were performed without contrast. COMPARISON STUDY: None. FINDINGS: Trace pleural fluid both lung bases. Liver spleen and pancreas are unremarkable. Kidneys negative for hydronephrosis. Bowel pattern is nonobstructive. Fat-containing periumbilical hernia. No evidence of bowel containment or obstructive change. Bladder is midline. Bladder is midline. No free fluid within the pelvic cul-de-sac. IMPRESSION: Trace pleural fluid both lung bases. No acute process of the abdomen or pelvis. Electronically signed by: Keegan Sharma M.D. 11/19/2016 8:32 AM Dictated Date/Time: 11/19/2016 8:26 AM
[2016-11-19 12:01] LABS: CALCIUM 9.1 mg/dl (8.5-10.1)
[2016-11-19 12:36] VITALS: BP 159/86; PULSE 80; O2SAT 95
--- NOTE | 2016-11-19 16:30 | ELECTROENCEPHALOGRAPH REPORT ---
CLINICAL DIAGNOSIS: Episodic unresponsiveness, question nonconvulsive seizures. EEG DIAGNOSIS: Mildly diffusely abnormal EEG during apparent clinical wakefulness. DESCRIPTION OF TRACING: This EEG was done as a bedside recording with simultaneous video analysis of patient movement and behavior. Photic stimulation was performed. Hyperventilation was not. Drowsiness and light sleep are not clearly recorded. Under these conditions, there is evidence for a background rhythm in the alpha range of up to 9 Hz of maximum frequency and 30 microvolts of maximum amplitude. There is maximum posterior head regions bilaterally symmetrical. Polymorphic mid to slightly lower frequency theta activity of modest voltage intermixed with some waveforms in the delta range is seen over all head regions without clear focal or regional predominance. Anterior head region maximum bilaterally symmetrical low voltage fast activity in the beta range is present. Photic stimulation provokes a minimal driving response, without a photomyogenic or photoparoxysmal component. At no time during the apparent waking tracing is there evidence for potentially epileptogenic activity in the form of polyspike or spike wave bursts, focal sharp waves, focal spikes or long runs of rhythmic theta activity. INTERPRETATION: This EEG is essentially normal to at most mildly slow with slightly excessive amounts of slow wave activity yet a normal background alpha rhythm. The pattern is nonspecific, may be quite normal for the age and indicates no evidence for a significant focal encephalopathy, nor evidence for potentially epileptogenic activity. MTDD
[2017-01-14] MEDS ORDERED: ACET-1256 PO ×2 (01:11→01:31)
[2017-01-14] MEDS ORDERED: ESCI10TA17 PO (01:24)
[2017-01-14] MEDS ORDERED: SPIR25TA PO (03:36)
[2017-01-14] MEDS ORDERED: PANT40TA PO (03:36)
[2017-01-14] MEDS ORDERED: GABA-1218 PO (06:07)
[2017-01-14] MEDS ORDERED: POLY1POW2 PO (09:47)
[2017-01-14] MEDS ORDERED: POTA10CA28 PO (10:57)
[2017-01-14] MEDS ORDERED: RISP0.258 PO (11:00)
[2017-01-14] MEDS ORDERED: TRAZ50TA35 PO (13:16)
[2017-01-14] MEDS ORDERED: CHOL2000 PO (15:46)
[2017-03-20] MEDS ORDERED: DLCSR120 PO (13:51)
[2017-03-20] MEDS ORDERED: METO50TA16 PO (13:51)
[2017-03-20] MEDS ORDERED: TRAM-10 PO (13:51)
[2017-03-20] MEDS ORDERED: CMD5 PO (13:51)
[2017-03-23] MEDS ORDERED: CEFD1CAP14 PO (12:16)
[2017-03-23] MEDS ORDERED: CMD3 PO (12:16)
[2017-03-23] MEDS ORDERED: TRAZ50TA35 PO (12:16)
[2017-03-23] MEDS ORDERED: DLCSR120 PO (12:16)
== END 2016-11-19 12:37 | disposition home or self-care (01) ==
LOC: EDBD 05:58 → C.EDA 05:59
DX: S09.90XA Unspecified injury of head, initial encounter (principal); S80.211A Abrasion, right knee, initial encounter; W01.10XA Fall on same level from slipping, tripping and stumbling with subsequent striking against unspecified object, initial encounter; F03.90 Unspecified dementia, unspecified severity, without behavioral disturbance, psychotic disturbance, mood disturbance, and anxiety; J45.909 Unspecified asthma, uncomplicated; I48.91 Unspecified atrial fibrillation; I10 Essential (primary) hypertension; Z86.711 Personal history of pulmonary embolism; Z86.718 Personal history of other venous thrombosis and embolism; Z96.653 Presence of artificial knee joint, bilateral; Z79.899 Other long term (current) drug therapy

== ENCOUNTER 2017-01-03 00:33 | Emergency (ER) | payer OTHER ==
[~2017-01-03 00:33] MED LIST changes: -DOXY100C41 PO; -LCTX PO; -LEVO1TAB34 PO
[2017-01-03 00:40] VITALS: TEMP 36.7
--- NOTE | 2017-01-03 01:48 | EMERGENCY ROOM VISIT NOTE ---
History Report prepared by Chilo: Selena Ceja Under the Supervision of: Dr. Murtaza Cerna D.O. First contact with patient: 00:45 Chief Complaint: FALL Stated Complaint: FALL History of Present Illness The patient is a 86 year old female who presents to the Emergency Room with complaints of a fall. Per nursing staff, the patient was found by her bed. She is a resident at [facility]. HPI is limited due to dementia. Source of History: patient, nursing staff History Limited By: dementia Position: other Review of Systems ROS limited due to dementia. Past Medical & Surgical Medical Problems: (1) Asthma (2) Atrial Fibrillation (3) Dementia (4) Diverticulosis Colon (W/O Ment Of Hemorrhage) (5) DVT (deep venous thrombosis) (6) Hypertension Nos (7) PE (pulmonary embolism) (8) SBO (small bowel obstruction) Surgical Problems: (1) History of appendectomy (2) History of hemicolectomy (3) History of tonsillectomy (4) History of total bilateral knee replacement Family History Dementia MOTHER Heart disease FATHER Social History Smoking Status: Unknown if Ever Smoked Alcohol Use: none Housing Status: fpc Current/Historical Medications Scheduled Acetaminophen (Tylenol), 500 MG PO TID Cholecalciferol (Vitamin D3), 2,000 UNITS PO DAILY Escitalopram (Lexapro), 10 MG PO DAILY Gabapentin (Neurontin), 300 MG PO Q8 Pantoprazole (Protonix), 40 MG PO HS Polyethylene Glycol 3350 (Bulk (Polyethylene Glycol 3350), 17 GM PO DAILY Potassium Chloride (Micro-K Ext Rel), 10 MEQ PO QPM Risperidone (Risperdal), 0.25 MG PO BID Spironolactone (Aldactone), 25 MG PO 2XWK Trazodone Hcl (Trazodone), 25 MG PO HS Scheduled PRN Acetaminophen (Tylenol), 500 MG PO Q4H PRN for Pain Allergies Coded Allergies: Penicillins (Verified Allergy, Mild, 11/19/16) Sertraline (Unverified Allergy, Unknown, UNKNOWN, 11/19/16) Sulfa Drugs (Verified Allergy, Unknown, 11/19/16) Uncoded Allergies: human albumin (Adverse Reaction, Unknown, unknown, 01/04/16) Physical Exam Vital Signs Date Time Temp Pulse Resp B/P (MAP) Pulse Ox O2 Delivery O2 Flow Rate FiO2 6/2/17 00:40 36.7 68 185/77 95 Room Air Physical Exam GENERAL: Awake, alert, well-appearing, in no distress HENT: Normocephalic, atraumatic. Oropharynx unremarkable. EYES: Normal conjunctiva. Sclera non-icteric. NECK: Supple. No nuchal rigidity. FROM. No JVD. RESPIRATORY: Clear to auscultation. CARDIAC: Regular rate, normal rhythm. Extremities warm and well perfused. Pulses equal. ABDOMEN: Soft, non-distended. No tenderness to palpation. No rebound or guarding. No masses. RECTAL: Deferred. MUSCULOSKELETAL: Chest examination reveals no tenderness. The back is symmetrical on inspection without obvious abnormality. There is no CVA tenderness to palpation. Right forehead contusion, right shoulder contusion, ecchymosis in various stages of healing, left shoulder old ecchymosis, midsternum has old bruising, right knee has abrasion. Bilateral lower extremity edema. LOWER EXTREMITIES: Calves are equal size bilaterally and non-tender. No edema. No discoloration. NEURO: Normal sensorium. No sensory or motor deficits noted. SKIN: No rash or jaundice noted. Medical Decision & Procedures ER Provider Diagnostic Interpretation: Radiology results as stated below per statrad. CT HEAD: No evidence of acute infarct, hemorrhage, mass or edema. Chronic small vessel ischemic disease and senescent changes. Mild soft tissue swelling noted about the right frontal scalp, likely posttraumatic. Mild mucosal thickening of the paranasal sinuses. Radiology results as stated below per statrad. CT C SPINE: No acute fracture or traumatic malalignment. Multilevel degenerative changes. Smooth intralobular septal thickening seen within the visualized lungs which may represent mild interstitial edema. X-ray: Per my interpretation, radiologist review. Right Shoulder X-ray Negative for fracture and dislocation. ED Course 0045: The patient was evaluated in room A2. A complete history and physical exam was performed. 0144: I reevaluated the patient. Discussed results and discharge instructions: She verbalized understanding and agreement. The patient is ready for discharge. Medical Decision Differential diagnoses include but are not limited to; sprain/strain, contusion , fracture, closed head injury, skull fracture, and cervical spine injury. Repeat examination patient's in no distress, I discussed the evaluation with the patient's daughter at bedside. Patient's vacations were reviewed and her blood pressure was reviewed. Patient will be returned to the dementia unit for observation Impression Primary Impression: Closed head injury Additional Impressions: Contusion of shoulder, right Dementia Scribe Attestation The scribe's documentation has been prepared under my direction and personally reviewed by me in its entirety. I confirm that the note above accurately reflects all work, treatment, procedures, and medical decision making performed by me. Departure Information Dispostion Home / Self-Care Referrals [facility] (PCP) Patient Instructions Bruises Contusions, ED Head Injury Closed, My [facility] Problem Qualifiers Primary Impression: Closed head injury Encounter type: initial encounter Qualified Codes: S09.90XA - Unspecified injury of head, initial encounter Additional Impressions: Dementia Dementia type: unspecified type Dementia behavioral disturbance: without behavioral disturbance Qualified Codes: F03.90 - Unspecified dementia without behavioral disturbance
[2017-01-03 03:02] VITALS: BP 176/75; PULSE 62; O2SAT 98
--- NOTE | 2017-01-03 06:33 | DIAGNOSTIC IMAGING REPORT ---
CT HEAD WITHOUT CONTRAST (CT) CLINICAL HISTORY: Head pain. Trauma. Patient found on floor. COMPARISON STUDY: 11/19/2016 TECHNIQUE: Axial CT of the brain is performed from the vertex to the skull base. IV contrast was not administered for this examination. CT DOSE: FINDINGS: No intra or extra-axial mass lesions are visualized. There is no CT evidence of acute cortical infarction. There is no evidence of midline shift. There is no acute hemorrhage. No calvarial fractures are visualized. There are patchy white matter hypodensities likely on a small vessel basis. There is no evidence of pathologic ventricular dilatation. There is no evidence of acute sinusitis. There is right frontal scalp edema. IMPRESSION: 1. Right frontal scalp edema 2. No acute intracranial findings Electronically signed by: Barrera Loyola M.D. 01/03/2017 6:32 AM Dictated Date/Time: 01/03/2017 6:31 AM
--- NOTE | 2017-01-03 06:39 | DIAGNOSTIC IMAGING REPORT ---
CT OF THE CERVICAL SPINE WITHOUT CONTRAST CLINICAL HISTORY: Neck pain following fall. COMPARISON STUDY: Cervical spine CT July 28, 2016. TECHNIQUE: Helical axial images of the cervical spine were obtained without IV contrast. Sagittal and coronal reconstructions were viewed. FINDINGS: No acute cervical spine fracture is identified. The craniocervical junction is intact. There is mild multilevel degenerative disc disease and moderate to severe multilevel facet arthrosis. There is no prevertebral edema. No pneumothorax is shown within visualized portions of the lung apices. IMPRESSION: No acute cervical spine fracture or subluxation. Electronically signed by: Matthew Abraham M.D. 01/03/2017 6:37 AM Dictated Date/Time: 01/03/2017 6:34 AM
--- NOTE | 2017-01-03 06:41 | DIAGNOSTIC IMAGING REPORT ---
RIGHT SHOULDER MIN 2 VIEWS ROUTINE CLINICAL HISTORY: Right shoulder pain following fall. COMPARISON: None FINDINGS: This exam is compromised by suboptimal penetration and motion artifact. No acute fracture or dislocation is identified. Severe glenohumeral joint space narrowing is noted. There is moderate AC joint arthrosis. IMPRESSION: 1. No acute fracture or dislocation of the right shoulder. 2. 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 Electronically signed by: Matthew Abraham M.D. 01/03/2017 6:39 AM Dictated Date/Time: 01/03/2017 6:37 AM
[2017-01-14] MEDS ORDERED: ACET-1256 PO ×2 (01:11→01:31)
[2017-01-14] MEDS ORDERED: ESCI10TA17 PO (01:24)
[2017-01-14] MEDS ORDERED: SPIR25TA PO (03:36)
[2017-01-14] MEDS ORDERED: PANT40TA PO (03:36)
[2017-01-14] MEDS ORDERED: GABA-1218 PO (06:07)
[2017-01-14] MEDS ORDERED: POLY1POW2 PO (09:47)
[2017-01-14] MEDS ORDERED: POTA10CA28 PO (10:57)
[2017-01-14] MEDS ORDERED: RISP0.258 PO (11:00)
[2017-01-14] MEDS ORDERED: TRAZ50TA35 PO (13:16)
[2017-01-14] MEDS ORDERED: CHOL2000 PO (15:46)
[2017-03-20] MEDS ORDERED: TRAM-10 PO (13:51)
[2017-03-20] MEDS ORDERED: CMD5 PO (13:51)
[2017-03-20] MEDS ORDERED: METO50TA16 PO (13:51)
[2017-03-20] MEDS ORDERED: DLCSR120 PO (13:51)
[2017-03-23] MEDS ORDERED: TRAZ50TA35 PO (12:16)
[2017-03-23] MEDS ORDERED: CMD3 PO (12:16)
[2017-03-23] MEDS ORDERED: CEFD1CAP14 PO (12:16)
[2017-03-23] MEDS ORDERED: DLCSR120 PO (12:16)
== END 2017-01-03 03:02 | disposition home or self-care (01) ==
LOC: EDBD 00:33 → C.EDA 00:36
DX: S00.83XA Contusion of other part of head, initial encounter (principal); S40.011A Contusion of right shoulder, initial encounter; W19.XXXA Unspecified fall, initial encounter; Y92.129 Unspecified place in nursing home as the place of occurrence of the external cause; F03.90 Unspecified dementia, unspecified severity, without behavioral disturbance, psychotic disturbance, mood disturbance, and anxiety; J45.909 Unspecified asthma, uncomplicated; I48.91 Unspecified atrial fibrillation; I10 Essential (primary) hypertension; Z86.718 Personal history of other venous thrombosis and embolism; Z86.711 Personal history of pulmonary embolism; Z96.653 Presence of artificial knee joint, bilateral; Z90.49 Acquired absence of other specified parts of digestive tract; Z79.899 Other long term (current) drug therapy

== ENCOUNTER 2017-01-14 22:14 | Emergency (ER) | payer OTHER ==
[~2017-01-14] VITALS: Ht 172.7 cm; Wt 94.5 kg
[~2017-01-14 22:14] MED LIST changes: +ACET-1256 PO; +CHOL2000 PO; -DICL1GEL12 TOP; +ESCI10TA17 PO; +GABA-1218 PO; -HYDR-5688 PO; +PANT40TA PO; +POLY1POW2 PO; +POTA10CA28 PO; +RISP0.258 PO; -RISP0.5T10 PO; -SERT50TA PO; +SPIR25TA PO; +TRAZ50TA35 PO
[2017-01-14 22:24] VITALS: TEMP 36.6; Ht 172.7 cm; Wt 94.5 kg
[2017-01-14] MEDS ORDERED: [UNRECOGNIZED DRUG - OTHER] TOP (23:02)
--- NOTE | 2017-01-14 23:33 | EMERGENCY ROOM VISIT NOTE ---
History Report prepared by Chilo: Med Figueroa Under the Supervision of: Dr. Radha Romero D.O. First contact with patient: 23:12 Chief Complaint: FALL Stated Complaint: FALL History of Present Illness The patient is a 86 year old female who presents to the Emergency Room via BLS from [facility] for concerns about a fall occurring a few minutes prior to arrival. She fell from the bed to the ground. The patient has a history of falling from the bed. She has an abrasion on the right side of the forehead. She was also complaining of a headache prior to the fall. The patient does not normally complain of a headache. She currently also reports left knee pain. She has a bruise on the left hip. On a normal basis, the patient frequently complains of left leg pain. She has a history of knee replacement. The patient' s mental status is better than normal today. She has had a normal appetite and a normal fluid intake. She is on Aspirin but is not on any other blood thinners. HPI is limited secondary to dementia. Additional history is obtained as per daughter. Source of History: patient, family History Limited By: dementia Onset: a few minutes prior to arrival Position: other (global) Quality: other (fall) Associated Symptoms: + headache Review of Systems ROS is limited secondary to dementia. Past Medical & Surgical Medical Problems: (1) Asthma (2) Atrial Fibrillation (3) Dementia (4) Diverticulosis Colon (W/O Ment Of Hemorrhage) (5) DVT (deep venous thrombosis) (6) Hypertension Nos (7) PE (pulmonary embolism) (8) SBO (small bowel obstruction) Surgical Problems: (1) History of appendectomy (2) History of hemicolectomy (3) History of tonsillectomy (4) History of total bilateral knee replacement Family History Dementia MOTHER Heart disease FATHER Social History Smoking Status: Unknown if Ever Smoked Alcohol Use: none Marital Status: Housing Status: residential Occupation Status: retired Current/Historical Medications Scheduled Acetaminophen (Tylenol), 500 MG PO TID Cholecalciferol (Vitamin D3), 2,000 UNITS PO DAILY Escitalopram (Lexapro), 10 MG PO DAILY Gabapentin (Neurontin), 300 MG PO Q8 Pantoprazole (Protonix), 40 MG PO HS Potassium Chloride (Micro-K Ext Rel), 10 MEQ PO QPM Risperidone (Risperdal), 0.25 MG PO BID Spironolactone (Aldactone), 25 MG PO 2XWK Trazodone Hcl (Trazodone), 25 MG PO HS [Optifoam], 1 PATCH TOP DAILY Scheduled PRN Acetaminophen (Tylenol), 500 MG PO Q4H PRN for Pain Polyethylene Glycol 3350 (Bulk (Polyethylene Glycol 3350), 17 GM PO DAILY PRN for Constipation Allergies Coded Allergies: Penicillins (Verified Allergy, Mild, 11/19/16) Sertraline (Unverified Allergy, Unknown, UNKNOWN, 11/19/16) Sulfa Drugs (Verified Allergy, Unknown, 11/19/16) Uncoded Allergies: human albumin (Adverse Reaction, Unknown, unknown, 01/04/16) Physical Exam Vital Signs Date Time Temp Pulse Resp B/P (MAP) Pulse Ox O2 Delivery O2 Flow Rate FiO2 01/15/17 02:43 76 01/15/17 02:21 68 16 01/15/17 01:00 76 18 144/65 97 01/15/17 00:21 71 18 145/62 96 Room Air 01/14/17 23:06 71 18 145/62 99 Room Air 01/14/17 22:34 68 01/14/17 22:24 36.6 68 18 141/67 98 Room Air Physical Exam HEENT: Head - normocephalic. Abrasion above the right eye. Pupils are equal, round, and reactive to light. Extraocular eye muscles are intact and sclera are anicteric. Ears - bilaterally patent canals with no evidence of hemotympanum. Nose - moist nasal mucosa without evidence of trauma or discharge. Mouth - moist buccal mucosa with no trauma to the teeth or signs of malocclusion. Neck: The neck is supple and there is no pain to palpation over the posterior cervical spine and no obvious step-offs or deformities. There is no JVD or tracheal deviation. Chest: There are no signs of deformities, or abrasions to the chest wall. There is no obvious crepitus or paradoxical chest rise. Old bruises to the anterior chest wall. Heart: Regular, rate, and rhythm. There is a normal S1 and S2 with no murmurs, clicks, or gallops appreciated. Lungs: Clear to auscultation bilaterally with no wheezes, rales, or rhonchi. Abdomen: Soft, completely nontender, nondistended, with good bowel sounds. There is no sign of trauma such as contusions, abrasions or penetrations. There are no palpable pulsatile masses or hepatosplenomegaly. There is no guarding, rigidity, or rebound noted. Pelvis: Stable to rock and compression. Extremities: No obvious deformities or edema. There are easily palpable peripheral pulses. Contusion over the distal left lateral thigh. Neuro: The patient's mental status is at baseline and easily able to follow commands. Muscle strength is 5 out of 5 in all 4 extremities. Otherwise, neuro exam is unremarkable. Back: The entire thoracic, lumbar, and sacral spine were palpated. There are no obvious step-offs or deformities noted. There are no obvious signs of trauma such as contusions abrasions penetrations noted to the back. Medical Decision & Procedures ER Provider Diagnostic Interpretation: X-ray results as stated below per interpretation by me: LEFT KNEE X-RAY Hardware appears in place, no obv fracture or dislocation CT results as stated below per my review and radiologist interpretation: CT HEAD Comparison: 01/03/2017 No evidence of acute infarct, hemorrhage, mass, or edema. Chronic small vessel ischemic disease and senescent changes. Minimal mucosal thickening of the paranasal sinuses. Radiologist: Iron Mcguire MD ECG Indication: other (Fall) Rate (beats per minute): 74 Rhythm: normal sinus Findings: no ectopy, other (Significant artifact in lateral leads) ED Course 2312: Past medical records reviewed. The patient was evaluated in room B12B. A complete history and physical exam was performed. The patient for CT scan of her brain and plain x-rays of her left knee 0022: I reevaluated the patient. She is no longer complaining of any pain. 0032: Upon reevaluation, the patient is doing well. I discussed findings and results with the patient's daughter. She verbalized agreement of the treatment plan. The patient was discharged home. Medical Decision The patient presents to the Emergency Room with concerns about a fall. Differential diagnosis includes but is not limited to femur fracture, knee injury, closed head injury, skull fracture, intracranial trauma. I attest that I have personally reviewed the patient's current medication list. Blood Pressure Screening: Patient was found to have a slightly elevated blood pressure due to circumstances. I do not believe that the patient requires hypertension monitoring. The patient's mental status is at baseline. CT scan of brain was unremarkable. X-ray of the left knee was negative for fracture. The patient will be discharged back to [facility]. I suggested that the family discussed additional fall precautions with staff at [facility]. Impression Primary Impression: Fall from bed Additional Impressions: Closed head injury Contusion of left leg Scribe Attestation The scribe's documentation has been prepared under my direction and personally reviewed by me in its entirety. I confirm that the note above accurately reflects all work, treatment, procedures, and medical decision making performed by me. Departure Information Dispostion Home / Self-Care Referrals [facility] (PCP) Forms HOME CARE DOCUMENTATION FORM, IMPORTANT VISIT INFORMATION Patient Instructions ED Head Injury Closed, Falls Preventing, My [facility] Additional Instructions Discuss further fall-prevention measures with the staff at [facility]. Problem Qualifiers Primary Impression: Fall from bed Encounter type: initial encounter Qualified Codes: W06.XXXA - Fall from bed , initial encounter Additional Impressions: Closed head injury Encounter type: initial encounter Qualified Codes: S09.90XA - Unspecified injury of head, initial encounter
[2017-01-15 01:00] VITALS: BP 144/65; O2SAT 97
[2017-01-15 02:43] VITALS: PULSE 76
--- NOTE | 2017-01-15 06:55 | DIAGNOSTIC IMAGING REPORT ---
CT OF THE HEAD WITHOUT CONTRAST CLINICAL HISTORY: fall - hit right head COMPARISON STUDY: Head CT January 03, 2017. CT DOSE: 810.83 mGy.cm TECHNIQUE: Helical axial images of the head were obtained without IV contrast. Automated exposure control was utilized for the study. FINDINGS: No acute intracranial hemorrhage, midline shift or mass effect is present. Ventricular system is stable. Basilar cisterns are patent. There are no extra axial collections. White matter hypodensity suggests small vessel disease. There are no findings to suggest acute dural sinus thrombosis or acute territorial infarct. There is mild mucosal thickening of the ethmoid sinuses. IMPRESSION: 1. No acute intracranial findings. 2. No calvarial fracture. Electronically signed by: Matthew Abraham M.D. 01/15/2017 6:53 AM Dictated Date/Time: 01/15/2017 6:51 AM
--- NOTE | 2017-01-15 07:59 | DIAGNOSTIC IMAGING REPORT ---
LEFT KNEE 2 VIEWS HISTORY: eval left knee pain COMPARISON: None. FINDINGS: There is no fracture or dislocation. Left total knee arthroplasty. No hardware appears intact. No significant knee effusion. Mild diffuse subcutaneous edema. The bones are osteopenic. IMPRESSION: Mild diffuse subcutaneous edema. No acute fractures within the left knee. Electronically signed by: Dante Gómez M.D. 01/15/2017 7:58 AM Dictated Date/Time: 01/15/2017 7:57 AM
[2017-03-20] MEDS ORDERED: DLCSR120 PO (13:51)
[2017-03-20] MEDS ORDERED: TRAM-10 PO (13:51)
[2017-03-20] MEDS ORDERED: METO50TA16 PO (13:51)
[2017-03-20] MEDS ORDERED: CMD5 PO (13:51)
[2017-03-23] MEDS ORDERED: CEFD1CAP14 PO (12:16)
[2017-03-23] MEDS ORDERED: CMD3 PO (12:16)
[2017-03-23] MEDS ORDERED: TRAZ50TA35 PO (12:16)
[2017-03-23] MEDS ORDERED: DLCSR120 PO (12:16)
== END 2017-01-15 01:00 | disposition home or self-care (01) ==
LOC: EDBD 22:14 → C.EDB 22:15
DX: S09.90XA Unspecified injury of head, initial encounter (principal); S80.12XA Contusion of left lower leg, initial encounter; W06.XXXA Fall from bed, initial encounter; Y92.193 Bedroom in other specified residential institution as the place of occurrence of the external cause; J45.909 Unspecified asthma, uncomplicated; I48.91 Unspecified atrial fibrillation; F03.90 Unspecified dementia, unspecified severity, without behavioral disturbance, psychotic disturbance, mood disturbance, and anxiety; Z86.711 Personal history of pulmonary embolism; Z82.49 Family history of ischemic heart disease and other diseases of the circulatory system; Z79.899 Other long term (current) drug therapy

== ENCOUNTER → 2017-02-14 | Outpatient (CLI) | payer OTHER ==
[~2017-02-14] MED LIST changes: +CEFD1CAP14 PO; +CMD3 PO; +CMD5 PO; +DLCSR120 PO; -GABA-1218 PO; +GABA300C19 PO; +METO50TA16 PO; +RISP0.5T10 PO; +TRAM-10 PO; +ZNTT/150 PO; +[UNRECOGNIZED DRUG - OTHER] TOP
[2017-02-14 08:45] LABS: ALT/SGPT 20 U/L (12-78); BLOOD UREA NITROGEN 16 mg/dl (7-18); BUN/CREATININE RATIO 18.2 (10-20); CALCIUM 8.8 mg/dl (8.5-10.1); CARBON DIOXIDE 25 mmol/L (21-32); CHLORIDE 111 mmol/L (98-107); CREATININE 0.85 mg/dl (0.60-1.20); GLUCOSE 83 mg/dl (70-99); SODIUM 143 mmol/L (136-145)
[2017-02-14 08:55] LABS: ALB/GLOB RATIO 1.1 (0.9-2); ALKALINE PHOSPHATASE 97 U/L (45-117); AST/SGOT 19 U/L (15-37)
[2017-02-14 09:35] LABS: HEMATOCRIT 36.4 % (37-47); MEAN CELL VOLUME 93.3 fL (80-100); MEAN PLATELET VOLUME 10.6 fL (7.4-10.4); PLATELET COUNT 222 K/uL (130-400); WHITE BLOOD COUNT 6.17 K/uL (4.8-10.8)
== END | disposition home or self-care (01) ==
LOC: C.LABFOXAN 07:33
PROVIDERS: ATTEND Nurse Practitioner Family
DX: R41.3 Other amnesia (principal)

== ENCOUNTER 2017-03-17 15:29 | Inpatient (IN) | payer OTHER ==
[~2017-03-17] VITALS: Ht 170.2 cm; Wt 85.7 kg
[~2017-03-17 15:29] MED LIST changes: -CEFD1CAP14 PO; -CMD3 PO; -CMD5 PO; -DLCSR120 PO; -METO50TA16 PO; -RISP0.5T10 PO; -TRAM-10 PO; -ZNTT/150 PO
[2017-03-17] MEDS ORDERED: METOPROLOL TARTRATE 1 MG/ML VIAL IV STA (15:39)
[2017-03-17 15:56] LABS: BASO % 0.2 %; BASO ABS # 0.02 K/uL (0-0.2); COMPLETE YES; EOS % 2.1 %; HEMATOCRIT 39.7 % (37-47); IG% 0.1 %; LYMPH % 23.3 %; LYMPH ABS # 1.96 K/uL (1.2-3.4); MEAN CELL VOLUME 92.3 fL (80-100); MEAN CORPUSCULAR HEMOGLOBIN 29.3 pg (25-34); MEAN CORPUSCULAR HGB CONC 31.7 g/dl (32-36); MEAN PLATELET VOLUME 10.5 fL (7.4-10.4); MONO % 9.8 %; NEUT % 64.5 %; PLATELET COUNT 200 K/uL (130-400); WHITE BLOOD COUNT 8.41 K/uL (4.8-10.8)
--- NOTE | 2017-03-17 15:57 | DIAGNOSTIC IMAGING REPORT ---
SINGLE VIEW CHEST CLINICAL HISTORY: Fever. FINDINGS: An AP, portable, upright chest radiograph is compared to study dated 11/19/2016. The examination is degraded by portable technique and patient rotation. The heart is mildly enlarged and there is atherosclerotic calcification of the thoracic aorta. The pulmonary vasculature is noncongested. Chronic interstitial thickening is similar to previous. Minimal bibasilar atelectasis is observed. No airspace consolidation, large pleural effusion, or pneumothorax is seen. The skeletal structures are osteopenic. Degenerative change is noted in the shoulders and thoracic spine. IMPRESSION: Cardiac enlargement with no acute cardiopulmonary abnormality. Electronically signed by: Uche Figueroa M.D. 03/17/2017 3:56 PM Dictated Date/Time: 03/17/2017 3:55 PM
[2017-03-17 16:11] LABS: INR 1.1 (0.9-1.1); PROTHROMBIN TIME (PATIENT) 11.5 SECONDS (9.0-12.0)
[2017-03-17 16:23] LABS: ALT/SGPT 19 U/L (12-78); AST/SGOT 15 U/L (15-37); BLOOD UREA NITROGEN 37 mg/dl (7-18); BUN/CREATININE RATIO 31.1 (10-20); CALCIUM 8.6 mg/dl (8.5-10.1); CARBON DIOXIDE 23 mmol/L (21-32); CHLORIDE 112 mmol/L (98-107); GLUCOSE 113 mg/dl (70-99); POTASSIUM 4.4 mmol/L (3.5-5.1); SODIUM 144 mmol/L (136-145)
[2017-03-17 16:34] LABS: ALKALINE PHOSPHATASE 93 U/L (45-117); CKMB/CK RATIO 4.8 (0-3.0)
[2017-03-17] MEDS ORDERED: METO50TA16 PO (17:55)
[2017-03-17] MEDS ORDERED: ZNTT/150 PO (17:57)
[2017-03-17] MEDS ORDERED: RISP0.5T10 PO (17:59)
[2017-03-17] MEDS ORDERED: TRAM-10 PO (18:01)
--- NOTE | 2017-03-17 18:51 | EMERGENCY ROOM VISIT NOTE ---
History Report prepared by Chilo: Blanquita Pascal Under the Supervision of: Dr. Ruben Holt D.O. First contact with patient: 15:30 Stated Complaint: TACHYCARDIA / [place] History of Present Illness The patient is an 87 year old female who presents to the Emergency Room with complaints of a persistent irregular heart rate and rhythm that began prior to arrival. Per EMS, the patient arrives via ALS from [facility]. EMS reports that the staff at [facility] became concerned about the patient and was taken down to the clinic to have an EKG performed. EMS states that the patient's EKG revealed atrial flutter, but denies any history of atrial flutter. EMS reports that the patient has a history of chronic atrial fibrillation. EMS reports that staff has noticed the patient is more agitated recently. EMS reports that the patient takes Lopressor daily. EMS reports that the patient was given 20 of Cardizem prior to arrival to the emergency department. The history is limited secondary to the patient's dementia. Source of History: EMS History Limited By: dementia Onset: prior to arrival Position: other (heart) Quality: other (irregular heart rate) Timing: other (persistent) Note: Associated Symptoms: increased agitation Review of Systems The HPI and ROS are limited secondary to the patient's dementia. Past Medical & Surgical Medical Problems: (1) Asthma (2) Atrial Fibrillation (3) Dementia (4) Diverticulosis Colon (W/O Ment Of Hemorrhage) (5) DVT (deep venous thrombosis) (6) Hypertension Nos (7) PE (pulmonary embolism) (8) SBO (small bowel obstruction) Surgical Problems: (1) History of appendectomy (2) History of hemicolectomy (3) History of tonsillectomy (4) History of total bilateral knee replacement Family History Dementia MOTHER Heart disease FATHER Social History Smoking Status: Unknown if Ever Smoked Alcohol Use: none Marital Status: Housing Status: residential Occupation Status: retired Current/Historical Medications Scheduled Acetaminophen (Tylenol), 500 MG PO TID Cholecalciferol (Vitamin D3), 2,000 UNITS PO DAILY Escitalopram (Lexapro), 10 MG PO DAILY Gabapentin (Neurontin), 300 MG PO Q8 Metoprolol Tartrate (Lopressor) (Lopressor), 50 MG PO BID Ranitidine (Zantac), 150 MG PO QPM Risperidone (Risperdal), 0.25 MG PO QAM Risperidone (Risperdal), 0.5 MG PO HS Spironolactone (Aldactone), 25 MG PO QAM Trazodone Hcl (Trazodone), 25 MG PO HS Scheduled PRN Polyethylene Glycol 3350 (Bulk (Polyethylene Glycol 3350), 17 GM PO QAM PRN for Constipation Tramadol (Ultram), 25 MG PO Q4H PRN for Pain Allergies Coded Allergies: Penicillins (Verified Allergy, Mild, 11/19/16) Sertraline (Unverified Allergy, Unknown, UNKNOWN, 11/19/16) Sulfa Drugs (Verified Allergy, Unknown, 11/19/16) Uncoded Allergies: human albumin (Adverse Reaction, Unknown, unknown, 01/04/16) Physical Exam Vital Signs Date Time Temp Pulse Resp B/P (MAP) Pulse Ox O2 Delivery O2 Flow Rate FiO2 03/17/17 18:30 90 16 127/86 03/17/17 17:15 77 20 122/79 93 Room Air 03/17/17 16:04 65 03/17/17 16:03 76 16 102/65 96 Room Air 03/17/17 15:52 74 107/54 03/17/17 15:38 97 Room Air 03/17/17 15:38 97 Room Air 03/17/17 15:38 36.9 77 16 116/76 97 Room Air Physical Exam CONSTITUTIONAL/VITAL SIGNS: Reviewed / noted above. GENERAL: Non-toxic in appearance. INTEGUMENTARY: Warm, dry, and [place]. HEAD: Normocephalic. EYES: without scleral icterus or trauma. ENT/OROPHARYNX: clear and moist. LYMPHADENOPATHY/NECK: Is supple without lymphadenopathy or meningismus. RESPIRATORY: Lungs clear and equal. CARDIOVASCULAR: Heart rate is irregular with a normal rate GI/ABDOMEN: Soft and nontender. No organomegaly or pulsatile mass. No rebound or guarding. Normal bowel sounds. EXTREMITIES: Warm and well perfused. BACK: No CVA tenderness. NEUROLOGICAL: Demented, does not follow commands or carry on a conversation. PSYCHIATRIC: normal affect. MUSCULOSKELETAL: Normally developed with good muscle tone. Medical Decision & Procedures ER Provider Diagnostic Interpretation: X ray results and stated below per my interpretation and radiology interpretation. SINGLE VIEW CHEST CLINICAL HISTORY: Fever. FINDINGS: An AP, portable, upright chest radiograph is compared to study dated 11/19/2016. The examination is degraded by portable technique and patient rotation. The heart is mildly enlarged and there is atherosclerotic calcification of the thoracic aorta. The pulmonary vasculature is noncongested. Chronic interstitial thickening is similar to previous. Minimal bibasilar atelectasis is observed. No airspace consolidation, large pleural effusion, or pneumothorax is seen. The skeletal structures are osteopenic. Degenerative change is noted in the shoulders and thoracic spine. IMPRESSION: Cardiac enlargement with no acute cardiopulmonary abnormality. Electronically signed by: Uche Figueroa M.D. 03/17/2017 3:56 PM Dictated Date/Time: 03/17/2017 3:55 PM Laboratory Results 03/17/17 15:45 Red Blood Count 4.30, Mean Corpuscular Volume 92.3, Mean Corpuscular Hemoglobin 29.3, Mean Corpuscular Hemoglobin Concent 31.7, Mean Platelet Volume 10.5, Neutrophils (%) (Auto) 64.5, Lymphocytes (%) (Auto) 23.3, Monocytes (%) (Auto) 9.8, Eosinophils (%) (Auto) 2.1, Basophils (%) (Auto) 0.2, Neutrophils # (Auto) 5.42, Lymphocytes # (Auto) 1.96, Monocytes # (Auto) 0.82, Eosinophils # (Auto) 0.18, Basophils # (Auto) 0.02 03/17/17 15:45 Test 03/17/17 15:45 White Blood Count 8.41 K/uL (4.8-10.8) Red Blood Count 4.30 M/uL (4.2-5.4) Hemoglobin 12.6 g/dL (12.0-16.0) Hematocrit 39.7 % (37-47) Mean Corpuscular Volume 92.3 fL (80-100) Mean Corpuscular Hemoglobin 29.3 pg (25-34) Mean Corpuscular Hemoglobin Concent 31.7 g/dl (32-36) Platelet Count 200 K/uL (130-400) Mean Platelet Volume 10.5 fL (7.4-10.4) Neutrophils (%) (Auto) 64.5 % Lymphocytes (%) (Auto) 23.3 % Monocytes (%) (Auto) 9.8 % Eosinophils (%) (Auto) 2.1 % Basophils (%) (Auto) 0.2 % Neutrophils # (Auto) 5.42 K/uL (1.4-6.5) Lymphocytes # (Auto) 1.96 K/uL (1.2-3.4) Monocytes # (Auto) 0.82 K/uL (0.11-0.59) Eosinophils # (Auto) 0.18 K/uL (0-0.5) Basophils # (Auto) 0.02 K/uL (0-0.2) RDW Standard Deviation 48.0 fL (36.4-46.3) RDW Coefficient of Variation 14.3 % (11.5-14.5) Immature Granulocyte % (Auto) 0.1 % Immature Granulocyte # (Auto) 0.01 K/uL (0.00-0.02) Prothrombin Time 11.5 SECONDS (9.0-12.0) Prothromb Time International Ratio 1.1 (0.9-1.1) Activated Partial Thromboplast Time 26.9 SECONDS (21.0-31.0) Partial Thromboplastin Ratio 1.0 Anion Gap 9.0 mmol/L (3-11) Est Creatinine Clear Calc Drug Dose 39.4 ml/min Estimated GFR () 47.7 Estimated GFR (Non- 41.2 BUN/Creatinine Ratio 31.1 (10-20) Calcium Level 8.6 mg/dl (8.5-10.1) Total Bilirubin 0.2 mg/dl (0.2-1) Direct Bilirubin < 0.1 mg/dl (0-0.2) Aspartate Amino Transf (AST/SGOT) 15 U/L (15-37) Alanine Aminotransferase (ALT/SGPT) 19 U/L (12-78) Alkaline Phosphatase 93 U/L (45-117) Total Creatine Kinase 42 U/L (26-192) Creatine Kinase MB 2.0 ng/ml (0.5-3.6) Creatine Kinase MB Ratio 4.8 (0-3.0) Troponin I 0.017 ng/ml (0-0.045) Total Protein 6.3 gm/dl (6.4-8.2) Albumin 3.1 gm/dl (3.4-5.0) Lipase 107 U/L (73-393) Thyroid Stimulating Hormone (TSH) 1.810 uIu/ml (0.300-4.500) Laboratory results as stated above per my review. Medications Administered Medications (Trade) Dose Ordered Sig/[place] Route Start Time Stop Time Status Last Admin Dose Admin Metoprolol Tartrate (Lopressor Iv) 5 mg NOW STAT IV 03/17/17 15:39 03/17/17 15:41 DC 03/17/17 15:52 5 MG ECG Indication: toxicologic, other (irregular heart rate and rhythm) Rate (beats per minute): 74 Rhythm: atrial flutter Findings: no acute ischemic change, no ectopy Change: Repeat EKG: atrial flutter, 75 beats per minute 3:1 conduction, no acute injury , no ectopy. ED Course 153: Previous medical records were reviewed. The patient was evaluated in room C5. A complete history and physical examination was performed. 153: Ordered Lopressor IV 5 mg IV. 1656: I reevaluated the patient and she is resting comfortably. I updated the patients family on the exam findings at this time. She is going to have a repeat EKG. 1732: I reevaluated the patient and she is doing well. I discussed all the exam findings with the patients family and I discussed the treatment plan. They verbalized complete understanding and agreement. The patient will be evaluated for further treatment. 1747: I discussed the patients case with Dr. Rowland, Cardiology at this time. 1756: I discussed the patients case with [place]. [place], [facility] She is going to evaluate the patient for further treatment. 1805: I reevaluated the patient and she is doing well. I updated the patients family on the treatment plan. They verbalized complete understanding and agreement. The patient will be evaluated for further treatment. Medical Decision Differentials considered include acute myocardial infarction, acute coronary syndrome, myocarditis, pericarditis, pericardial effusions /tamponade, esophageal perforation, thoracic aortic dissection, pulmonary embolism, pneumonia, pneumothorax, pancreatitis, shingles, acute cholecystitis, and perforated abdominal viscus. This is an 87-year-old female who presents to the ED with a chief complaint of rapid atrial flutter. The patient had a 12-lead EKG at the residential where she resides and was found to be in atrial flutter. Her heart rate was in the 130s to 160s. She was evaluated by EMS and I spoke with them in route. The patient was ordered to have 20 mg of IV Cardizem. She also received an IV fluid bolus. The patient's blood pressure improved and the heart rate decreased into the 70s upon her arrival. Her blood pressure upon arrival was 114 systolic. The patient is demented and is unable to provide any history or cooperate with exam. She does not appear to be in any distress. Review of the patient's previous 12-lead EKGs over this past year reveals that the patient appears to be chronically and a normal sinus rhythm. She does have a history of A. fib, however. She is not on anticoagulation. Physical exam was relatively unremarkable other than the irregular heart rate. Twelve-lead EKG reveals a flutter at a rate of 74. She appears to be chronically on beta blockers. She was given 5 mg of Lopressor IV. A repeat 12-lead EKG reveals continued a flutter with 31 conduction at a rate of 75. CBC was normal, complete metabolic panel was unremarkable, BUN is 37, TSH is normal, chest x- ray did not show acute disease. The patient was told the results. The family was also told the results. Because of the patient's new-onset a flutter with RVR and the fact that she does not appear to be chronically in A. fib for a flutter, the patient will be seen for further inpatient evaluation. She is not a candidate for anticoagulation due to her frequent falls. Medication Reconcilliation Current Medication List: was personally reviewed by me Blood Pressure Screening Patient's blood pressure: Normal blood pressure Blood pressure disposition: Did not require urgent referral Consults Time Called: 1736 Consulting Physician: Dr. Rowland, Cardiology Returned Call: 1756 I discussed the patients case with Dr. Rowland, Cardiology at this time. Additional Consults: Time Called: 1730 Consulted Physician: YOLI Downing Returned Call: 1805 Additional Comments: I discussed the patients case with YOLI Downing. She is going to evaluate the patient for further treatment. Impression Primary Impression: Atrial flutter Scribe Attestation The scribe's documentation has been prepared under my direction and personally reviewed by me in its entirety. I confirm that the note above accurately reflects all work, treatment, procedures, and medical decision making performed by me. Departure Information Dispostion Being Evaluated By Hospitalist Referrals Raji Lees (PCP)
[2017-03-17] MEDS ORDERED: RIVAROXABAN 20 MG TAB PO ONE (20:31)
[2017-03-17] MEDS ORDERED: ACETAMINOPHEN 325 MG TAB PO PRN (20:45)
[2017-03-17 22:01] VITALS: BP 134/78; PULSE 67; TEMP 36.9; O2SAT 96; Ht 170.2 cm; Wt 85.7 kg
[2017-03-17] MEDS ORDERED: POLYETHYLENE (MIRALAX) 17 GM PACK PO PRN (22:45)
[2017-03-17] MEDS ORDERED: NURSING VERBAL MED ORDER ONE (22:45)
[2017-03-17 22:54] VITALS: BP 138/92; PULSE 98; TEMP 36.5; O2SAT 97
[2017-03-17] MEDS: ACETAMINOPHEN 500 MG TAB PO SCH (23:25)
[2017-03-17] MEDS: RISPERIDONE 0.5 MG TAB PO SCH (23:26)
[2017-03-17] MEDS: RANITIDINE HCL 150 MG TAB PO SCH (23:26)
[2017-03-17] MEDS: METOPROLOL TARTRATE 50 MG TAB PO SCH (23:27)
[2017-03-17] MEDS: GABAPENTIN 300 MG CAP PO SCH (23:28)
[2017-03-17] MEDS: TRAZODONE HCL 50 MG TAB PO SCH (23:28)
--- NOTE | 2017-03-17 23:55 | History and Physical ---
History & Physical Date & Time of Service: Mar 17, 2017 at 23:55 Chief Complaint: Rapid Atrial Fibrillation Primary Care Physician: Raji Lees History of Present Illness Source: patient, family This patient is an 87-year-old female with a history of Parkinson's disease, dementia, paroxysmal atrial fibrillation, depression, asthma, meningioma, history of DVT and PE, hypertension, and falls, who presents from [facility] with rapid atrial flutter. The patient seemed more agitated today, and the patient's daughter reports that the PCP has been trying to control her heart rate with an increased dose of metoprolol. However, this morning on her vital signs and with EKG at the halfway, she was in rapid atrial flutter with a heart rate in the 150s. She was given Cardizem 20 mg IV 1 in the ambulance, and then Lopressor 5 mg 1 IV here in the ER. Her heart rate came down nicely to the 70s and she was in 3-1 AV block atrial flutter. The patient has severe dementia, and is unable to provide any history or answer any questions. Daughter provides as much history as she can, but is unable to tell the patient is having any symptoms other than agitation. Apparently, she was on Coumadin in the past, but the daughter cannot recall why she was taken off of it. It seems that perhaps this was because of her fall risk. The patient has no signs or history of significant bleeding, and the daughter is agreeable for the patient to go on some form of anticoagulation to prevent stroke. She does not have any ischemic changes on her ECG, and she will be admitted for improved control of her rapid atrial flutter. 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 (4) Diverticulosis Colon (W/O Ment Of Hemorrhage) Status: Chronic (5) DVT (deep venous thrombosis) Permanent Comment: completed Xarelto therapy Status: Chronic (6) Hypertension Nos Status: Chronic (7) PE (pulmonary embolism) Permanent Comment: completed Xarelto therapy Status: Chronic (8) SBO (small bowel obstruction) Permanent Comment: s/p surgical release, lysis of adhesions Depression Meningioma History of falls Past Surgical Problems: History of hemicolectomy Status: Chronic History of tonsillectomy Status: Chronic History of total bilateral knee replacement 2 on each side Status: Chronic Cholecystectomy Family History Dementia MOTHER Heart disease FATHER Social History Smoking Status: Never Smoker Alcohol Use: none Marital Status: Housing status: halfway Occupational Status: retired Immunizations History of Pneumococcal: Yes Pneumococcal Date: Oct 28, 2011 Multi-Drug Resistant Organisms History of MDRO: No Allergies Coded Allergies: Penicillins (Verified Allergy, Mild, 11/19/16) Sertraline (Unverified Allergy, Unknown, UNKNOWN, 11/19/16) Sulfa Drugs (Verified Allergy, Unknown, 11/19/16) Uncoded Allergies: human albumin (Adverse Reaction, Unknown, unknown, 01/04/16) Home Medications Scheduled Acetaminophen (Tylenol), 500 MG PO TID Cholecalciferol (Vitamin D3), 2,000 UNITS PO DAILY Escitalopram (Lexapro), 10 MG PO DAILY Gabapentin (Neurontin), 300 MG PO Q8 Metoprolol Tartrate (Lopressor) (Lopressor), 50 MG PO BID Ranitidine (Zantac), 150 MG PO QPM Risperidone (Risperdal), 0.25 MG PO QAM Risperidone (Risperdal), 0.5 MG PO HS Spironolactone (Aldactone), 25 MG PO QAM Trazodone Hcl (Trazodone), 25 MG PO HS Scheduled PRN Polyethylene Glycol 3350 (Bulk (Polyethylene Glycol 3350), 17 GM PO QAM PRN for Constipation Tramadol (Ultram), 25 MG PO Q4H PRN for Pain Review of Systems Unobtainable due to severe dementia, but daughter reports she has not noticed anything out of the ordinary other than worsening agitation being here at the hospital today Physical Exam Vital Signs Date Time Temp Pulse Resp B/P (MAP) Pulse Ox O2 Delivery O2 Flow Rate FiO2 03/17/17 22:54 36.5 98 20 138/92 (107) 97 Room Air 03/17/17 22:01 36.9 67 20 134/78 96 Room Air 03/17/17 21:10 36.9 77 20 134/78 99 03/17/17 20:43 77 20 134/78 99 Room Air 03/17/17 19:02 75 20 124/75 97 Room Air 03/17/17 18:30 90 16 127/86 03/17/17 17:15 77 20 122/79 93 Room Air 03/17/17 16:04 65 03/17/17 16:03 76 16 102/65 96 Room Air 03/17/17 15:52 74 107/54 03/17/17 15:38 97 Room Air 03/17/17 15:38 97 Room Air 03/17/17 15:38 36.9 77 16 116/76 97 Room Air General Appearance: no apparent distress (but very fidgety, grabbing at her IV and property assessment monitor leads, constantly mumbling and then intermittently falls asleep) Head: normocephalic, atraumatic Eyes: normal inspection, sclerae normal ENT: hearing grossly normal Neck: trachea midline Respiratory/Chest: lungs clear, normal breath sounds, no respiratory distress, no accessory muscle use Cardiovascular: no murmur, normal peripheral pulses, + irregularly irregular ( with normal rate) Abdomen/GI: normal bowel sounds, non tender, soft, no organomegaly Back: normal inspection Extremities/Musculoskelatal: normal inspection, no calf tenderness, normal capillary refill, no pedal edema Neurologic/Psych: alert, + disoriented, + pertinent finding (cannot follow most directions) Skin: normal color, warm/dry, no rash Diagnostics Laboratory Results Results Past 24 Hours Test 03/17/17 15:45 Range/Units White Blood Count 8.41 4.8-10.8 K/uL Red Blood Count 4.30 4.2-5.4 M/uL Hemoglobin 12.6 12.0-16.0 g/dL Hematocrit 39.7 37-47 % Mean Corpuscular Volume 92.3 80-100 fL Mean Corpuscular Hemoglobin 29.3 25-34 pg Mean Corpuscular Hemoglobin Concent 31.7 32-36 g/dl Platelet Count 200 130-400 K/uL Mean Platelet Volume 10.5 7.4-10.4 fL Neutrophils (%) (Auto) 64.5 % Lymphocytes (%) (Auto) 23.3 % Monocytes (%) (Auto) 9.8 % Eosinophils (%) (Auto) 2.1 % Basophils (%) (Auto) 0.2 % Neutrophils # (Auto) 5.42 1.4-6.5 K/uL Lymphocytes # (Auto) 1.96 1.2-3.4 K/uL Monocytes # (Auto) 0.82 0.11-0.59 K/uL Eosinophils # (Auto) 0.18 0-0.5 K/uL Basophils # (Auto) 0.02 0-0.2 K/uL RDW Standard Deviation 48.0 36.4-46.3 fL RDW Coefficient of Variation 14.3 11.5-14.5 % Immature Granulocyte % (Auto) 0.1 % Immature Granulocyte # (Auto) 0.01 0.00-0.02 K/uL Prothrombin Time 11.5 9.0-12.0 SECONDS Prothromb Time International Ratio 1.1 0.9-1.1 Activated Partial Thromboplast Time 26.9 21.0-31.0 SECONDS Partial Thromboplastin Ratio 1.0 Sodium Level 144 136-145 mmol/L Potassium Level 4.4 3.5-5.1 mmol/L Chloride Level 112 98-107 mmol/L Carbon Dioxide Level 23 21-32 mmol/L Anion Gap 9.0 3-11 mmol/L Blood Urea Nitrogen 37 7-18 mg/dl Creatinine 1.20 0.60-1.20 mg/dl Est Creatinine Clear Calc Drug Dose 39.4 ml/min Estimated GFR () 47.7 Estimated GFR (Non- 41.2 BUN/Creatinine Ratio 31.1 10-20 Random Glucose 113 70-99 mg/dl Calcium Level 8.6 8.5-10.1 mg/dl Total Bilirubin 0.2 0.2-1 mg/dl Direct Bilirubin < 0.1 0-0.2 mg/dl Aspartate Amino Transf (AST/SGOT) 15 15-37 U/L Alanine Aminotransferase (ALT/SGPT) 19 12-78 U/L Alkaline Phosphatase 93 45-117 U/L Total Creatine Kinase 42 26-192 U/L Creatine Kinase MB 2.0 0.5-3.6 ng/ml Creatine Kinase MB Ratio 4.8 0-3.0 Troponin I 0.017 0-0.045 ng/ml Total Protein 6.3 6.4-8.2 gm/dl Albumin 3.1 3.4-5.0 gm/dl Lipase 107 73-393 U/L Thyroid Stimulating Hormone (TSH) 1.810 0.300-4.500 uIu/ml Microbiology Results 03/17/17 MRSA DNA Surveillance Screen, Received Pending Diagnostic Radiology Chest x-ray no acute disease EKG ECGs both with atrial flutter with a rate in the 70s, no ischemic changes Impression Assessment and Plan This patient is an 87-year-old female with a history of Parkinson's disease, dementia, paroxysmal atrial fibrillation, depression, asthma, meningioma, history of DVT and PE, hypertension, and falls, who presents from [facility] with rapid atrial flutter after she seemed more agitated. Heart rate was noted to be in the 150s at the halfway and came down to the 70s after administration of IV Cardizem and IV Lopressor in the ambulance in the ER, respectively. She does not have any ischemic changes on her ECG, and she will be admitted for improved control of her rapid atrial flutter. Rapid atrial flutter-She was given Cardizem 20 mg IV 1 in the ambulance, and then Lopressor 5 mg 1 IV here in the ER. Her heart rate came down nicely to the 70s and she was in 3-1 AV block atrial flutter. Apparently, she was on Coumadin in the past, but the daughter cannot recall why she was taken off of it. It seems that perhaps this was because of her fall risk. The patient has no signs or history of significant bleeding, and the daughter is agreeable for the patient to go on some form of anticoagulation to prevent stroke. Daughter also reports that her metoprolol dose was recently increased. TSH here was normal. -Increased metoprolol further to 75 mg by mouth twice a day -Admit to telemetry -Start Xarelto for anticoagulation given her high stroke risk-her history of falls are not a contraindication to anticoagulation. Due to patient's severe dementia, the daughter was not too keen about the idea of frequent blood draws for PT/INRs. -Consult cardiology for further expert recommendations -Check echocardiogram for LV function and valvular disease Hypertension-stable -Continue metoprolol and Aldactone Parkinson's disease with dementia, depression, history of meningioma-all stable but her dementia is fairly advanced. She resides in the dementia unit of her halfway. -Continue Risperdal and Lexapro -We'll need one-on-one watch for safety -Supportive care Prophylaxis-Xarelto Disposition-DO NOT RESUSCITATE/DO NOT INTUBATE as discussed with the daughter who is her power of ip attorney -Back to her dementia unit when medically stable Level of Care Telemetry Advanced Directives Existing Living Will: No Existing Power of Biophysics Professor: Yes Resuscitation Status DO NOT RESUSCITATE VTE Prophylaxis VTE Risk Assessment Done? Y/N: Yes Risk Level: Low Social Service Consult Lives in Senior Living Additional Copies To Christian Linder M.D.
[2017-03-18] VITALS (7 sets, daily range): BP systolic 109–126; BP diastolic 65–86; PULSE 64–130; TEMP 35.9–36.5; O2SAT 96–97
[2017-03-18] MEDS: TRAMADOL HCL 50 MG TAB PO PRN ×2 (05:04→10:59)
[2017-03-18] MEDS: GABAPENTIN 300 MG CAP PO SCH ×3 (05:04→22:00)
[2017-03-18 06:15] LABS: BASO % 0.3 %; BASO ABS # 0.02 K/uL (0-0.2); COMPLETE YES; EOS % 3.5 %; HEMATOCRIT 38.6 % (37-47); IG% 0.2 %; LYMPH ABS # 2.28 K/uL (1.2-3.4); MEAN CELL VOLUME 91.3 fL (80-100); MEAN CORPUSCULAR HEMOGLOBIN 29.3 pg (25-34); MEAN CORPUSCULAR HGB CONC 32.1 g/dl (32-36); MEAN PLATELET VOLUME 10.5 fL (7.4-10.4); MONO % 10.9 %; NEUT % 49.1 %; PLATELET COUNT 165 K/uL (130-400); RED BLOOD COUNT 4.23 M/uL (4.2-5.4); WHITE BLOOD COUNT 6.33 K/uL (4.8-10.8)
[2017-03-18 06:46] LABS: CALCIUM 8.6 mg/dl (8.5-10.1); CREATININE 0.86 mg/dl (0.60-1.20); INR 1.1 (0.9-1.1); MAGNESIUM 2.2 mg/dl (1.8-2.4); POTASSIUM 3.9 mmol/L (3.5-5.1); PROTHROMBIN TIME (PATIENT) 11.3 SECONDS (9.0-12.0)
[2017-03-18] MEDS: ACETAMINOPHEN 500 MG TAB PO SCH ×3 (07:46→21:00)
[2017-03-18] MEDS: SPIRONOLACTONE 25 MG TAB PO SCH (07:47)
[2017-03-18] MEDS: RISPERIDONE 0.5 MG TAB PO SCH ×2 (07:47→21:00)
[2017-03-18] MEDS: METOPROLOL TARTRATE 50 MG TAB PO SCH ×2 (07:47→21:00)
[2017-03-18] MEDS: ESCITALOPRAM OXALATE 10 MG TAB PO SCH (07:47)
[2017-03-18] MEDS ORDERED: PNEUMOCOCCAL ADMINISTRATION CHARGE ONE (09:00)
[2017-03-18] MEDS ORDERED: RIVAROXABAN 20 MG TAB PO SCH (09:00)
[2017-03-18] MEDS ORDERED: PNEUMOCOCCAL POLYSACCHARIDES 25 MCG/0.5 ML VIAL/SYR IM. ONE (09:00)
--- NOTE | 2017-03-18 10:09 | CARDIOLOGY CONSULTATION ---
DATE OF CONSULTATION: 03/18/2017 DATE OF CONSULTATION: 03/18/2017 PERTINENT HISTORY: Mrs. Bernard is an 87-year-old white female admitted yesterday with atrial flutter and a rapid ventricular response. This consultation was ordered to assist in her management. Of note, patient typically followed by Dr. Wilson in the outpatient setting. The history is obtained from the chart. The patient's dementia is profound and limiting. Apparently, the patient was noted to be more agitated yesterday morning. An EKG was obtained which revealed atrial flutter with 2:1 conduction, ventricular response of 150 beats per minute. The patient was then sent to the Emergency Room. She received intravenous diltiazem and metoprolol and her heart rate improved dramatically. According to Dr. Wilson's notes, atrial fibrillation was diagnosed back in the year 2001. There has been no recurrence documented since that time. She was on Coumadin for a short period of time, however, that was discontinued due to her increased risk of falling. The patient did have a 6-month course of Xarelto back in 2013 when she developed a DVT and resultant pulmonary embolism. She tolerated that medication without difficulty. Currently, the patient is resting comfortably in bed without complaints. She specifically denies chest pain, dyspnea, or palpitations. PAST MEDICAL HISTORY: 1. Hypertension. 2. Paroxysmal atrial fibrillation -- 2001. 3. COPD. 4. History of DVT/PE -- 2013 -- 6 months of Xarelto. 5. Parkinson's disease. 6. Dementia. 7. Depression. 8. Diverticulosis. 9. History of small-bowel obstruction. 10. GERD. 11. Bilateral TKR. 12. Cholecystectomy. 13. Mild aortic insufficiency. 14. Mild tricuspid regurgitation. 15. Vitamin D deficiency. MEDICATIONS: 1. Metoprolol tartrate 75 mg b.i.d. 2. Spironolactone 25 mg per day. 3. Zantac 150 mg per day. 4. Lexapro 10 mg daily. 5. Risperdal 0.25 mg q.a.m. and 0.5 mg q.p.m. 6. Neurontin 300 mg t.i.d. 7. Desyrel 25 mg at bedtime. 8. Toprol 5 mg t.i.d. ALLERGIES: 1. PENICILLIN. 2. SULFA. 3. SERTRALINE. 4. HUMAN ALBUMIN. SOCIAL HISTORY: The patient is a . She currently resides at [facility]. Does not use tobacco or alcohol. FAMILY HISTORY: Noncontributory. REVIEW OF SYSTEMS: Unobtainable. PHYSICAL EXAMINATION: GENERAL: This is a well-developed, well-nourished elderly white female lying supine in bed without complaints. VITAL SIGNS: Blood pressure 121/79 with an irregular pulse of 64. Respiratory rate is 18. The patient is afebrile at 37.0 degrees Celsius. Saturation 97% on room air. HEAD, EYES, EARS, NOSE, AND THROAT EXAMINATION: Negative. NECK: Supple with full carotid upstrokes. No carotid bruits. Jugular venous pressure is flat at 90 degrees. There is no thyromegaly. CARDIOVASCULAR EXAMINATION: Reveals an irregular rhythm with distant heart sounds. No obvious murmurs. No S3. LUNGS: Clear without rales, rhonchi, or wheezes. ABDOMEN: Obese without bruits. EXTREMITIES: Reveal intact radial artery pulses bilaterally. Trace pretibial edema is noted. LABORATORY DATA: CBC notes hemoglobin 12.4, hematocrit 38.6, white count 6.3, platelet count 165,000. Electrolytes note a sodium of 143, potassium 3.9, chloride 112, bicarb 23, BUN 30, creatinine 0.8, glucose 94. Troponin I levels are negative at 0.016 and 0.017. CK is 42 with an MB fraction of 2.0. Magnesium level is normal at 2.2. TSH is normal at 1.81. Chest x-ray notes cardiomegaly but no failure. EKG notes atrial flutter with a variable ventricular response. There is a nonspecific ST abnormality. city planner confirms the same. Ventricular response now adequately controlled. IMPRESSION: Mrs. Bernard was admitted with atrial flutter and rapid ventricular response. It appears that she may have converted to atrial fibrillation by the monitor this morning. As we are uncertain as to the duration of her dysrhythmia, it would be unadvisable to start an antiarrhythmic at this time. I agree with use of an anticoagulant. She tolerated Xarelto in 2013, and therefore, this may be a good choice. We will discuss her case further with Dr. Wilson. PLAN: 1. Agree with initiating anticoagulant, Xarelto may be preferable as she tolerated this previously. 2. Discuss fall risk with Dr. Wilson. 3. Further recommendations depending on her clinical course.
[2017-03-18] MEDS ORDERED: ENOXAPARIN 40 MG/0.4 ML SYR SQ SCH (16:00)
[2017-03-18] MEDS ORDERED: DILTIAZEM HCL 30 MG TAB PO ONE (18:15)
--- NOTE | 2017-03-18 18:25 | Hospitalist Progress Note ---
Hospitalist Progress Note Date of Service Mar 18, 2017. Subjective Pt evaluation today including: conversation w/ patient, conversation w/ family , conversation w/ residential solar sales consultant (Cardiology) Pt unable to tell me anything. Has been pulling at things, requiring a 1:1. Remains fairly well rate controlled today. Additional Comments: unobtainable due to dementia Objective Vital Signs Date Time Temp Pulse Resp B/P (MAP) Pulse Ox O2 Delivery O2 Flow Rate FiO2 03/18/17 12:10 Room Air 03/18/17 11:28 36.2 93 16 109/70 (83) 97 Room Air 03/18/17 08:00 Room Air 03/18/17 08:00 97 Room Air 03/18/17 07:50 35.9 64 18 121/79 (93) 97 Room Air 03/18/17 04:00 Room Air 03/17/17 23:59 Room Air 03/17/17 22:54 36.5 98 20 138/92 (107) 97 Room Air 03/17/17 22:01 36.9 67 20 134/78 96 Room Air 03/17/17 21:10 36.9 77 20 134/78 99 03/17/17 20:43 77 20 134/78 99 Room Air 03/17/17 19:02 75 20 124/75 97 Room Air 03/17/17 18:30 90 16 127/86 03/17/17 17:15 77 20 122/79 93 Room Air 03/17/17 16:04 65 03/17/17 16:03 76 16 102/65 96 Room Air 03/17/17 15:52 74 107/54 03/17/17 15:38 97 Room Air 03/17/17 15:38 97 Room Air 03/17/17 15:38 36.9 77 16 116/76 97 Room Air Physical Exam General Appearance: no apparent distress (sitting in bed, repetitive moaning, anxious -appearing) Eyes: normal inspection, sclerae normal ENT: hearing grossly normal Neck: trachea midline Respiratory/Chest: lungs clear, normal breath sounds, no respiratory distress, no accessory muscle use Cardiovascular: no edema, no gallop, no murmur, + irregularly irregular (with normal rate) Abdomen: normal bowel sounds, non tender, soft Extremities: normal inspection, no pedal edema, no calf tenderness Neurologic/Psychiatric: alert, + disoriented Skin: normal color, warm/dry, no rash Laboratory Results Last 24 Hours Test 03/17/17 15:45 03/18/17 05:41 White Blood Count 8.41 K/uL 6.33 K/uL Red Blood Count 4.30 M/uL 4.23 M/uL Hemoglobin 12.6 g/dL 12.4 g/dL Hematocrit 39.7 % 38.6 % Mean Corpuscular Volume 92.3 fL 91.3 fL Mean Corpuscular Hemoglobin 29.3 pg 29.3 pg Mean Corpuscular Hemoglobin Concent 31.7 g/dl 32.1 g/dl Platelet Count 200 K/uL 165 K/uL Mean Platelet Volume 10.5 fL 10.5 fL Neutrophils (%) (Auto) 64.5 % 49.1 % Lymphocytes (%) (Auto) 23.3 % 36.0 % Monocytes (%) (Auto) 9.8 % 10.9 % Eosinophils (%) (Auto) 2.1 % 3.5 % Basophils (%) (Auto) 0.2 % 0.3 % Neutrophils # (Auto) 5.42 K/uL 3.11 K/uL Lymphocytes # (Auto) 1.96 K/uL 2.28 K/uL Monocytes # (Auto) 0.82 K/uL 0.69 K/uL Eosinophils # (Auto) 0.18 K/uL 0.22 K/uL Basophils # (Auto) 0.02 K/uL 0.02 K/uL RDW Standard Deviation 48.0 fL 46.7 fL RDW Coefficient of Variation 14.3 % 14.1 % Immature Granulocyte % (Auto) 0.1 % 0.2 % Immature Granulocyte # (Auto) 0.01 K/uL 0.01 K/uL Prothrombin Time 11.5 SECONDS 11.3 SECONDS Prothromb Time International Ratio 1.1 1.1 Activated Partial Thromboplast Time 26.9 SECONDS Partial Thromboplastin Ratio 1.0 Sodium Level 144 mmol/L 143 mmol/L Potassium Level 4.4 mmol/L 3.9 mmol/L Chloride Level 112 mmol/L 112 mmol/L Carbon Dioxide Level 23 mmol/L 23 mmol/L Anion Gap 9.0 mmol/L 8.0 mmol/L Blood Urea Nitrogen 37 mg/dl 30 mg/dl Creatinine 1.20 mg/dl 0.86 mg/dl Est Creatinine Clear Calc Drug Dose 39.4 ml/min 54.0 ml/min Estimated GFR () 47.7 71.4 Estimated GFR (Non- 41.2 61.6 BUN/Creatinine Ratio 31.1 35.0 Random Glucose 113 mg/dl 94 mg/dl Calcium Level 8.6 mg/dl 8.6 mg/dl Total Bilirubin 0.2 mg/dl Direct Bilirubin < 0.1 mg/dl Aspartate Amino Transf (AST/SGOT) 15 U/L Alanine Aminotransferase (ALT/SGPT) 19 U/L Alkaline Phosphatase 93 U/L Total Creatine Kinase 42 U/L Creatine Kinase MB 2.0 ng/ml Creatine Kinase MB Ratio 4.8 Troponin I 0.017 ng/ml 0.016 ng/ml Total Protein 6.3 gm/dl Albumin 3.1 gm/dl Lipase 107 U/L Thyroid Stimulating Hormone (TSH) 1.810 uIu/ml Magnesium Level 2.2 mg/dl Assessment and Plan This patient is an 87-year-old female with a history of Parkinson's disease, dementia, paroxysmal atrial fibrillation, depression, asthma, meningioma, history of DVT and PE, hypertension, and falls, who presents from [facility] with rapid atrial flutter after she seemed more agitated. Heart rate was noted to be in the 150s at the detention and came down to the 70s after administration of IV Cardizem and IV Lopressor in the ambulance in the ER, respectively. She does not have any ischemic changes on her ECG, and she will be admitted for improved control of her rapid atrial flutter. Rapid atrial flutter-She was given Cardizem 20 mg IV 1 in the ambulance, and then Lopressor 5 mg 1 IV here in the ER. Her heart rate came down nicely to the 70s and she was in 3-1 AV block atrial flutter. Apparently, she was on Coumadin in the past, but the daughter cannot recall why she was taken off of it. It seems that perhaps this was because of her fall risk. The patient has no signs or history of significant bleeding, and the daughter is agreeable for the patient to go on some form of anticoagulation to prevent stroke. Daughter also reports that her metoprolol dose was recently increased. TSH here was normal. Rates improved on metoprolol higher dose po. Apparently daughter refused AC last evening until further thought given due to fall risk. -continue metoprolol 75 mg by mouth twice a day -continue telemetry -would recommend starting Xarelto for anticoagulation given her high stroke risk -her history of falls are not a contraindication to anticoagulation-will d/w Cardiology and daughter again today -Consult cardiology appreciated -ECHo done but not read yet-will f/u Hypertension-controlled BPs -Continue metoprolol and Aldactone Parkinson's disease with dementia, depression, history of meningioma-all stable but her dementia is fairly advanced. She resides in the dementia unit of her detention. -Continue Risperdal and Lexapro -We'll need one-on-one watch for safety -Supportive care Prophylaxis-will give Lovenox SQ until hopefully starts Xarelto Disposition-DO NOT RESUSCITATE/DO NOT INTUBATE as discussed with the daughter who is her power of commercial attorney -Back to her dementia unit when medically stable-probably tomorrow
--- NOTE | 2017-03-18 19:21 | ECHOCARDIOGRAM REPORT ---
*NOTICE TO RECEIVING REPUBLICAN AGENCY This information is strictly Confidential and protected under [place] law. [place] law prohibits you from making any further disclosure of this information unless further disclosure is expressly permitted by the written consent of the person to whom it pertains or is authorized by law. A general authorization for the release of medical or other information is not sufficient for this purpose. Hospital accepts no responsibility if the information is made available to any other person, INCLUDING THE PATIENT. Interpretation Summary * Name: GALINA COOLEY Study Date: 03/18/2017 06:56 AM BP: 138/92 mmHg * Patient Location: C.2T\S\S229\S\1 HR: 99 * : 1930 (M/d/yyy) Gender: Female Height: 67 in * Age: 87 yrs Ethnicity: [place] Weight: 197 lb * Ordering Physician: Rosalva Harding * Referring Physician: Raji Lees * Performed By: Erika Hartman RCS * * Reason For Study: A-FLUTTER * BSA: 2.0 m2 * Normal left ventricular systolic function. * Moderate concentric left ventricular hypertrophy. * Mild right ventricular dilatation. * Mild right ventricular systolic dysfunction. * Moderate biatrial dilatation. * Milld aortic regurgitation. * Mild to moderate pulmonic regurgitation. * Moderate mitral and tricuspid regurgitaion. * Mildly elevated right ventricular sytolic pressure. * -- Conclusions -- * Aortic valve sclerosis moderate, without significant aortic valvular stenosis. Procedure Details * A complete two-dimensional transthoracic echocardiogram was performed (2D, M-mode, Doppler and color flow Doppler). * There were technical limitations due to patient'sinability to cooperate Left Ventricle * The left ventricle is normal in size. * There is moderate concentric left ventricular hypertrophy. * Left ventricular systolic function is low normal. * Ejection Fraction = 50-55%. * No regional wall motion abnormalities noted. Right Ventricle * The right ventricle is mildly dilated. * The right ventricular systolic function is mildly reduced. Atria * The left atrium is moderately dilated. * The right atrium is mild to moderately dilated. * There is no evidence of atrial septal defect, but resolution does not allow assessment for a patent foramen ovale. Mitral Valve * There is moderate mitral annular calcification. * Calcified mitral apparatus. * There is no mitral valve stenosis. * There is moderate mitral regurgitation. Tricuspid Valve * The tricuspid valve is not well visualized, but is grossly normal. * There is no tricuspid stenosis. * There is moderate tricuspid regurgitation. * Right ventricular systolic pressure is elevated at 30-40mmHg. Aortic Valve * The aortic valve is trileaflet. * Aortic valve sclerosis moderate, without significant aortic valvular stenosis. * Aortic stenosis is absent. * Mild aortic regurgitation. Pulmonic Valve * The pulmonic valve is not well visualized. * The pulmonary valve is inadequately visualized, but the Doppler data is adequate for interpretation. * There is no pulmonic valvular stenosis. * Mild to moderate pulmonic valvular regurgitation. Great Vessels * The aortic root is normal size. Pericardium/Pleural * There is no pericardial effusion. Great Vessels * Inferior vena cava not visualized. MMode 2D Measurements and Calculations IVSd 1.5 cm IVSs 1.8 cm LVIDd 4.0 cm LVIDs 2.9 cm LVPWd 1.5 cm LVPWs 1.7 cm IVS/LVPW 1.0 FS 26.6 % EDV(Teich) 70.2 ml ESV(Teich) 33.3 ml EF(Teich) 52.6 % EDV(cubed) 64.2 ml ESV(cubed) 25.4 ml EF(cubed) 60.5 % % IVS thick 20.8 % % LVPW thick 15.1 % LV mass(C)d 227.4 grams LV mass(C)dI 113.2 grams/m\S\2 LV mass(C)s 199.8 grams LV mass(C)sI 99.5 grams/m\S\2 SV(Teich) 36.9 ml SI(Teich) 18.4 ml/m\S\2 SV(cubed) 38.8 ml SI(cubed) 19.3 ml/m\S\2 Ao root diam 3.4 cm Ao root area 8.8 cm\S\2 LVOT diam 1.8 cm LVOT area 2.6 cm\S\2 Doppler Measurements and Calculations MV E max filiberto 153.7 cm/sec MV A max filiberto 133.7 cm/sec MV E/A 1.1 MV P1/2t max filiberto 178.9 cm/sec MV P1/2t 55.0 msec MVA(P1/2t) 4.0 cm\S\2 MV dec slope 953.4 cm/sec\S\2 MV dec time 0.14 sec Ao V2 max 117.8 cm/sec Ao max PG 5.5 mmHg Ao max PG (full) 1.6 mmHg JENELLE(V,A) 2.2 cm\S\2 JENELLE(V,D) 2.2 cm\S\2 AI max filiberto 255.5 cm/sec AI max PG 26.1 mmHg AI dec slope 157.6 cm/sec\S\2 AI P1/2t 474.9 msec LV V1 max PG 4.0 mmHg LV V1 max 99.8 cm/sec MR max filiberto 412.6 cm/sec MR max PG 68.8 mmHg TR max filiberto 272.2 cm/sec
[2017-03-18] MEDS: RANITIDINE HCL 150 MG TAB PO SCH (21:00)
[2017-03-18] MEDS: TRAZODONE HCL 50 MG TAB PO SCH (21:00)
[2017-03-19 04:10] VITALS: BP 113/76; PULSE 120; TEMP 36.4; O2SAT 91
[2017-03-19] MEDS: GABAPENTIN 300 MG CAP PO SCH ×3 (05:59→21:00)
[2017-03-19 06:58] LABS: BASO % 0.2 %; BASO ABS # 0.02 K/uL (0-0.2); COMPLETE YES; EOS % 2.4 %; HEMATOCRIT 39.6 % (37-47); IG% 0.2 %; LYMPH % 25.1 %; LYMPH ABS # 2.02 K/uL (1.2-3.4); MEAN CELL VOLUME 90.6 fL (80-100); MEAN CORPUSCULAR HEMOGLOBIN 28.8 pg (25-34); MEAN CORPUSCULAR HGB CONC 31.8 g/dl (32-36); MEAN PLATELET VOLUME 10.8 fL (7.4-10.4); MONO % 9.8 %; NEUT % 62.3 %; PLATELET COUNT 192 K/uL (130-400); RED BLOOD COUNT 4.37 M/uL (4.2-5.4); WHITE BLOOD COUNT 8.06 K/uL (4.8-10.8)
[2017-03-19 07:08] LABS: INR 1.1 (0.9-1.1); PROTHROMBIN TIME (PATIENT) 11.3 SECONDS (9.0-12.0)
[2017-03-19 07:21] VITALS: BP 104/65; PULSE 122; TEMP 36.5; O2SAT 96
[2017-03-19 07:24] LABS: CALCIUM 8.8 mg/dl (8.5-10.1); CREATININE 0.81 mg/dl (0.60-1.20); MAGNESIUM 1.9 mg/dl (1.8-2.4); POTASSIUM 3.9 mmol/L (3.5-5.1)
[2017-03-19] MEDS: TRAMADOL HCL 50 MG TAB PO PRN (07:41)
[2017-03-19] MEDS: ESCITALOPRAM OXALATE 10 MG TAB PO SCH (07:41)
[2017-03-19] MEDS: RISPERIDONE 0.5 MG TAB PO SCH ×2 (07:42→21:00)
[2017-03-19] MEDS: ACETAMINOPHEN 500 MG TAB PO SCH ×3 (07:42→21:03)
[2017-03-19] MEDS: METOPROLOL TARTRATE 50 MG TAB PO SCH ×2 (07:43→21:02)
[2017-03-19] MEDS: SPIRONOLACTONE 25 MG TAB PO SCH (07:43)
--- NOTE | 2017-03-19 09:47 | CARDIOLOGY PROGRESS NOTE ---
DATE: 03/19/2017 DATE: 03/19/2017 SUBJECTIVE: Mrs. Bernard is resting in bed complaining of arm discomfort. She is moaning continuously. OBJECTIVE: VITAL SIGNS: Blood pressure is 110/76 with an irregular pulse of 100-120. Respiratory rate is 22. The patient is afebrile at 36.5 degrees Celsius. Saturations 96% on room air. NECK: Supple with full carotid upstrokes. No obvious bruits. Jugular venous pressure is flat at 90 degrees. There is no thyromegaly. CARDIOVASCULAR EXAMINATION: Reveals an irregularly irregular rhythm with distant heart sounds. No obvious murmurs. LUNGS: Clear without rales, rhonchi, or wheezes. ABDOMEN: Obese without bruits. EXTREMITIES: Reveal intact radial artery pulses bilaterally. Trace pretibial edema is noted. LABORATORY DATA: CBC notes hemoglobin of 12.6, hematocrit 39.6, white count 8.0, platelet count 192,000. Electrolytes note a sodium of 141, potassium 3.9, chloride 109, bicarb 26, BUN 23, creatinine 0.8, glucose 89. EKG notes atrial flutter with variable AV block. There are nonspecific ST and T-wave abnormality. procurement clerk noted an adequate heart rate control yesterday, however has increased often at times of agitation. IMPRESSION AND PLAN: 1. Paroxysmal atrial fibrillation/flutter, the patient is tolerating increased dose of metoprolol and has received 1 dose of oral diltiazem. Could consider initiation of intravenous followed by oral digoxin. Remains on Lovenox at 40 mg subQ daily. Have considered use of amiodarone, however, the duration of her dysrhythmia prior to presentation is unknown. 2. Normal left ventricular systolic function. 3. Moderate mitral and tricuspid regurgitation. 4. Mild aortic insufficiency. 5. Hypertension -- controlled. 6. Chronic obstructive pulmonary disease. 7. Severe dementia.
[2017-03-19 11:00] VITALS: BP 109/68; PULSE 99; TEMP 36.6; O2SAT 95
--- NOTE | 2017-03-19 13:57 | Hospitalist Progress Note ---
Hospitalist Progress Note Date of Service Mar 19, 2017. Subjective Pt evaluation today including: conversation w/ patient, conversation w/ family (son Ed-had 20 min phone conversation about risks/benefits/SEs of anticoagulation for CVA prevention) Tachy overnight to 120s-150s, but then as of 10 AM rates down to 70s and staying down, remains in A-flutter. Pt much more mentally clear today and calm although she was agitated earlier today. Denies any pain, is ania po All Other Systems: Reviewed and Negative Objective Vital Signs Date Time Temp Pulse Resp B/P (MAP) Pulse Ox O2 Delivery O2 Flow Rate FiO2 03/19/17 12:09 Room Air 03/19/17 11:00 36.6 99 18 109/68 (82) 95 03/19/17 08:00 Room Air 03/19/17 07:21 36.5 122 22 104/65 (78) 96 Room Air 03/19/17 04:21 Room Air 03/19/17 04:10 36.4 120 18 113/76 (88) 91 Room Air 03/18/17 23:45 Room Air 03/18/17 23:26 36.5 99 16 126/86 (99) 97 Room Air 03/18/17 20:01 Room Air 03/18/17 20:01 97 Room Air 03/18/17 19:27 36.3 130 18 112/68 (83) 96 03/18/17 16:12 Room Air 03/18/17 15:18 36.4 78 18 114/65 (81) 97 Room Air Physical Exam General Appearance: WD/WN, no apparent distress Eyes: normal inspection, sclerae normal ENT: hearing grossly normal Neck: trachea midline Respiratory/Chest: lungs clear, normal breath sounds, no respiratory distress, no accessory muscle use Cardiovascular: no edema, no murmur, + irregularly irregular (with normal rate) Abdomen: normal bowel sounds, non tender, soft Extremities: non-tender, normal inspection, no pedal edema Neurologic/Psychiatric: no motor/sensory deficits, alert, + pertinent finding ( oriented to person and town) Skin: normal color, warm/dry, no rash Laboratory Results Last 24 Hours Test 03/19/17 05:49 03/19/17 06:00 Prothrombin Time 11.3 SECONDS Prothromb Time International Ratio 1.1 Sodium Level 141 mmol/L Potassium Level 3.9 mmol/L Chloride Level 109 mmol/L Carbon Dioxide Level 26 mmol/L Anion Gap 6.0 mmol/L Blood Urea Nitrogen 23 mg/dl Creatinine 0.81 mg/dl Est Creatinine Clear Calc Drug Dose 57.1 ml/min Estimated GFR () 76.8 Estimated GFR (Non- 66.2 BUN/Creatinine Ratio 28.0 Random Glucose 89 mg/dl Calcium Level 8.8 mg/dl Magnesium Level 1.9 mg/dl White Blood Count 8.06 K/uL Red Blood Count 4.37 M/uL Hemoglobin 12.6 g/dL Hematocrit 39.6 % Mean Corpuscular Volume 90.6 fL Mean Corpuscular Hemoglobin 28.8 pg Mean Corpuscular Hemoglobin Concent 31.8 g/dl Platelet Count 192 K/uL Mean Platelet Volume 10.8 fL Neutrophils (%) (Auto) 62.3 % Lymphocytes (%) (Auto) 25.1 % Monocytes (%) (Auto) 9.8 % Eosinophils (%) (Auto) 2.4 % Basophils (%) (Auto) 0.2 % Neutrophils # (Auto) 5.02 K/uL Lymphocytes # (Auto) 2.02 K/uL Monocytes # (Auto) 0.79 K/uL Eosinophils # (Auto) 0.19 K/uL Basophils # (Auto) 0.02 K/uL RDW Standard Deviation 45.4 fL RDW Coefficient of Variation 13.7 % Immature Granulocyte % (Auto) 0.2 % Immature Granulocyte # (Auto) 0.02 K/uL Assessment and Plan This patient is an 87-year-old female with a history of Parkinson's disease, dementia, paroxysmal atrial fibrillation, depression, asthma, meningioma, history of DVT and PE, hypertension, and falls, who presents from [facility] with rapid atrial flutter after she seemed more agitated. Heart rate was noted to be in the 150s at the residential and came down to the 70s after administration of IV Cardizem and IV Lopressor in the ambulance in the ER, respectively. She does not have any ischemic changes on her ECG, and she will be admitted for improved control of her rapid atrial flutter. Rapid atrial flutter/Chronic Right sided systolic CHF/Mild AI/Mod MR-She was given Cardizem 20 mg IV 1 in the ambulance, and then Lopressor 5 mg 1 IV here in the ER. Her heart rate came down nicely to the 70s and she was in 3-1 AV block atrial flutter. Apparently, she was on Coumadin in the past, but the daughter cannot recall why she was taken off of it. It seems that perhaps this was because of her fall risk. The patient has no signs or history of significant bleeding, and the daughter and son are now in agreement to start anticoagulation to prevent stroke with coumadin. They like the reversibility of coumadin and state that pt does well with blood draws [id number] score high with risk 7.2% per yr of CVA and ATRIA bleeding risk low at 0.76% annually. TSH here was normal. Rates improved on metoprolol higher dose po. ECHO with: * Normal left ventricular systolic function. * Moderate concentric left ventricular hypertrophy. * Mild right ventricular dilatation. * Mild right ventricular systolic dysfunction. * Moderate biatrial dilatation. * Mild aortic regurgitation. * Mild to moderate pulmonic regurgitation. * Moderate mitral and tricuspid regurgitaion. * Mildly elevated right ventricular sytolic pressure. * -- Conclusions -- * Aortic valve sclerosis moderate, without significant aortic valvular stenosis. -continue metoprolol 75 mg by mouth twice a day -add digoxin if rates uncontrolled again -no antiarrhythmic being considered at this time as per Cardio -continue telemetry monitoring -start coumadin and follow INR -Consult cardiology appreciated Hypertension-controlled BPs -Continue metoprolol and Aldactone Parkinson's disease with dementia, depression, history of meningioma-all stable but her dementia is fairly advanced. She resides in the dementia unit of her residential. -Continue Risperdal and Lexapro -continue one-on-one watch for safety -Supportive care Prophylaxis-coumadin, stop Lovenox Disposition-DO NOT RESUSCITATE/DO NOT INTUBATE as discussed with the daughter who is her power of assembler installer general -Back to her dementia unit when medically stable-probably tomorrow
[2017-03-19 15:39] VITALS: BP 132/74; PULSE 78; TEMP 36.5; O2SAT 98
[2017-03-19] MEDS: WARFARIN SOD 5 MG TAB PO SCH (16:42)
[2017-03-19 19:33] VITALS: BP 140/78; PULSE 74; TEMP 36.4; O2SAT 95
[2017-03-19] MEDS: RANITIDINE HCL 150 MG TAB PO SCH (21:00)
[2017-03-19] MEDS: TRAZODONE HCL 50 MG TAB PO SCH (21:01)
[2017-03-19 23:16] VITALS: BP 122/74; PULSE 50; TEMP 36.4; O2SAT 96
[2017-03-20 04:42] VITALS: BP 126/81; PULSE 67; TEMP 36.1; O2SAT 98
[2017-03-20] MEDS: GABAPENTIN 300 MG CAP PO SCH ×2 (06:07→14:14)
[2017-03-20 06:28] LABS: BASO % 0.5 %; BASO ABS # 0.03 K/uL (0-0.2); COMPLETE YES; EOS % 3.2 %; HEMATOCRIT 41.2 % (37-47); IG% 0.2 %; LYMPH % 38.7 %; LYMPH ABS # 2.41 K/uL (1.2-3.4); MEAN CELL VOLUME 90.5 fL (80-100); MEAN PLATELET VOLUME 10.4 fL (7.4-10.4); MONO % 10.4 %; PLATELET COUNT 191 K/uL (130-400); RED BLOOD COUNT 4.55 M/uL (4.2-5.4); WHITE BLOOD COUNT 6.23 K/uL (4.8-10.8)
[2017-03-20 06:40] VITALS: BP 118/79; PULSE 64; TEMP 36.9; O2SAT 96
[2017-03-20 07:02] LABS: BUN/CREATININE RATIO 26.8 (10-20); CALCIUM 8.9 mg/dl (8.5-10.1); CREATININE 0.85 mg/dl (0.60-1.20); MAGNESIUM 2.1 mg/dl (1.8-2.4); POTASSIUM 4.2 mmol/L (3.5-5.1)
[2017-03-20 07:13] VITALS: BP 113/75; PULSE 94; TEMP 36.4; O2SAT 94
[2017-03-20 07:13] LABS: INR 1.1 (0.9-1.1); PROTHROMBIN TIME (PATIENT) 12.2 SECONDS (9.0-12.0)
[2017-03-20] MEDS: ESCITALOPRAM OXALATE 10 MG TAB PO SCH (08:51)
[2017-03-20] MEDS: METOPROLOL TARTRATE 50 MG TAB PO SCH (08:52)
[2017-03-20] MEDS: ACETAMINOPHEN 500 MG TAB PO SCH ×2 (08:53→14:14)
[2017-03-20] MEDS: RISPERIDONE 0.5 MG TAB PO SCH (08:54)
[2017-03-20] MEDS: SPIRONOLACTONE 25 MG TAB PO SCH (08:55)
--- NOTE | 2017-03-20 09:22 | CARDIOLOGY PROGRESS NOTE ---
DATE: 03/20/2017 SUBJECTIVE: Mrs. Bernard is resting comfortably in bed without complaints. OBJECTIVE: VITAL SIGNS: Blood pressure 118/79 with a regular pulse of 64. Respiratory rate is 18. The patient is afebrile at 36.9 degrees Celsius. Saturation 96% on room air. NECK: Supple with full carotid upstrokes. There are no carotid bruits. Jugular venous pressure is flat at 90 degrees. There is no thyromegaly. CARDIOVASCULAR: Reveals a regular rhythm with distant heart sounds. No obvious murmurs. LUNGS: Clear without rales, rhonchi or wheezes. ABDOMEN: Obese without bruits. EXTREMITIES: Reveal intact radial artery pulses bilaterally. Trace pretibial edema is noted. DATA: CBC notes hemoglobin of 13.2, hematocrit 41.2, white count 6.2, platelet count 191,000. Electrolytes note sodium of 142, potassium 4.2, chloride 111, bicarbonate 24, BUN 23, creatinine 0.85, glucose 83. monitoring tech notes atrial flutter with a variable ventricular response. Heart rate now better controlled following a dose of oral diltiazem. IMPRESSION AND PLAN: 1. Paroxysmal atrial fibrillation/flutter -- heart rate now better controlled after a dose of oral diltiazem. May consider adding low-dose long-acting diltiazem (diltiazem XR 120 mg daily) if necessary. Remains on Lovenox. As before, amiodarone has been considered; however, duration of her dysrhythmia is unknown. 2. Normal left ventricular systolic function. 3. Moderate mitral and tricuspid regurgitation. 4. Mild aortic insufficiency. 5. Hypertension -- controlled. 6. Chronic obstructive pulmonary disease. 7. Severe dementia.
[2017-03-20 11:07] VITALS: BP 100/68; PULSE 50; TEMP 36.4; O2SAT 98
[2017-03-20] MEDS: TRAMADOL HCL 50 MG TAB PO PRN (11:27)
[2017-03-20] MEDS ORDERED: DILTIAZEM HCL 120 MG ER CAP PO ONE (13:45)
[2017-03-20] MEDS ORDERED: CMD5 PO (13:51)
[2017-03-20] MEDS ORDERED: DLCSR120 PO (13:51)
[2017-03-20] MEDS ORDERED: METO50TA16 PO (13:51)
[2017-03-20] MEDS ORDERED: TRAM-10 PO (13:51)
--- NOTE | 2017-03-20 13:59 | Discharge Instructions ---
Discharge Instructions Date of Service Mar 20, 2017. Admission Reason for Admission: Rapid Atrial Flutter Discharge Discharge Diagnosis / Problem: Rapid atrial flutter Discharge Goals Goal(s): Improve disease control, Diagnostic testing, Therapeutic intervention Activity Recommendations Activity Level: Assistance Required Therapies: Physical Therapy, Occupational Therapy . Additional Information Patient informed of condition: Yes Advance Directives: Yes DNR: Yes Level of Care: Skilled Communicable Disease: No Prognosis: Improving Lloyd Catheter: No Instructions / Follow-Up Instructions / Follow-Up This patient is an 87-year-old female with a history of Parkinson's disease, dementia, paroxysmal atrial fibrillation, depression, asthma, meningioma, history of DVT and PE, hypertension, and falls, who presents from [facility] with rapid atrial flutter after she seemed more agitated. Heart rate was noted to be in the 150s at the intermediate and came down to the 70s after administration of IV Cardizem and IV Lopressor in the ambulance in the ER, respectively. She does not have any ischemic changes on her ECG, and she was admitted for improved control of her rapid atrial flutter. Rapid atrial flutter/Chronic Right sided systolic CHF/Mild AI/Mod MR-She was given Cardizem 20 mg IV 1 in the ambulance, and then Lopressor 5 mg 1 IV here in the ER. Her heart rate came down nicely to the 70s and she was in 3-1 AV block atrial flutter. Apparently, she was on Coumadin in the past, but the daughter cannot recall why she was taken off of it. It seems that perhaps this was because of her fall risk. The patient has no signs or history of significant bleeding, and the daughter and son are now in agreement to start anticoagulation to prevent stroke with coumadin. They like the reversibility of coumadin and state that pt does well with blood draws [id number] score high with risk 7.2% per yr of CVA and ATRIA bleeding risk low at 0.76% annually. TSH here was normal. Rates improved on metoprolol higher dose po, but still in high 90s at rest. ECHO with: * Normal left ventricular systolic function. * Moderate concentric left ventricular hypertrophy. * Mild right ventricular dilatation. * Mild right ventricular systolic dysfunction. * Moderate biatrial dilatation. * Mild aortic regurgitation. * Mild to moderate pulmonic regurgitation. * Moderate mitral and tricuspid regurgitaion. * Mildly elevated right ventricular sytolic pressure. * -- Conclusions -- * Aortic valve sclerosis moderate, without significant aortic valvular stenosis. -continue metoprolol 75 mg by mouth twice a day -added on Diltiazem ER 120mg po daily on day of discharge -no antiarrhythmic being considered at this time as per Cardio -started coumadin 5 mg qPM and follow INR in 1 day at [facility] -INR on 03/20 was 1.1 after 1 dose of coumadin -Consult cardiology appreciated Hypertension-controlled BPs -Continue metoprolol and Aldactone -adding on diltiazem as above Parkinson's disease with dementia, depression, history of meningioma-all stable but her dementia is fairly advanced. She resides in the dementia unit of her intermediate. -Continue Risperdal and Lexapro -Supportive care Prophylaxis-coumadin Disposition-DO NOT RESUSCITATE/DO NOT INTUBATE as discussed with the daughter who is her power of pulp mill team leader Discharge to [facility] today Current Hospital Diet Patient's current hospital diet: AHA Diet (Heart Healthy) Discharge Diet Recommended Diet: AHA Diet (Heart Healthy) Procedures Procedures Performed: Echocardiogram Chest xray Pending Studies Studies pending at discharge: no Physician Orders On Transfer Special Precautions: Fall risk Dressing Changes: N/A IV Therapy: None Vital Signs: Routine Weigh: Routine Additional Orders: Check PT/INR in 1 day on 03/21/17 and adjust coumadin as needed for goal INR between 2-3 POLST Discussion: with POLST completion (already completed previously) Laboratory Results Last 24 Hours Test 03/20/17 05:23 White Blood Count 6.23 K/uL Red Blood Count 4.55 M/uL Hemoglobin 13.2 g/dL Hematocrit 41.2 % Mean Corpuscular Volume 90.5 fL Mean Corpuscular Hemoglobin 29.0 pg Mean Corpuscular Hemoglobin Concent 32.0 g/dl Platelet Count 191 K/uL Mean Platelet Volume 10.4 fL Neutrophils (%) (Auto) 47.0 % Lymphocytes (%) (Auto) 38.7 % Monocytes (%) (Auto) 10.4 % Eosinophils (%) (Auto) 3.2 % Basophils (%) (Auto) 0.5 % Neutrophils # (Auto) 2.93 K/uL Lymphocytes # (Auto) 2.41 K/uL Monocytes # (Auto) 0.65 K/uL Eosinophils # (Auto) 0.20 K/uL Basophils # (Auto) 0.03 K/uL RDW Standard Deviation 45.8 fL RDW Coefficient of Variation 13.9 % Immature Granulocyte % (Auto) 0.2 % Immature Granulocyte # (Auto) 0.01 K/uL Prothrombin Time 12.2 SECONDS Prothromb Time International Ratio 1.1 Sodium Level 142 mmol/L Potassium Level 4.2 mmol/L Chloride Level 111 mmol/L Carbon Dioxide Level 24 mmol/L Anion Gap 7.0 mmol/L Blood Urea Nitrogen 23 mg/dl Creatinine 0.85 mg/dl Est Creatinine Clear Calc Drug Dose 54.4 ml/min Estimated GFR () 72.4 Estimated GFR (Non- 62.5 BUN/Creatinine Ratio 26.8 Random Glucose 83 mg/dl Calcium Level 8.9 mg/dl Magnesium Level 2.1 mg/dl Medical Emergencies . Who to Call and When: Medical Emergencies: If at any time you feel your situation is an emergency, please call 911 immediately. . Non-Emergent Contact Non-Emergency issues call your: Primary Care Provider . . "Provider Documentation" section prepared by Rosalva Harding. . Core Measure Problem Core Measures: None [place] Drug Monitoring Program Search Results: patient reviewed within database, no issues identified
--- NOTE | 2017-03-20 14:09 | Discharge Summary ---
Discharge Summary Date of Service Mar 20, 2017. Discharge Summary Admission Date: Mar 17, 2017 at 20:49 Discharge Date: Mar 20, 2017 Discharge Disposition: alf facility Principal Diagnosis: Rapid atrial flutter Problems/Secondary Diagnoses: Parkinson's disease with dementia Paroxysmal atrial fibrillation/flutter Depression Asthma Meningioma History of DVT and PE Hypertension History of falls Chronic Right sided systolic CHF Mild AI Mod MR Immunizations: History of Pneumococcal: Yes Pneumococcal Date: Oct 28, 2011 Procedures: Echo Chest xray Consultations: Cardiology Medication Reconciliation New Medications: Diltiazem HCl (Diltiazem HCl ER) 120 Mg Caper 120 MG PO QAM for 30 Days Metoprolol Tartrate (Lopressor) (Lopressor) 50 Mg Tab 75 MG PO BID for 30 Days, #90 TAB Warfarin Sod (Coumadin) 5 Mg Tab 5 MG PO DAILY@16 for 30 Days, TAB Continued Medications: Acetaminophen (Tylenol) 500 Mg Tab 500 MG PO TID Cholecalciferol (Vitamin D3) 2,000 Unit Cap 2000 UNITS PO DAILY, CAP Escitalopram (Lexapro) 10 Mg Tab 10 MG PO DAILY, TAB Gabapentin (Neurontin) 300 Mg Cap 300 MG PO Q8 Polyethylene Glycol 3350 (Bulk (Polyethylene Glycol 3350) 1 Pow Pow 17 GM PO QAM PRN for Constipation Ranitidine (Zantac) 150 Mg Tab 150 MG PO QPM, TAB Risperidone (Risperdal) 0.25 Mg Tab 0.25 MG PO QAM Risperidone (Risperdal) 0.5 Mg Tab 0.5 MG PO HS, TAB Spironolactone (Aldactone) 25 Mg Tab 25 MG PO QAM, 0 Refills Tramadol (Ultram) 50 Mg Tab 25 MG PO Q4H PRN for Pain, #10 TAB (This prescription has been renewed) Trazodone Hcl (Trazodone) 50 Mg Tab 25 MG PO HS for Anxiety, TAB Discontinued Medications: Metoprolol Tartrate (Lopressor) (Lopressor) 50 Mg Tab 50 MG PO BID, TAB Referrals At Discharge Follow up Referrals: Physician Referral - Within 1 Week with Christian Linder M.D. Discharge Exam rates better controlled in the high 90s on tele, remains in a-flutter. Added on diltiazem 120mg today. pt has n complaints and is very pleasant, not agitated today Physical Exam General Appearance: WD/WN, no apparent distress Eyes: normal inspection, sclerae normal ENT: hearing grossly normal Neck: trachea midline Respiratory/Chest: lungs clear, normal breath sounds, no respiratory distress, no accessory muscle use Cardiovascular: no edema, no murmur, + irregularly irregular (with normal rate) Abdomen: normal bowel sounds, non tender, soft Extremities: non-tender, normal inspection, no pedal edema Neurologic/Psychiatric: no motor/sensory deficits, alert, + pertinent finding ( oriented to person and town) Skin: normal color, warm/dry, no rash Review of Systems: Constitutional: No problem reported Eyes: No problem reported ENT: No problem reported Respiratory: No problem reported Cardiovascular: No problem reported Abdomen: No problem reported Musculoskeletal: No problem reported Genitourinary - Female: No problem reported Neurologic: No problem reported Psychiatric: No problem reported Endocrine: No problem reported Hematologic / Lymphatic: No problem reported Integumentary: No problem reported Hospital Course This patient is an 87-year-old female with a history of Parkinson's disease, dementia, paroxysmal atrial fibrillation, depression, asthma, meningioma, history of DVT and PE, hypertension, and falls, who presents from [facility] with rapid atrial flutter after she seemed more agitated. Heart rate was noted to be in the 150s at the [facility] and came down to the 70s after administration of IV Cardizem and IV Lopressor in the ambulance in the ER, respectively. She does not have any ischemic changes on her ECG, and she was admitted for improved control of her rapid atrial flutter. Rapid atrial flutter/Chronic Right sided systolic CHF/Mild AI/Mod MR-She was given Cardizem 20 mg IV 1 in the ambulance, and then Lopressor 5 mg 1 IV here in the ER. Her heart rate came down nicely to the 70s and she was in 3-1 AV block atrial flutter. Apparently, she was on Coumadin in the past, but the daughter cannot recall why she was taken off of it. It seems that perhaps this was because of her fall risk. The patient has no signs or history of significant bleeding, and the daughter and son are now in agreement to start anticoagulation to prevent stroke with coumadin. They like the reversibility of coumadin and state that pt does well with blood draws [id number] score high with risk 7.2% per yr of CVA and ATRIA bleeding risk low at 0.76% annually. TSH here was normal. Rates improved on metoprolol higher dose po, but still in high 90s at rest. ECHO with: * Normal left ventricular systolic function. * Moderate concentric left ventricular hypertrophy. * Mild right ventricular dilatation. * Mild right ventricular systolic dysfunction. * Moderate biatrial dilatation. * Mild aortic regurgitation. * Mild to moderate pulmonic regurgitation. * Moderate mitral and tricuspid regurgitaion. * Mildly elevated right ventricular sytolic pressure. * -- Conclusions -- * Aortic valve sclerosis moderate, without significant aortic valvular stenosis. -continue metoprolol 75 mg by mouth twice a day -added on Diltiazem ER 120mg po daily on day of discharge -no antiarrhythmic being considered at this time as per Cardio -started coumadin 5 mg qPM and follow INR in 1 day at [facility] -INR on 03/20 was 1.1 after 1 dose of coumadin -Consult cardiology appreciated Hypertension-controlled BPs -Continue metoprolol and Aldactone -adding on diltiazem as above Parkinson's disease with dementia, depression, history of meningioma-all stable but her dementia is fairly advanced. She resides in the dementia unit of her [facility]. -Continue Risperdal and Lexapro -Supportive care Prophylaxis-coumadin Disposition-DO NOT RESUSCITATE/DO NOT INTUBATE as discussed with the daughter who is her power of insurance attorney Discharge to [facility] today Total Time Spent: Greater than 30 minutes This includes examination of the patient, discharge planning, medication reconciliation, and communication with other providers. Discharge Instructions Please refer to the electronic Patient Visit Report (Discharge Instructions) for additional information. Follow-Up PCP within 1-2 days Check INR 1 day Additional Copies To Christian Linder M.D.
[2017-03-20 15:01] VITALS: BP 117/76; TEMP 36; O2SAT 99
[2017-03-20] MEDS: WARFARIN SOD 5 MG TAB PO SCH (16:00)
[2017-03-20 16:11] VITALS: BP 117/76; PULSE 50; TEMP 36; O2SAT 99
[2017-03-21] MEDS ORDERED: DILTIAZEM HCL 120 MG ER CAP PO SCH (09:00)
== END 2017-03-20 16:30 | DRG 309 ==
LOC: C.EDC 15:29 → EDBD 15:29 → C.2T 20:49 → ENRESERV 20:59
PROVIDERS: ADMIT Family Medicine; ATTEND Family Medicine
DX: I48.92 Unspecified atrial flutter (principal); I50.22 Chronic systolic (congestive) heart failure; I48.0 Paroxysmal atrial fibrillation; I48.2 Chronic atrial fibrillation; G20 Parkinson's disease; F02.80 Dementia in other diseases classified elsewhere, unspecified severity, without behavioral disturbance, psychotic disturbance, mood disturbance, and anxiety; J44.9 Chronic obstructive pulmonary disease, unspecified; I11.0 Hypertensive heart disease with heart failure; I08.3 Combined rheumatic disorders of mitral, aortic and tricuspid valves; F32.9 Major depressive disorder, single episode, unspecified; Z23 Encounter for immunization; Z66 Do not resuscitate; Z91.81 History of falling; Z86.711 Personal history of pulmonary embolism; Z86.718 Personal history of other venous thrombosis and embolism; Z86.011 Personal history of benign neoplasm of the brain; Z96.653 Presence of artificial knee joint, bilateral; Z79.891 Long term (current) use of opiate analgesic; Z79.899 Other long term (current) drug therapy

== ENCOUNTER 2017-03-21 11:53 | Inpatient (IN) | payer OTHER ==
[~2017-03-21] VITALS: Ht 167.6 cm; Wt 84.5 kg
[~2017-03-21 11:53] MED LIST changes: -CEFD1CAP14 PO; -CMD3 PO
[2017-03-21] MEDS ORDERED: DILTIAZEM HCL 5 MG/ML 5 ML VIAL ONE (12:09)
[2017-03-21] MEDS ORDERED: SODIUM CHLORIDE 0.9% 500ML 500 ML IV STA (12:15)
[2017-03-21] MEDS ORDERED: DILTIAZEM HCL 30 MG TAB PO ONE (12:30)
[2017-03-21 12:35] LABS: VEN BLD GAS O2 SATURATION 70.4 %; VEN BLOOD GAS BASE EXCESS -1.7 mEq/L
[2017-03-21] MEDS ORDERED: SODIUM CHLORIDE 0.9% 1000ML 1,000 ML IV STA (12:36)
--- NOTE | 2017-03-21 12:37 | DIAGNOSTIC IMAGING REPORT ---
CHEST ONE VIEW PORTABLE CLINICAL HISTORY: Shortness of breath. Unresponsive patient COMPARISON STUDY: 03/17/2017 FINDINGS: The heart remains mildly enlarged. There is a linear left basilar atelectatic change. There is no overt failure. There is no lobar consolidation.[ There are no significant pleural effusions. IMPRESSION: No active disease in the chest. Electronically signed by: aBrrera Loyola M.D. 03/21/2017 12:35 PM Dictated Date/Time: 03/21/2017 12:35 PM
[2017-03-21 12:40] LABS: ISTAT CREATININE 1.2 mg/dl (0.6-1.3); ISTAT HEMOGLOBIN 13.6 g/dl (12.0-16.0); ISTAT IONIZED CALCIUM 1.19 mmol/l (1.12-1.32)
--- NOTE | 2017-03-21 12:41 | EMERGENCY ROOM VISIT NOTE ---
History Report prepared by Chilo: Albert Macedo Under the Supervision of: Dr. Maximiliano Bernal M.D. First contact with patient: 12:02 Chief Complaint: UNRESPONSIVE Stated Complaint: UNRESPONSIVE History of Present Illness The patient is a 87 year old female who presents to the Emergency Room from [facility] with report of unresponsiveness and increased heart rate that started this morning. Per Nursing, the patient was admitted here for a couple of days and discharged yesterday with a diagnosis of atrial flutter. She reports that the patient lives at [facility] and usually has her vitals taken every morning. Nursing states that when they checked her vitals this morning, she had a fast heart rate and was unresponsive, which is different from baseline. Per report, patient was able to get her daily medication of Lopressor and Cardizem today. Patient has a history of advanced dementia. The HPI is limited due to the patient's condition. Source of History: nursing staff Onset: this morning Position: other (global) Timing: worsening Note: Limited due to the patient's unresponsive condition. Review of Systems The ROS is limited due to the patient's condition. Past Medical & Surgical Medical Problems: (1) Asthma (2) Atrial Fibrillation (3) Dementia (4) Diverticulosis Colon (W/O Ment Of Hemorrhage) (5) DVT (deep venous thrombosis) (6) Hypertension Nos (7) PE (pulmonary embolism) (8) Rapid atrial fibrillation (9) SBO (small bowel obstruction) Surgical Problems: (1) History of appendectomy (2) History of hemicolectomy (3) History of tonsillectomy (4) History of total bilateral knee replacement Family History Dementia MOTHER Heart disease FATHER Social History Smoking Status: Never Smoker Alcohol Use: none Marital Status: Housing Status: senior care Occupation Status: retired Current/Historical Medications Scheduled Acetaminophen (Tylenol), 500 MG PO TID Cholecalciferol (Vitamin D3), 2,000 UNITS PO DAILY Diltiazem HCl (Diltiazem HCl ER), 120 MG PO QAM Escitalopram (Lexapro), 10 MG PO DAILY Gabapentin (Neurontin), 300 MG PO Q8 Metoprolol Tartrate (Lopressor) (Lopressor), 75 MG PO BID Ranitidine (Zantac), 150 MG PO QPM Risperidone (Risperdal), 0.25 MG PO QAM Risperidone (Risperdal), 0.5 MG PO HS Spironolactone (Aldactone), 25 MG PO QAM Trazodone Hcl (Trazodone), 25 MG PO HS Warfarin Sod (Coumadin), 5 MG PO DAILY@16 Scheduled PRN Polyethylene Glycol 3350 (Bulk (Polyethylene Glycol 3350), 17 GM PO QAM PRN for Constipation Tramadol (Ultram), 25 MG PO Q4H PRN for Pain Allergies Coded Allergies: Penicillins (Verified Allergy, Mild, 03/21/17) Sertraline (Unverified Allergy, Unknown, UNKNOWN, 03/21/17) Sulfa Drugs (Verified Allergy, Unknown, 03/21/17) Uncoded Allergies: human albumin (Adverse Reaction, Unknown, unknown, 01/04/16) Physical Exam Vital Signs Date Time Temp Pulse Resp B/P (MAP) Pulse Ox O2 Delivery O2 Flow Rate FiO2 03/21/17 14:32 72 18 107/66 95 Room Air 03/21/17 13:35 73 18 102/62 95 Room Air 03/21/17 13:03 73 16 101/56 96 Room Air 03/21/17 12:29 73 18 93/56 93 Room Air 03/21/17 12:26 73 03/21/17 12:11 98 Room Air 03/21/17 12:07 144 03/21/17 12:01 36.5 144 18 101/74 98 Room Air Physical Exam GENERAL: Awake, alert, chronically-ill appearing. Delirious HENT: Normocephalic, atraumatic. Oropharynx unremarkable. Dry mucous membranes. EYES: Normal conjunctiva. Sclera non-icteric. NECK: Supple. No nuchal rigidity. FROM. No JVD. RESPIRATORY: Clear to auscultation. CARDIAC: Tachycardic rate, regular rhythm. Extremities warm and well perfused. Pulses equal. ABDOMEN: Soft, non-distended. No tenderness to palpation. No rebound or guarding. No masses. RECTAL: Deferred. MUSCULOSKELETAL: Chest examination reveals no tenderness. The back is symmetrical on inspection without obvious abnormality. There is no CVA tenderness to palpation. No joint edema. LOWER EXTREMITIES: Calves are equal size bilaterally and non-tender. No edema. No discoloration. Moving all extremities. Normal strength in all extremities. NEURO: Normal sensorium. No sensory or motor deficits noted. GCS 13 SKIN: No rash or jaundice noted. GCS 13 dry mucous membrane HEART: tachycardic Medical Decision & Procedures ER Provider Diagnostic Interpretation: Radiology results as stated below per my review and radiologist interpretation: ULTRASOUND IVC is collapsed throughout respiratory cycle. No pericardial effusion grossly normal. LV and RV signs in function. CHEST ONE VIEW PORTABLE CLINICAL HISTORY: Shortness of breath. Unresponsive patient COMPARISON STUDY: 03/17/2017 FINDINGS: The heart remains mildly enlarged. There is a linear left basilar atelectatic change. There is no overt failure. There is no lobar consolidation.[ There are no significant pleural effusions. IMPRESSION: No active disease in the chest. Electronically signed by: Barrera Loyola M.D. 03/21/2017 12:35 PM Dictated Date/Time: 03/21/2017 12:35 PM HEAD WITHOUT CONTRAST (CT) CT DOSE: 729.78 mGycm HISTORY: Mental status change ams TECHNIQUE: Multiaxial CT images of the head were performed without the use of intravenous contrast. A dose lowering technique was utilized adhering to the principles of ALARA. Comparison: 01/15/2017 Findings: The paranasal sinuses and mastoid air cells are clear. Moderate chronic small vessel change in the periventricular deep white matter distribution. This is unchanged from the prior study. Ventricular system is midline. No evidence for acute intracranial hemorrhage. Impression: Chronic and age-related change. No acute process. The above report was generated using voice recognition software. It may contain grammatical, syntax or spelling errors. Electronically signed by: Keegan Sharma M.D. 03/21/2017 1:00 PM Dictated Date/Time: 03/21/2017 12:59 PM CHEST ONE VIEW PORTABLE CLINICAL HISTORY: Shortness of breath. Unresponsive patient COMPARISON STUDY: 03/17/2017 FINDINGS: The heart remains mildly enlarged. There is a linear left basilar atelectatic change. There is no overt failure. There is no lobar consolidation.[ There are no significant pleural effusions. IMPRESSION: No active disease in the chest. Electronically signed by: Barrera Loyola M.D. 03/21/2017 12:35 PM Dictated Date/Time: 03/21/2017 12:35 PM Laboratory Results 03/21/17 12:15 Red Blood Count 4.66, Mean Corpuscular Volume 91.8, Mean Corpuscular Hemoglobin 28.8, Mean Corpuscular Hemoglobin Concent 31.3, Mean Platelet Volume 10.0, Neutrophils (%) (Auto) 58.5, Lymphocytes (%) (Auto) 27.6, Monocytes (%) (Auto) 10.9, Eosinophils (%) (Auto) 2.3, Basophils (%) (Auto) 0.4, Neutrophils # (Auto ) 4.26, Lymphocytes # (Auto) 2.01, Monocytes # (Auto) 0.79, Eosinophils # (Auto ) 0.17, Basophils # (Auto) 0.03 03/21/17 12:15 Test 03/21/17 12:15 03/21/17 12:20 03/21/17 12:25 White Blood Count 7.28 K/uL (4.8-10.8) Red Blood Count 4.66 M/uL (4.2-5.4) Hemoglobin 13.4 g/dL (12.0-16.0) Hematocrit 42.8 % (37-47) Mean Corpuscular Volume 91.8 fL (80-100) Mean Corpuscular Hemoglobin 28.8 pg (25-34) Mean Corpuscular Hemoglobin Concent 31.3 g/dl (32-36) Platelet Count 234 K/uL (130-400) Mean Platelet Volume 10.0 fL (7.4-10.4) Neutrophils (%) (Auto) 58.5 % Lymphocytes (%) (Auto) 27.6 % Monocytes (%) (Auto) 10.9 % Eosinophils (%) (Auto) 2.3 % Basophils (%) (Auto) 0.4 % Neutrophils # (Auto) 4.26 K/uL (1.4-6.5) Lymphocytes # (Auto) 2.01 K/uL (1.2-3.4) Monocytes # (Auto) 0.79 K/uL (0.11-0.59) Eosinophils # (Auto) 0.17 K/uL (0-0.5) Basophils # (Auto) 0.03 K/uL (0-0.2) RDW Standard Deviation 46.7 fL (36.4-46.3) RDW Coefficient of Variation 14.0 % (11.5-14.5) Immature Granulocyte % (Auto) 0.3 % Immature Granulocyte # (Auto) 0.02 K/uL (0.00-0.02) Prothrombin Time 22.6 SECONDS (9.0-12.0) Prothromb Time International Ratio 2.0 (0.9-1.1) Est Creatinine Clear Calc Drug Dose 42.0 ml/min Estimated GFR () 53.0 Estimated GFR (Non- 45.7 BUN/Creatinine Ratio 24.8 (10-20) Calcium Level 8.9 mg/dl (8.5-10.1) Magnesium Level 2.2 mg/dl (1.8-2.4) Pro-B-Type Natriuretic Peptide 2802 pg/ml (0-1800) Thyroid Stimulating Hormone (TSH) 1.950 uIu/ml (0.300-4.500) Venous Blood pH 7.35 (7.36-7.41) Venous Blood Partial Pressure CO2 45 mmHg (38.0-50.0) Venous Blood Partial Pressure O2 41 mmHg Venous Blood HCO3 24 mmol/L Venous Blood Oxygen Saturation 70.4 % Venous Blood Base Excess -1.7 mEq/L Bedside Hemoglobin 13.6 g/dl (12.0-16.0) Bedside Hematocrit 40 % (37-47) Bedside Sodium 143 mEq/L (135-144) Bedside Potassium 4.6 mEq/L (3.3-5.0) Bedside Chloride 106 mEq/L (101-112) Bedside Total CO2 26 mEq/l (24-31) Anion Gap 16.0 mmol/L (16-25) Bedside Blood Urea Nitrogen 35 mg/dl (7-18) Bedside Creatinine 1.2 mg/dl (0.6-1.3) Bedside Glucose (other) 106 mg/dl (70-99) Bedside Ionized Calcium (Rolando) 1.19 mmol/l (1.12-1.32) Laboratory results reviewed by me Medications Administered Medications (Trade) Dose Ordered Sig/[place] Route Start Time Stop Time Status Last Admin Dose Admin Diltiazem HCl (Cardizem Inj) 25 mg STK-MED ONCE .ROUTE 03/21/17 12:09 03/21/17 12:10 DC 03/21/17 12:22 10 MG Sodium Chloride 500 ml @ 999 mls/hr Q31M STAT IV 03/21/17 12:15 03/21/17 12:45 DC 03/21/17 12:15 999 MLS/HR Diltiazem HCl (Cardizem Tab) 30 mg NOW ONCE PO 03/21/17 12:30 03/21/17 12:31 DC 03/21/17 13:36 30 MG Sodium Chloride 1,000 ml @ 125 mls/hr Q8H STAT IV 03/21/17 12:36 03/21/17 16:45 DC 03/21/17 14:34 125 MLS/HR Tramadol HCl (Ultram Tab) 25 mg Q4H PRN PO 03/21/17 14:30 04/20/17 14:29 03/21/17 21:46 25 MG Sodium Chloride 1,000 ml @ 80 mls/hr [id number] ONCE IV 03/21/17 14:30 03/22/17 02:59 DC 03/21/17 16:30 80 MLS/HR ECG Indication: other (unresponsive) Rate (beats per minute): 144 Rhythm: sinus tachycardia Findings: no acute ischemic change, other (QRS 120, normal axis, limited by rate) Comparison ECG Date: 03/17/17 Change: QRS widened rate related. Likely artifact of rapid rate and flutter. ED Course 1158: The patient was evaluated in room B01. A complete history and physical exam was performed. 1209: Ordered Cardizem Injection 25 mg IV. 1215: Sodium Chloride 500 ml @ 999 mls/hr IV. 1230: Cardizem Tab 30 mg PO. 1236: Sodium Chloride 1000 ml @ 125 mls/hr IV. 1405: I discussed the patient's case with Dr. Reagan, [facility] Hospitalist. He understands the patient's condition and agrees to accept the patient. The patient will be further evaluated. Medical Decision I reviewed the patient's past medical history, medications, and the nursing notes as described above. The patient's presentation and history were concerning for Atrial flutter with rapid ventricular response, dehydration, electrolyte abnormality, pulmonary vs. urinary infection, intracranial hemorrhage.. The patient is 87-year-old woman with a past medical history of dementia residing in a dementia unit as well as paroxysmal A. fib flutter recently admitted for the same and discharged yesterday who presents to emergency department from her facility after having. Of unresponsiveness this morning and tachycardia to the 140s 150s. On arrival the patient is arousable to loud voice and will follow commands. Although confused consistent with her severe dementia. Heart rate showed a regular wide complex tachycardia with QRS to 120s. Alert in the setting of the patient's known atrial flutter wide QRS likely secondary to P waves embedded in the QRS complex. Limited bedside echo showed a collapsed IVC throughout respiratory cycle consistent with intravascular depletion. The patient was given 500 mL NS bolus and 10 mg of IV tilt with good effect. Heart rate improved to the 70s and 80s. Repeat EKG showing atrial flutter. CT scan of the head was done considering report of acute altered mental status but was negative. Troponin negative. BNP 1999s however lungs are clear, sating 95% on room air. Thus no need for diuresis at this time. Moreover patient appears clinically dry supported by findings described above as well as BUN/creatinine greater than 20. UA pending. Discussed the case with the medicine hospitalist will admit the patient to the medicine service for further management. Head Trauma GCS Score: 13 Medication Reconcilliation Current Medication List: was personally reviewed by me Blood Pressure Screening Patient's blood pressure: Normal blood pressure Consults Time Called: 1405 Consulting Physician: Dr. Reagan, [facility] Hospitalist Returned Call: 1405 I discussed the patient's case with Dr. Reagan, [facility] Hospitalist. He understands the patient's condition and agrees to accept the patient. The patient will be further evaluated. Impression Primary Impression: Atrial flutter with rapid ventricular response Additional Impression: Dehydration Critical Care I have personally spent greater than [60] minutes of critical care time in the direct management of this patient. This includes bedside care, interpretation of diagnostic studies, and testing, discussion with consultants, patient, and family members, and other required patient management activities. This [60] minutes is in excess of all separately billable procedures. Scribe Attestation The scribe's documentation has been prepared under my direction and personally reviewed by me in its entirety. I confirm that the note above accurately reflects all work, treatment, procedures, and medical decision making performed by me. Departure Information Dispostion Being Evaluated By Hospitalist Referrals Raji Lees (PCP) Patient Instructions [facility] Problem Qualifiers
[2017-03-21 12:51] LABS: BASO % 0.4 %; BASO ABS # 0.03 K/uL (0-0.2); COMPLETE YES; EOS % 2.3 %; HEMATOCRIT 42.8 % (37-47); IG% 0.3 %; LYMPH % 27.6 %; LYMPH ABS # 2.01 K/uL (1.2-3.4); MEAN CELL VOLUME 91.8 fL (80-100); MEAN CORPUSCULAR HEMOGLOBIN 28.8 pg (25-34); MEAN CORPUSCULAR HGB CONC 31.3 g/dl (32-36); MONO % 10.9 %; NEUT % 58.5 %; PLATELET COUNT 234 K/uL (130-400); RED BLOOD COUNT 4.66 M/uL (4.2-5.4); WHITE BLOOD COUNT 7.28 K/uL (4.8-10.8)
[2017-03-21 12:59] LABS: PROTHROMBIN TIME (PATIENT) 22.6 SECONDS (9.0-12.0)
[2017-03-21 13:00] LABS: BLOOD UREA NITROGEN 27 mg/dl (7-18); BUN/CREATININE RATIO 24.8 (10-20); CALCIUM 8.9 mg/dl (8.5-10.1); CARBON DIOXIDE 25 mmol/L (21-32); CHLORIDE 112 mmol/L (98-107); GLUCOSE 109 mg/dl (70-99); MAGNESIUM 2.2 mg/dl (1.8-2.4); POTASSIUM 4.3 mmol/L (3.5-5.1); SODIUM 143 mmol/L (136-145)
--- NOTE | 2017-03-21 13:02 | DIAGNOSTIC IMAGING REPORT ---
HEAD WITHOUT CONTRAST (CT) CT DOSE: 729.78 mGycm HISTORY: Mental status change ams TECHNIQUE: Multiaxial CT images of the head were performed without the use of intravenous contrast. A dose lowering technique was utilized adhering to the principles of ALARA. Comparison: 01/15/2017 Findings: The paranasal sinuses and mastoid air cells are clear. Moderate chronic small vessel change in the periventricular deep white matter distribution. This is unchanged from the prior study. Ventricular system is midline. No evidence for acute intracranial hemorrhage. Impression: Chronic and age-related change. No acute process. The above report was generated using voice recognition software. It may contain grammatical, syntax or spelling errors. Electronically signed by: Keegan Sharma M.D. 03/21/2017 1:00 PM Dictated Date/Time: 03/21/2017 12:59 PM
[2017-03-21] MEDS ORDERED: ONDANSETRON INJ 2 MG/ML 2 ML VIAL IV PRN (14:30)
[2017-03-21] MEDS ORDERED: SODIUM CHLORIDE 0.9% 1000ML 1,000 ML IV ONE (14:30)
[2017-03-21] MEDS ORDERED: POLYETHYLENE (MIRALAX) 17 GM PACK PO PRN (14:30)
[2017-03-21] MEDS ORDERED: NITROGLYCERIN 0.4 MG SL PER TAB CHARGE SL PRN (14:30)
[2017-03-21] MEDS ORDERED: ALUMINUM/MAGNESIUM/SIMETH (MAALOX MAX) 30 ML UDC PO PRN (14:30)
[2017-03-21] MEDS ORDERED: MAGNESIUM HYDROXIDE SUSP 30 ML UDC PO PRN (14:30)
--- NOTE | 2017-03-21 14:59 | History and Physical ---
History & Physical Date & Time of Service: Mar 21, 2017 at 14:36 Chief Complaint: Unresponsive Primary Care Physician: Raji Lees History of Present Illness Source: patient, clinic records, hospital records This patient is an 87-year-old female with a history of Parkinson's disease, dementia, paroxysmal atrial fibrillation, depression, asthma, meningioma, history of DVT and PE, hypertension, and falls, who presents from [facility] with rapid HR and unresponsive episode. History came from ED record as patient has dementia, cannot offer any information, and no family present. When nursing staff went to visit patient this AM and obtain her vitals , she had a rapid HR and was unresponsive. Other than HR at 130, other vitals and BSG stable. Patient was most recently admitted to [facility] for a.flutter w/ RVR on 03/17 and discharged on 03/20. Her Metoprolol was increased, Diltiazem ER was added, and she was started on Coumadin. On arrival to ED, HR at 144. Patient was treated with Cardizem 30 mg PO and 25 mg IV- RVR resolved with HRs now in the 70s. CT of the head and CXR unremarkable for any acute processes. Patient is currently alert and response to name. Disoriented. ROS could not be obtained secondary to dementia. Past Medical/Surgical History Medical Problems: Parkinson's disease dementia paroxysmal atrial fibrillation depression asthma meningioma history of DVT and PE hypertension h/o falls Surgical Problems: (1) History of appendectomy Status: Chronic (2) History of hemicolectomy Status: Chronic (3) History of tonsillectomy Status: Chronic (4) History of total bilateral knee replacement Status: Chronic Family History Dementia MOTHER Heart disease FATHER Social History Smoking Status: Never Smoker Marital Status: Housing status: residential Occupational Status: retired Immunizations History of Pneumococcal: Yes Pneumococcal Date: Oct 28, 2011 Multi-Drug Resistant Organisms History of MDRO: No Allergies Coded Allergies: Penicillins (Verified Allergy, Mild, 03/21/17) Sertraline (Unverified Allergy, Unknown, UNKNOWN, 03/21/17) Sulfa Drugs (Verified Allergy, Unknown, 03/21/17) Uncoded Allergies: human albumin (Adverse Reaction, Unknown, unknown, 01/04/16) Home Medications Scheduled Acetaminophen (Tylenol), 500 MG PO TID Cholecalciferol (Vitamin D3), 2,000 UNITS PO DAILY Diltiazem HCl (Diltiazem HCl ER), 120 MG PO QAM Escitalopram (Lexapro), 10 MG PO DAILY Gabapentin (Neurontin), 300 MG PO Q8 Metoprolol Tartrate (Lopressor) (Lopressor), 75 MG PO BID Ranitidine (Zantac), 150 MG PO QPM Risperidone (Risperdal), 0.25 MG PO QAM Risperidone (Risperdal), 0.5 MG PO HS Spironolactone (Aldactone), 25 MG PO QAM Trazodone Hcl (Trazodone), 25 MG PO HS Warfarin Sod (Coumadin), 5 MG PO DAILY@16 Scheduled PRN Polyethylene Glycol 3350 (Bulk (Polyethylene Glycol 3350), 17 GM PO QAM PRN for Constipation Tramadol (Ultram), 25 MG PO Q4H PRN for Pain Physical Exam Vital Signs Date Time Temp Pulse Resp B/P (MAP) Pulse Ox O2 Delivery O2 Flow Rate FiO2 03/21/17 13:35 73 18 102/62 95 Room Air 03/21/17 13:03 73 16 101/56 96 Room Air 03/21/17 12:29 73 18 93/56 93 Room Air 03/21/17 12:26 73 03/21/17 12:11 98 Room Air 03/21/17 12:07 144 03/21/17 12:01 36.5 144 18 101/74 98 Room Air General Appearance: no apparent distress, + obese Head: normocephalic, atraumatic Eyes: PERRL ENT: hearing grossly normal Neck: supple Respiratory/Chest: lungs clear, no respiratory distress, no accessory muscle use Cardiovascular: regular rate, rhythm Abdomen/GI: normal bowel sounds, non tender, soft Extremities/Musculoskelatal: no calf tenderness, no pedal edema, + pertinent finding (TEDs on ) Neurologic/Psych: alert, + disoriented Skin: normal color, warm/dry, no rash Diagnostics Laboratory Results Results Past 24 Hours Test 03/21/17 12:15 03/21/17 12:20 03/21/17 12:25 Range/Units White Blood Count 7.28 4.8-10.8 K/uL Red Blood Count 4.66 4.2-5.4 M/uL Hemoglobin 13.4 12.0-16.0 g/dL Hematocrit 42.8 37-47 % Mean Corpuscular Volume 91.8 80-100 fL Mean Corpuscular Hemoglobin 28.8 25-34 pg Mean Corpuscular Hemoglobin Concent 31.3 32-36 g/dl Platelet Count 234 130-400 K/uL Mean Platelet Volume 10.0 7.4-10.4 fL Neutrophils (%) (Auto) 58.5 % Lymphocytes (%) (Auto) 27.6 % Monocytes (%) (Auto) 10.9 % Eosinophils (%) (Auto) 2.3 % Basophils (%) (Auto) 0.4 % Neutrophils # (Auto) 4.26 1.4-6.5 K/uL Lymphocytes # (Auto) 2.01 1.2-3.4 K/uL Monocytes # (Auto) 0.79 0.11-0.59 K/uL Eosinophils # (Auto) 0.17 0-0.5 K/uL Basophils # (Auto) 0.03 0-0.2 K/uL RDW Standard Deviation 46.7 36.4-46.3 fL RDW Coefficient of Variation 14.0 11.5-14.5 % Immature Granulocyte % (Auto) 0.3 % Immature Granulocyte # (Auto) 0.02 0.00-0.02 K/uL Prothrombin Time 22.6 9.0-12.0 SECONDS Prothromb Time International Ratio 2.0 0.9-1.1 Sodium Level 143 136-145 mmol/L Potassium Level 4.3 3.5-5.1 mmol/L Chloride Level 112 98-107 mmol/L Carbon Dioxide Level 25 21-32 mmol/L Anion Gap 6.0 16.0 16-25 mmol/L Blood Urea Nitrogen 27 7-18 mg/dl Creatinine 1.10 0.60-1.20 mg/dl Est Creatinine Clear Calc Drug Dose 42.0 ml/min Estimated GFR () 53.0 Estimated GFR (Non- 45.7 BUN/Creatinine Ratio 24.8 10-20 Random Glucose 109 70-99 mg/dl Calcium Level 8.9 8.5-10.1 mg/dl Magnesium Level 2.2 1.8-2.4 mg/dl Troponin I < 0.015 0-0.045 ng/ml Pro-B-Type Natriuretic Peptide 2802 0-1800 pg/ml Thyroid Stimulating Hormone (TSH) 1.950 0.300-4.500 uIu/ml Venous Blood pH 7.35 7.36-7.41 Venous Blood Partial Pressure CO2 45 38.0-50.0 mmHg Venous Blood Partial Pressure O2 41 mmHg Venous Blood HCO3 24 mmol/L Venous Blood Oxygen Saturation 70.4 % Venous Blood Base Excess -1.7 mEq/L Bedside Hemoglobin 13.6 12.0-16.0 g/dl Bedside Hematocrit 40 37-47 % Bedside Sodium 143 135-144 mEq/L Bedside Potassium 4.6 3.3-5.0 mEq/L Bedside Chloride 106 101-112 mEq/L Bedside Total CO2 26 24-31 mEq/l Bedside Blood Urea Nitrogen 35 7-18 mg/dl Bedside Creatinine 1.2 0.6-1.3 mg/dl Bedside Glucose (other) 106 70-99 mg/dl Bedside Ionized Calcium (Rolando) 1.19 1.12-1.32 mmol/l Diagnostic Radiology CHEST ONE VIEW PORTABLE CLINICAL HISTORY: Shortness of breath. Unresponsive patient COMPARISON STUDY: 03/17/2017 FINDINGS: The heart remains mildly enlarged. There is a linear left basilar atelectatic change. There is no overt failure. There is no lobar consolidation.[ There are no significant pleural effusions. IMPRESSION: No active disease in the chest. Electronically signed by: Barrera Loyola M.D. 03/21/2017 12:35 PM Dictated Date/Time: 03/21/2017 12:35 PM The status of this report is Signed. Draft = Not yet reviewed or approved by Radiologist. Signed = Reviewed and approved by Radiologist. HEAD WITHOUT CONTRAST (CT) CT DOSE: 729.78 mGycm HISTORY: Mental status change ams TECHNIQUE: Multiaxial CT images of the head were performed without the use of intravenous contrast. A dose lowering technique was utilized adhering to the principles of ALARA. Comparison: 01/15/2017 Findings: The paranasal sinuses and mastoid air cells are clear. Moderate chronic small vessel change in the periventricular deep white matter distribution. This is unchanged from the prior study. Ventricular system is midline. No evidence for acute intracranial hemorrhage. Impression: Chronic and age-related change. No acute process. The above report was generated using voice recognition software. It may contain grammatical, syntax or spelling errors. Electronically signed by: Keegan Sharma M.D. 03/21/2017 1:00 PM Dictated Date/Time: 03/21/2017 12:59 PM The status of this report is Signed. Draft = Not yet reviewed or approved by Radiologist. Signed = Reviewed and approved by Radiologist. EKG GALINA COOLEY ID:[id number] 21-MAR-2017 12:01:40 [facility] Wide QRS tachycardia Non-specific intra-ventricular conduction delay Nonspecific ST abnormality Abnormal ECG When compared with ECG of 19-MAR-2017 06:42, Wide QRS tachycardia has replaced Atrial flutter 25mm/s 10mm/mV 150Hz 8.0 SP2 12SL 241 JULI: 3 Referred by: Raji Lees Unconfirmed Vent. rate 144 BPM MS interval * ms QRS duration 120 ms QT/QTc 354/548 ms P-R-T axes * 80 44 1930 (87 yr) Female 96in Room: Loc:13 Adjunct Instructor Of Women'S Studies:Angie Grimm Test ind: GALINA COOELY ID:[id number] 21-MAR-2017 12:35:00 [facility] Atrial flutter Marked ST abnormality, possible inferior subendocardial injury Abnormal ECG When compared with ECG of 21-MAR-2017 12:01, (unconfirmed) Atrial flutter has replaced Wide QRS tachycardia Vent. rate has decreased BY 71 BPM 25mm/s 10mm/mV 150Hz 8.0 SP2 12SL 241 JULI: 0 Referred by: Raji Lees Unconfirmed Vent. rate 73 BPM MS interval * ms QRS duration 76 ms QT/QTc 198/218 ms P-R-T axes 82 42 -89 1930 (87 yr) Female 96in Room:B1 Loc:15 Adjunct Instructor Of Women'S Studies:MICHELLE MALCOLM Test ind: Impression Assessment and Plan This patient is an 87-year-old female with a history of Parkinson's disease, dementia, paroxysmal atrial fibrillation, depression, asthma, meningioma, history of DVT and PE, hypertension, and falls, who presents from [facility] with rapid HR and unresponsive episode. A. flutter w/ RVR, unresponsive episode- follows w/ Dr. Wilson: - Admit to tele for cardiac monitoring - Trend cardiac enzymes- initial trop negative - EKG QAM and PRN w/ CP - ABG unremarkable - IV NS bolus x1 in ED; continue @ 80 ml/hr x1 at admission - change Diltiazem 120 mg QpM and Metoprolol 75 mg BID - IV Lopressor 5 mg q6 hrs PRN HR >120 - Continue Coumadin 5 mg daily- follow INR, INR 2.0 at admission - TSH WNL - Head CT- unremarkable for acute intracranial findings - UA pending HTN- STABLE: Continue Metoprolol and Aldactone 25 mg QAM Parkinson's disease w/ dementia, depression, h/o meningioma: Continue Risperdal 0.25 mg QAM/0.5 mg HS, Lexapro 10 mg daily, Trazodone 25 mg HS GI Prophylaxis: Zantac DVT Prophylaxis: Coumadin Code Status: LEVEL V, DNR Dispo: From [facility]- social services manager consulted PA Physician Supervision Note: I interviewed and examined the patient. Discussed with Aicha SHAW and agree with findings and plan as documented in the note. Any exceptions or clarifications are listed here: None Patient has one day discharge from A. fib RVR presented with an unresponsive episode in A. fib RVR this is usually easily controlled with hydration and intravenous diltiazem dose. The patient upon my evaluation was in her usual demented state with multiple somatic complaints but no focal complaints. Her vital signs show atrial fibrillation controlled ventricular rate blood pressure was slightly low with hydration improved Cardiac exam is irregularly irregular lungs are clear without wheezes or crackles she has no JVD Atrial fibrillation RVR may be that the extended release metoprolol and diltiazem "wore off" by morning and maybe an unknown dosing of these medicines or perhaps adding digoxin may be entertained we'll continue metoprolol at this point in time and use diltiazem extended release in the evening with cardiology consult. Coumadin is used for from below embolic prophylaxis CT head shows an changes or hemorrhage Because of his unresponsive episode will evaluate her for encephalopathy by doing a urine culture Documented By: Kody Reagan Level of Care Telemetry Resuscitation Status DO NOT RESUSCITATE VTE Prophylaxis VTE Risk Assessment Done? Y/N: Yes Risk Level: Moderate Given or contraindicated: Warfarin (Coumadin)
[2017-03-21] MEDS ORDERED: METOPROLOL TARTRATE 1 MG/ML VIAL IV PRN (15:00)
[2017-03-21] MEDS ORDERED: IV FLUIDS COMPLETED PRN (15:45)
[2017-03-21 16:15] VITALS: BP 102/64; PULSE 48; TEMP 36.4; O2SAT 98
[2017-03-21] MEDS ORDERED: WARFARIN SOD 5 MG TAB PO SCH (17:00)
[2017-03-21 18:25] VITALS: BP 102/64; PULSE 48; TEMP 36.4; O2SAT 98; Ht 167.6 cm; Wt 84.5 kg
[2017-03-21] MEDS: ACETAMINOPHEN 500 MG TAB PO SCH (18:58)
[2017-03-21] MEDS: RISPERIDONE 0.5 MG TAB PO SCH (18:58)
[2017-03-21] MEDS: RANITIDINE HCL 150 MG TAB PO SCH (18:58)
[2017-03-21 20:00] VITALS: O2SAT 97
[2017-03-21 20:20] VITALS: BP 109/73; PULSE 72; TEMP 36.5; O2SAT 97
[2017-03-21] MEDS: DILTIAZEM HCL 120 MG ER CAP PO SCH (21:45)
[2017-03-21] MEDS: METOPROLOL TARTRATE 25 MG TAB PO SCH (21:45)
[2017-03-21] MEDS: TRAZODONE HCL 50 MG TAB PO SCH (21:45)
[2017-03-21] MEDS: TRAMADOL HCL 50 MG TAB PO PRN (21:46)
[2017-03-21] MEDS: GABAPENTIN 300 MG CAP PO SCH (21:47)
[2017-03-21 23:23] VITALS: BP 112/72; PULSE 68; TEMP 36.4; O2SAT 97
[2017-03-22] VITALS (9 sets, daily range): BP systolic 106–159; BP diastolic 66–77; PULSE 45–103; TEMP 36.4–36.9; O2SAT 92–98
[2017-03-22 03:25] LABS: URINE APPEARANCE CLEAR (CLEAR); URINE BILIRUBIN NEG (NEG); URINE COLOR YELLOW; URINE EPITHELIAL CELL AUTO >30 /lpf (0-5); URINE NITRITE NEG (NEG); URINE SPECIFIC GRAVITY 1.013 (1.000-1.030); UROBILINOGEN NEG (NEG); ZZUR CULT IF INDIC CLEAN CATCH NO
[2017-03-22 03:26] LABS: MANUAL MICROSCOPIC REQUIRED? NO; REVIEW REQ? NO
[2017-03-22 04:38] LABS: INR 3.5 (0.9-1.1); PROTHROMBIN TIME (PATIENT) 39.5 SECONDS (9.0-12.0)
[2017-03-22] MEDS: TRAMADOL HCL 50 MG TAB PO PRN ×3 (05:26→19:17)
[2017-03-22] MEDS: GABAPENTIN 300 MG CAP PO SCH ×3 (05:26→21:01)
[2017-03-22] MEDS ORDERED: DILTIAZEM HCL 120 MG ER CAP PO SCH (09:00)
[2017-03-22] MEDS: ACETAMINOPHEN 500 MG TAB PO SCH ×3 (09:21→20:58)
[2017-03-22] MEDS: METOPROLOL TARTRATE 25 MG TAB PO SCH ×2 (09:21→21:00)
[2017-03-22] MEDS: RISPERIDONE 0.5 MG TAB PO SCH ×2 (09:22→20:59)
[2017-03-22] MEDS: ESCITALOPRAM OXALATE 10 MG TAB PO SCH (09:23)
[2017-03-22] MEDS: SPIRONOLACTONE 25 MG TAB PO SCH (09:24)
--- NOTE | 2017-03-22 16:41 | Hospitalist Progress Note ---
Hospitalist Progress Note Date of Service Mar 22, 2017. Subjective Pt evaluation today including: conversation w/ patient, conversation w/ family (Carito daughter on phone), conversation w/ trousseau consultant (Welding Tester) Pt readmitted with A-flutter and a period of unresponsiveness, with rapid a- flutter in the 150s. Now with rates in the 60s. Pt confused, pulled out her IV, and yells out "Lady, lady!" Otherwise cannot tell me anything. Additional Comments: unobtainable Objective Vital Signs Date Time Temp Pulse Resp B/P (MAP) Pulse Ox O2 Delivery O2 Flow Rate FiO2 03/22/17 15:39 36.8 90 24 159/73 (101) 97 Room Air 03/22/17 12:00 95 Room Air 03/22/17 10:46 36.6 45 16 106/66 (79) 92 Room Air 03/22/17 09:05 36.4 69 20 135/75 (95) 98 Room Air 03/22/17 08:00 98 Room Air 03/22/17 04:00 Room Air 03/22/17 03:12 36.5 68 18 128/76 (93) 98 Room Air 03/22/17 00:00 Room Air 03/21/17 23:23 36.4 68 18 112/72 (85) 97 Room Air 03/21/17 20:20 36.5 72 20 109/73 (85) 97 Room Air 03/21/17 20:00 97 Room Air 03/21/17 18:25 36.4 48 20 102/64 98 Room Air 03/21/17 16:15 36.4 48 20 102/64 (77) 98 Room Air Physical Exam General Appearance: no apparent distress Eyes: normal inspection, sclerae normal ENT: hearing grossly normal Neck: trachea midline Respiratory/Chest: lungs clear, normal breath sounds, no respiratory distress, no accessory muscle use Cardiovascular: + irregularly irregular (with normal rate, no mgr) Abdomen: normal bowel sounds, non tender, soft Extremities: non-tender, normal inspection, no pedal edema Neurologic/Psychiatric: alert, + disoriented Skin: normal color, warm/dry, no rash Laboratory Results Last 24 Hours Test 03/21/17 19:50 03/22/17 03:00 03/22/17 04:02 Creatine Kinase MB 2.0 ng/ml 2.2 ng/ml Creatine Kinase MB Ratio Troponin I < 0.015 ng/ml < 0.015 ng/ml Urine Color YELLOW Urine Appearance CLEAR Urine pH 6.0 Urine Specific [place] 1.013 Urine Protein NEG Urine Glucose (UA) NEG Urine Ketones NEG Urine Occult Blood TRACE Urine Nitrite NEG Urine Bilirubin NEG Urine Urobilinogen NEG Urine Leukocyte Esterase NEG Urine WBC (Auto) 1-5 /hpf Urine RBC (Auto) 0-4 /hpf Urine Hyaline Casts (Auto) 1-5 /lpf Urine Epithelial Cells (Auto) >30 /lpf Urine Bacteria (Auto) NEG Prothrombin Time 39.5 SECONDS Prothromb Time International Ratio 3.5 Assessment and Plan This patient is an 87-year-old female with a history of Parkinson's disease, dementia, paroxysmal atrial flutter/fibrillation, depression, asthma, meningioma , history of DVT and PE, hypertension, and falls, who presents from [facility] with rapid HR and unresponsive episode. A. flutter w/ RVR, unresponsive episode- Unclear about why she was unresponsive- BP was reportedly normal at that time. QRS was wider but felt that P waves buried in QRS. On last admission, RN did report to me that when she sleeps, she sometimes appears to have brief periods of apnea. So perhaps her unresponsiveness was related to apnea? If BP normal, doubtful that her rapid aflutter caused her to become unresponsive. Was recently discharged 2 days ago with rates controlled after adding on Diltiazem 120 XR and increasing metoprolol to 75 bid. Was given IV diltiazem 25mg x 1 and po diltiazem 30mg in ER. Rates now controlled and sometimes julia in the 50s Trop neg x 2, ABG unremarkable, TSH WNL, Head CT- unremarkable for acute intracranial findings. She was given IV NS bolus x1 in ED as ED Physician performed bedside US which showed intravascular volume depletion. UA without signs of infection. - continue cardiac monitoring -suspect her dementia plays a role in her dehydration on admission - change Diltiazem 120 mg from AM to be given in the PM -continue Metoprolol 75 mg BID - IV Lopressor 5 mg q6 hrs PRN HR >120 - Continue Coumadin but hold today for INR 3.5 -I discussed the case with Cardiology--> will be difficult to always rate control her but she is not a good candidate for BRANT and DCCV. AMiodarone might slow her down even more now and then might need PPM. When goes back to [facility], should be communicated that it's ok for her to have a HR in the 120s-130s as long as it isn't going on for days at a time and if maintaining normal BP. HTN- STABLE: Continue Metoprolol and Aldactone 25 mg QAM Parkinson's disease w/ dementia, depression, h/o meningioma: Continue Risperdal 0.25 mg QAM/0.5 mg HS, Lexapro 10 mg daily, Trazodone 25 mg HS -supportive care 1:1 for safety GI Prophylaxis: Zantac DVT Prophylaxis: Coumadin Code Status: LEVEL V, DNR Dispo: From [facility]- marriage and family social worker consulted Discussed plan of care with Daughter Carito on phone today
[2017-03-22] MEDS: DILTIAZEM HCL 120 MG ER CAP PO SCH (20:59)
[2017-03-22] MEDS: TRAZODONE HCL 50 MG TAB PO SCH (20:59)
[2017-03-22] MEDS: RANITIDINE HCL 150 MG TAB PO SCH (21:00)
[2017-03-23 05:14] VITALS: BP 122/67; PULSE 77; O2SAT 95
[2017-03-23] MEDS: GABAPENTIN 300 MG CAP PO SCH (06:00)
[2017-03-23 06:51] VITALS: BP 130/82; PULSE 89; TEMP 36.9; O2SAT 94
[2017-03-23 06:54] LABS: BASO % 0.3 %; BASO ABS # 0.02 K/uL (0-0.2); COMPLETE YES; EOS % 3.8 %; HEMATOCRIT 40.6 % (37-47); IG% 0.2 %; LYMPH % 33.4 %; LYMPH ABS # 2.13 K/uL (1.2-3.4); MEAN CELL VOLUME 89.8 fL (80-100); MEAN CORPUSCULAR HEMOGLOBIN 29.6 pg (25-34); MEAN PLATELET VOLUME 9.7 fL (7.4-10.4); MONO % 9.6 %; NEUT % 52.7 %; PLATELET COUNT 206 K/uL (130-400); RED BLOOD COUNT 4.52 M/uL (4.2-5.4); WHITE BLOOD COUNT 6.37 K/uL (4.8-10.8)
[2017-03-23 07:22] LABS: PROTHROMBIN TIME (PATIENT) 57.5 SECONDS (9.0-12.0)
[2017-03-23 07:36] LABS: BUN/CREATININE RATIO 23.4 (10-20); CREATININE 0.92 mg/dl (0.60-1.20); POTASSIUM 4.2 mmol/L (3.5-5.1)
[2017-03-23 08:00] VITALS: O2SAT 95
[2017-03-23] MEDS: METOPROLOL TARTRATE 25 MG TAB PO SCH (09:20)
[2017-03-23] MEDS: RISPERIDONE 0.5 MG TAB PO SCH (09:21)
[2017-03-23] MEDS: ESCITALOPRAM OXALATE 10 MG TAB PO SCH (09:21)
[2017-03-23] MEDS: ACETAMINOPHEN 500 MG TAB PO SCH (09:21)
[2017-03-23] MEDS: SPIRONOLACTONE 25 MG TAB PO SCH (09:21)
[2017-03-23 11:17] VITALS: BP 146/91; PULSE 69; TEMP 36.8; O2SAT 96
[2017-03-23] MEDS ORDERED: LEVOFLOXACIN 500 MG TAB PO ONE (11:51)
[2017-03-23 12:00] VITALS: O2SAT 96
[2017-03-23] MEDS ORDERED: CMD3 PO (12:16)
[2017-03-23] MEDS ORDERED: TRAZ50TA35 PO (12:16)
[2017-03-23] MEDS ORDERED: DLCSR120 PO (12:16)
[2017-03-23] MEDS ORDERED: CEFD1CAP14 PO (12:16)
--- NOTE | 2017-03-23 12:26 | Discharge Instructions ---
Discharge Instructions Date of Service Mar 23, 2017. Admission Reason for Admission: Atrail Flutter With Rapid Ventricular Response Discharge Discharge Diagnosis / Problem: Atrial flutter with RVR Discharge Goals Goal(s): Improve disease control, Therapeutic intervention Activity Recommendations Activity Level: Assistance Required Therapies: Physical Therapy, Occupational Therapy . Additional Information Patient informed of condition: Yes Advance Directives: No DNR: Yes Level of Care: Skilled Communicable Disease: No Prognosis: Improving Oxygen at (LPM): N/A Lloyd Catheter: No Instructions / Follow-Up Instructions / Follow-Up This patient is an 87-year-old female with a history of Parkinson's disease, dementia, paroxysmal atrial flutter/fibrillation, depression, asthma, meningioma , history of DVT and PE, hypertension, and falls, who presents from [facility] with rapid HR and unresponsive episode. A. flutter w/ RVR, unresponsive episode- Unclear about why she was unresponsive- BP was reportedly normal at that time. QRS was wider but felt that P waves buried in QRS. On last admission, RN did report to me that when she sleeps, she sometimes appears to have brief periods of apnea. So perhaps her unresponsiveness was related to apnea-however, overnight oximetry test done here shows no evidence of sustained hypoxia, no sleep apnea. If BP normal, doubtful that her rapid aflutter caused her to become unresponsive. Was recently discharged 2 days prior to admission with rates controlled after adding on Diltiazem 120 XR and increasing metoprolol to 75 bid. Was given IV diltiazem 25mg x 1 and po diltiazem 30mg in ER. Rates now controlled consistently in the 60s-70s with changing Diltiazem XR to 120mg qhs ( rather than qAM) Trop neg x 2, ABG unremarkable, TSH WNL, Head CT- unremarkable for acute intracranial findings. She was given IV NS bolus x1 in ED as ED Physician performed bedside US which showed intravascular volume depletion. UA without signs of infection, had > 30 epis and trace blood, however pt had vague complaint of lower abd pain the day after admission. Now Urine culture with > 100k E. coli (no sensitivity back yet) and with altered MS, hard to say if UTI true or not. Will error on side of treating UTI INR SUPRAtherapeutic at 5.0 on day of discharge without any overt bleeding, Hgb remained the exact same as previously. - Discussed case with Cardiology, rates well controlled, no reason to keep her here longer--> dc to [place] today -suspect her dementia plays a role in her dehydration on admission, will continue Aldactone but consideration should be made to stop this in the future if she is not taking po fluids consistently - changed Diltiazem 120 mg from AM to be given in the PM -continue Metoprolol 75 mg BID - Continue Coumadin in future but hold again lukas for INR 5.0, no bleeding or need for Vit K today -Check PT/INR on 03/24/17 at [place] and restart coumadin when INR<3.0 -I discussed the case with Cardiology--> will be difficult to always rate control her but she is not a good candidate for BRANT and DCCV. Amiodarone might slow her down even more now and then might need PPM. When goes back to [facility], should be communicated that it's ok for her to have a HR in the 120s-130s as long as it isn't going on for days at a time and if maintaining normal BP. UTI-as above, UA may be contaminated sample but with altered MS and subjective suprapubic pain, will treat for UTI -gave Rocephin 1 gm IV x 1 on 03/23 -start Omnicef 300mg po bid x 6 more days starting 03/24--> d/w Pharmacist, risk of cross-reactive allergic reaction very low with Omnicef given PCN allergy and less likely to cause INR to go up than a FQ HTN- STABLE: Continue Metoprolol and Aldactone 25 mg QAM with caution on diuretic use as mentioned above Parkinson's disease w/ dementia, depression, h/o meningioma: Continue Risperdal 0.25 mg QAM/0.5 mg HS, Lexapro 10 mg daily, Trazodone 25 mg HS -supportive care 1:1 for safety provided here GI Prophylaxis: Zantac DVT Prophylaxis: Coumadin but on hold as above Code Status: LEVEL V, DNR Dispo: From [facility]- back to [place] today Discussed plan of care with Daughter Carito on phone today Current Hospital Diet Patient's current hospital diet: AHA Diet (Heart Healthy) Discharge Diet Recommended Diet: AHA Diet (Heart Healthy) Procedures Procedures Performed: Chest xray Head CT Pending Studies Studies pending at discharge: yes List of pending studies: Urine Culture final sensitivities Physician Orders On Transfer Special Precautions: Fall risk Dressing Changes: None IV Therapy: None Vital Signs: Daily Weigh: Routine Additional Orders: Check PT/INR and CBC on 03/24/17 POLST Discussion: with POLST completion (completed previously) Medical Emergencies . Who to Call and When: Medical Emergencies: If at any time you feel your situation is an emergency, please call 911 immediately. . Non-Emergent Contact Non-Emergency issues call your: Primary Care Provider . . "Provider Documentation" section prepared by Rosalva Harding. . Core Measure Problem Core Measures: None
[2017-03-23] MEDS ORDERED: CEFTRIAXONE SOD INJ 1 GM in DEXTROSE 5% ADD-VANTAGE 50ML 50 ML IV SCH (12:30)
--- NOTE | 2017-03-23 12:30 | Discharge Summary ---
Discharge Summary Date of Service Mar 23, 2017. Discharge Summary Admission Date: Mar 22, 2017 at 16:09 Discharge Date: Mar 23, 2017 Discharge Disposition: senior living facility Principal Diagnosis: Rapid atrial flutter Problems/Secondary Diagnoses: Parkinson's disease dementia paroxysmal atrial flutter/fibrillation depression asthma meningioma history of DVT and PE hypertension h/o falls Excessive anticoagulation UTI POA Immunizations: History of Pneumococcal: Yes Pneumococcal Date: Oct 28, 2011 Procedures: Head CT Chest xray Consultations: Cardiology Medication Reconciliation New Medications: Cefdinir (Omnicef) 300 Mg Cap 300 MG PO Q12H for 6 Days, #12 CAP FIRST DOSE TO BE GIVEN AM OF 03/24/17 Warfarin Sod (Coumadin) 3 Mg Tab 3 MG PO QPM for 30 Days HOLD UNTIL INR < 3.0, THEN RESTART AND ADJUST DOSE BASED ON INR Changed Medications: Diltiazem HCl (Diltiazem HCl ER) 120 Mg Caper 120 MG PO HS for 30 Days (Changed from: QAM) Trazodone Hcl (Trazodone) 50 Mg Tab 25 MG PO HS PRN for Anxiety/Agitation for 30 Days, TAB (Medication details modified) Continued Medications: Acetaminophen (Tylenol) 500 Mg Tab 500 MG PO TID Cholecalciferol (Vitamin D3) 2,000 Unit Cap 2000 UNITS PO DAILY, CAP Escitalopram (Lexapro) 10 Mg Tab 10 MG PO DAILY, TAB Gabapentin (Neurontin) 300 Mg Cap 300 MG PO Q8 Metoprolol Tartrate (Lopressor) (Lopressor) 50 Mg Tab 75 MG PO BID for 30 Days, #90 TAB Polyethylene Glycol 3350 (Bulk (Polyethylene Glycol 3350) 1 Pow Pow 17 GM PO QAM PRN for Constipation Ranitidine (Zantac) 150 Mg Tab 150 MG PO QPM, TAB Risperidone (Risperdal) 0.25 Mg Tab 0.25 MG PO QAM Risperidone (Risperdal) 0.5 Mg Tab 0.5 MG PO HS, TAB Spironolactone (Aldactone) 25 Mg Tab 25 MG PO QAM, 0 Refills Tramadol (Ultram) 50 Mg Tab 25 MG PO Q4H PRN for Pain, #10 TAB Discontinued Medications: Warfarin Sod (Coumadin) 5 Mg Tab 5 MG PO DAILY@16 for 30 Days, TAB Discharge Exam Doing very well, rates well controlled, no abd pain, no complaints but ROS limited due to severe dementia Physical Exam Tele review with Aflutter rates 60s-70s General Appearance: no apparent distress Eyes: normal inspection, sclerae normal ENT: hearing grossly normal Neck: trachea midline Respiratory/Chest: lungs clear, normal breath sounds, no respiratory distress, no accessory muscle use Cardiovascular: + irregularly irregular (with normal rate, no mgr) Abdomen: normal bowel sounds, non tender, soft Extremities: non-tender, normal inspection, no pedal edema Neurologic/Psychiatric: alert, + disoriented Skin: normal color, warm/dry, no rash Review of Systems: Constitutional: No fever Eyes: No problem reported ENT: No problem reported Respiratory: No shortness of breath Cardiovascular: No chest pain Abdomen: No pain Musculoskeletal: No problem reported Genitourinary - Female: No problem reported Neurologic: + memory loss Psychiatric: No problem reported Endocrine: No problem reported Hematologic / Lymphatic: No problem reported Integumentary: No problem reported Hospital Course This patient is an 87-year-old female with a history of Parkinson's disease, dementia, paroxysmal atrial flutter/fibrillation, depression, asthma, meningioma , history of DVT and PE, hypertension, and falls, who presents from [facility] with rapid HR and unresponsive episode. A. flutter w/ RVR, unresponsive episode- Unclear about why she was unresponsive- BP was reportedly normal at that time. QRS was wider but felt that P waves buried in QRS. On last admission, RN did report to me that when she sleeps, she sometimes appears to have brief periods of apnea. So perhaps her unresponsiveness was related to apnea-however, overnight oximetry test done here shows no evidence of sustained hypoxia, no sleep apnea. If BP normal, doubtful that her rapid aflutter caused her to become unresponsive. Was recently discharged 2 days prior to admission with rates controlled after adding on Diltiazem 120 XR and increasing metoprolol to 75 bid. Was given IV diltiazem 25mg x 1 and po diltiazem 30mg in ER. Rates now controlled consistently in the 60s-70s with changing Diltiazem XR to 120mg qhs ( rather than qAM) Trop neg x 2, ABG unremarkable, TSH WNL, Head CT- unremarkable for acute intracranial findings. She was given IV NS bolus x1 in ED as ED Physician performed bedside US which showed intravascular volume depletion. UA without signs of infection, had > 30 epis and trace blood, however pt had vague complaint of lower abd pain the day after admission. Now Urine culture with > 100k E. coli (no sensitivity back yet) and with altered MS, hard to say if UTI true or not. Will error on side of treating UTI INR SUPRAtherapeutic at 5.0 on day of discharge without any overt bleeding, Hgb remained the exact same as previously. - Discussed case with Cardiology, rates well controlled, no reason to keep her here longer--> dc to [place] today -suspect her dementia plays a role in her dehydration on admission, will continue Aldactone but consideration should be made to stop this in the future if she is not taking po fluids consistently - changed Diltiazem 120 mg from AM to be given in the PM -continue Metoprolol 75 mg BID - Continue Coumadin in future but hold again lukas for INR 5.0, no bleeding or need for Vit K today -Check PT/INR on 03/24/17 at [place] and restart coumadin when INR<3.0 -I discussed the case with Cardiology--> will be difficult to always rate control her but she is not a good candidate for BRANT and DCCV. Amiodarone might slow her down even more now and then might need PPM. [facility] should be communicated that it's ok for her to have a HR in the 120s-130s as long as it isn't going on for days at a time and if maintaining normal BP. UTI-as above, UA may be contaminated sample but with altered MS and subjective suprapubic pain, will treat for UTI -gave Rocephin 1 gm IV x 1 on 03/23 -start Omnicef 300mg po bid x 6 more days starting 03/24--> d/w Pharmacist, risk of cross-reactive allergic reaction very low with Omnicef given PCN allergy and less likely to cause INR to go up than a FQ HTN- STABLE: Continue Metoprolol and Aldactone 25 mg QAM with caution on diuretic use as mentioned above Parkinson's disease w/ dementia, depression, h/o meningioma: Continue Risperdal 0.25 mg QAM/0.5 mg HS, Lexapro 10 mg daily, Trazodone 25 mg HS -supportive care 1:1 for safety provided here GI Prophylaxis: Zantac DVT Prophylaxis: Coumadin but on hold as above Code Status: LEVEL V, DNR Dispo: From [facility]- back to [place] today Discussed plan of care with Daughter Carito on phone today Total Time Spent: Greater than 30 minutes This includes examination of the patient, discharge planning, medication reconciliation, and communication with other providers. Discharge Instructions Please refer to the electronic Patient Visit Report (Discharge Instructions) for additional information. Follow-Up PCP in 1-2 days Additional Copies To Christian Linder M.D.
[2017-03-23] MEDS: TRAMADOL HCL 50 MG TAB PO PRN (12:50)
[2017-03-23 13:24] VITALS: BP 146/91; PULSE 69; TEMP 36.8; O2SAT 96
--- NOTE | 2017-03-23 14:48 | CARDIOLOGY CONSULTATION ---
DATE OF CONSULTATION: 03/23/2017 TIME: 12:45 p.m. CONSULTING PHYSICIAN: Dr. Harding. REASON FOR CONSULTATION: Atrial flutter with rapid ventricular response. PRIOR ATHLETIC FIELD CUSTODIAN: Dr. Jose Alfredo Alexander. HISTORY OF PRESENT ILLNESS: Ms. Bernard is a pleasant 87-year-old female with a history significant for Parkinson's, dementia, atrial flutter, reported paroxysmal atrial fibrillation, asthma, prior DVT/PE and hypertension. History is obtained from the patient's son, Ed; Dr. Harding; nursing staff as well as hospital records as the patient herself is demented and a very poor historian. When asking symptoms, she states that she has a headache, and she points to her maxillary areas. When asked about shortness of breath, she states that she is short of breath but then she also stated that she has no children. She apparently has been agitated at times, but currently is calm. According to available records and Dr. Harding, she was sent to the Emergency Department from her nursing facility when she was found unresponsive. The blood pressure was reportedly "normal" but she had atrial flutter with rapid ventricular response with heart rates reported in the 140s. She was just hospitalized earlier this past week with atrial flutter and was reasonably well rate controlled with diltiazem and metoprolol. Since she has been admitted here, her heart rate has been reasonably well rate controlled. She did have brief episodes of heart rates in the lower 100s, but otherwise her heart rates have been noted to be as low as the 40s at times but mostly in the 60s-70s. REVIEW OF SYSTEMS: As above and review of systems otherwise is unobtainable due to patient's mental status. PAST MEDICAL HISTORY: Reported as: 1. Atrial flutter. 2. Paroxysmal atrial fibrillation. 3. Parkinson disease. 4. Dementia. 5. Depression. 6. Asthma 7. Meningioma. 8. DVT/PE history. 9. Hypertension. 10. Status post appendectomy. 11. Status post hemicolectomy. 12. Status post tonsillectomy. 13. Status post total bilateral knee replacement. CURRENT INPATIENT MEDICATIONS: Include ceftriaxone 1 g IV daily, diltiazem 120 mg p.o. q.p.m., metoprolol tartrate 75 mg p.o. b.i.d., gabapentin 300 mg p.o. q. 8 hours, ranitidine 150 mg p.o. q.p.m., Risperdal 0.25 mg p.o. q.a.m. and 0.5 mg p.o. at bedtime, spironolactone 25 mg p.o. q.a.m., trazodone 25 mg at bedtime. LISTED ALLERGIES: PENICILLIN, SERTRALINE, SULFA DRUGS, ALBUMIN. SOCIAL HISTORY: Obtained from the chart due to patient's mental status. She apparently has never smoked. She is a . [facility]. Her next of kin listed is a daughter named Carito and also a son named Wagner. She is currently alone with a one-on-one in her hospital room. FAMILY HISTORY: Reported as heart disease and dementia. PHYSICAL EXAMINATION: VITAL SIGNS: Temperature 36.8 degrees, heart rate 69 beats per minute, respiration rate 18, blood pressure 146/91 mmHg, but mostly normotensive. Oxygen saturation 96% on room air. GENERAL: In no acute distress. She is alert but confused. She knows her name, but is not otherwise oriented to place, year and also responded that she did not have any children. HEENT: Anicteric sclerae. NECK: No appreciable JVD. No bruits. Normal carotid upstrokes bilaterally. CARDIAC EXAMINATION: PMI was nonpalpable. There was no ventricular heave. Regular, normal S1, S2. No audible murmurs, rubs or gallops. LUNGS: Decreased breath sounds throughout and poor inspiratory effort, but otherwise clear. ABDOMEN: Soft, nontender, nondistended, normoactive bowel sounds, no bruits noted. EXTREMITIES: No cyanosis or edema. No palpable cords. 2+ radial pulses bilaterally. 2+ dorsalis pedis pulses bilaterally. PSYCHIATRIC: Affect appears appropriate. LABORATORY DATA: White blood cell count 6.37, hemoglobin 13.4, platelets 206. Sodium 141, potassium 4.2, BUN 22, creatinine 0.92. Magnesium 2. INR is 5, urine culture positive for E. coli. Head CT from 03/21/2017 reported as chronic and age-related change. No acute process. Chest x-ray from 03/21/2017 reported as no active disease by radiology. Chest x-ray image also personally reviewed. No obvious infiltrate. Most recent echocardiogram 03/18/2017 reported as normal LV systolic function with moderate LVH. Mild RV dilation with mild RV systolic dysfunction. Moderate biatrial dilation. Mild AI. Mild to moderate PI. Moderate MR and moderate TR. ECG 03/21/2017 personally reviewed. Atrial flutter at 144 BPM. Repeat ECG 03/23/2017, atrial flutter at 68 beats per minute with variable AV block. Telemetry: Telemetry is personally reviewed. Heart rate has been reasonably controlled throughout this hospitalization. ASSESSMENT AND PLAN: 1. Atrial flutter: She has persistent atrial flutter at this point. Treatment strategies would include rate control, cardioversion, antiarrhythmic therapy, ablation. Given her current mental status with advanced dementia and agitation at times, would recommend conservative measures if they adequately control her rate. Her heart rate is adequately controlled on current regimen. The diltiazem was changed to q.p.m. to provide more coverage in the morning per primary service. For cardioversion, would recommend transesophageal echo first and at this point with her agitation and dementia, this does not appear to be in her best interest. These options were discussed with her son Ed who is listed as the person to notify of medical issues in the chart. He is in agreement that more aggressive measures should be avoided at this time if possible. We discussed the fact that she may become more tachycardic intermittently, given her atrial flutter and this would not be unexpected. If she is asymptomatic from rapid ventricular response with a perfusing blood pressure, and the episodes do not last several hours in duration or several days in duration, would continue current regimen. Short episodes of asymptomatic tachycardia are not likely to cause a decreased quality of life or overall increased morbidity/mortality if she is asymptomatic with a perfusing blood pressure. She is on anticoagulation for stroke risk reduction, which has been addressed by primary service. Would hold Coumadin, given the fact that she is supratherapeutic currently. 2. Unresponsiveness: If her blood pressure was normal with a heart rate of 140 while in atrial flutter, the atrial flutter is not likely the cause of her unresponsiveness. Further workup as per primary service. Could also be related to other medications that she takes that can cause drowsiness. 3. Bradycardia: She does have intermittent bradycardia with atrial flutter; however, not significant enough to warrant pacemaker placement. With more aggressive rate controlling medications or medication such as amiodarone may precipitate worsening bradycardia which once again may lead to pacemaker placement. She is asymptomatic and does not appear to have any issues with her atrial flutter at this point and therefore would not change current rate controlling strategy. 4. Disposition: No further adjustment to her atrial flutter medications is recommended at this time. Her son Ed was contacted via telephone and we discussed plan of care and he was satisfied with current treatment plan. It was once again explained to him that she may have episodes of tachycardia but as long as they are not prolonged, would continue current treatment strategy and hopefully avoid more aggressive measures. He prefers conservative strategy if possible. If conservative strategy fails, we could then choose to become more aggressive in the future. Plan of care discussed with Dr. Harding. Thank you for allowing me to participate in the care of Ms. Bernard.
[2017-03-24] MEDS ORDERED: LEVOFLOXACIN 500 MG TAB PO SCH (11:00)
== END 2017-03-23 13:47 | DRG 309 ==
LOC: EDBD 11:53 → C.EDB 11:54 → C.2T 14:34 → ENRESERV 15:03 → OBSVTOIN 03-22 16:09
PROVIDERS: ADMIT Internal Medicine; ATTEND Family Medicine
DX: I48.92 Unspecified atrial flutter (principal); N39.0 Urinary tract infection, site not specified; R00.0 Tachycardia, unspecified; E86.0 Dehydration; R40.2412 Glasgow coma scale score 13-15, at arrival to emergency department; I10 Essential (primary) hypertension; G20 Parkinson's disease; F02.80 Dementia in other diseases classified elsewhere, unspecified severity, without behavioral disturbance, psychotic disturbance, mood disturbance, and anxiety; F32.9 Major depressive disorder, single episode, unspecified; I48.0 Paroxysmal atrial fibrillation; R79.1 Abnormal coagulation profile; Z66 Do not resuscitate; E66.9 Obesity, unspecified; Z68.29 Body mass index [BMI] 29.0-29.9, adult; Z91.81 History of falling; Z86.69 Personal history of other diseases of the nervous system and sense organs; Z86.711 Personal history of pulmonary embolism; Z86.718 Personal history of other venous thrombosis and embolism; Z79.01 Long term (current) use of anticoagulants; Z79.1 Long term (current) use of non-steroidal anti-inflammatories (NSAID); Z79.899 Other long term (current) drug therapy; Z88.0 Allergy status to penicillin; Z88.2 Allergy status to sulfonamides; Z88.8 Allergy status to other drugs, medicaments and biological substances; Z81.8 Family history of other mental and behavioral disorders; Z82.49 Family history of ischemic heart disease and other diseases of the circulatory system

== ENCOUNTER → 2017-03-21 | Outpatient (CLI) | payer OTHER ==
[~2017-03-21] MED LIST changes: +CEFD1CAP14 PO; +CMD3 PO; +CMD5 PO; +DLCSR120 PO; +METO50TA16 PO; -PANT40TA PO; -POTA10CA28 PO; +RISP0.5T10 PO; +TRAM-10 PO; +ZNTT/150 PO; -[UNRECOGNIZED DRUG - OTHER] TOP
[2017-03-21 10:11] LABS: INR 1.7 (0.9-1.1); PROTHROMBIN TIME (PATIENT) 18.3 SECONDS (9.0-12.0)
== END ==
LOC: C.LABFOXAN 09:26
PROVIDERS: ATTEND Internal Medicine
DX: I48.91 Unspecified atrial fibrillation (principal)

== ENCOUNTER → 2017-04-16 | Outpatient (CLI) | payer OTHER ==
[~2017-04-16] MED LIST changes: +CMD3 PO; -CMD5 PO
[2017-04-16 11:34] LABS: PROTHROMBIN TIME (PATIENT) 98.8 SECONDS (9.0-12.0)
[2017-04-16 11:35] LABS: INR > 8.0 (0.9-1.1)
== END | disposition home or self-care (01) ==
LOC: C.LABFOXAN 09:24 → EDSTATUS 04-22 11:53
PROVIDERS: ATTEND Nurse Practitioner Family
DX: I48.91 Unspecified atrial fibrillation (principal)

== ENCOUNTER → 2017-04-17 | Outpatient (CLI) | payer OTHER ==
[2017-04-17 09:02] LABS: HEMATOCRIT 35.1 % (37-47); MEAN CELL VOLUME 92.9 fL (80-100); MEAN CORPUSCULAR HEMOGLOBIN 28.8 pg (25-34); MEAN CORPUSCULAR HGB CONC 31.1 g/dl (32-36); MEAN PLATELET VOLUME 9.8 fL (7.4-10.4); PLATELET COUNT 290 K/uL (130-400); RED BLOOD COUNT 3.78 M/uL (4.2-5.4); WHITE BLOOD COUNT 8.36 K/uL (4.8-10.8)
[2017-04-17 09:13] LABS: INR 2.7 (0.9-1.1)
[2017-04-17 09:35] LABS: BLOOD UREA NITROGEN 28 mg/dl (7-18); BUN/CREATININE RATIO 27.7 (10-20); CALCIUM 8.6 mg/dl (8.5-10.1); CARBON DIOXIDE 24 mmol/L (21-32); CHLORIDE 110 mmol/L (98-107); GLUCOSE 91 mg/dl (70-99); POTASSIUM 4.3 mmol/L (3.5-5.1); SODIUM 142 mmol/L (136-145)
== END | disposition home or self-care (01) ==
LOC: C.LABFOXAN 08:23 → EDSTATUS 04-22 11:57
PROVIDERS: ATTEND Internal Medicine Hospice and Palliative Medicine
DX: I48.92 Unspecified atrial flutter (principal)

== ENCOUNTER → 2017-04-21 | Outpatient (CLI) | payer OTHER ==
[2017-04-21 10:00] LABS: INR 1.9 (0.9-1.1); PROTHROMBIN TIME (PATIENT) 20.5 SECONDS (9.0-12.0)
== END ==
LOC: C.LABFOXAN 08:43 → EDSTATUS 04-22 11:54
PROVIDERS: ATTEND Internal Medicine
DX: I48.92 Unspecified atrial flutter (principal)

== ENCOUNTER → 2017-04-24 | Outpatient (CLI) | payer OTHER ==
[2017-04-24 08:53] LABS: HEMATOCRIT 39.1 % (37-47); MEAN CELL VOLUME 92.7 fL (80-100); MEAN CORPUSCULAR HEMOGLOBIN 28.4 pg (25-34); MEAN CORPUSCULAR HGB CONC 30.7 g/dl (32-36); PLATELET COUNT 318 K/uL (130-400); RED BLOOD COUNT 4.22 M/uL (4.2-5.4); WHITE BLOOD COUNT 11.59 K/uL (4.8-10.8)
[2017-04-24 09:04] LABS: INR 2.9 (0.9-1.1)
== END | disposition home or self-care (01) ==
LOC: C.LABFOXAN 08:19
PROVIDERS: ATTEND Internal Medicine
DX: I48.92 Unspecified atrial flutter (principal)

== ENCOUNTER → 2017-04-28 | Outpatient (CLI) | payer OTHER ==
[2017-04-28 12:54] LABS: BLOOD UREA NITROGEN 23 mg/dl (7-18); BUN/CREATININE RATIO 22.7 (10-20); CARBON DIOXIDE 24 mmol/L (21-32); CHLORIDE 111 mmol/L (98-107); GLUCOSE 82 mg/dl (70-99); POTASSIUM 4.2 mmol/L (3.5-5.1); SODIUM 143 mmol/L (136-145)
== END | disposition home or self-care (01) ==
LOC: C.LABFOXAN 12:51
PROVIDERS: ATTEND Internal Medicine
DX: Z79.899 Other long term (current) drug therapy (principal)

== ENCOUNTER → 2017-05-08 | Outpatient (CLI) | payer OTHER ==
[2017-05-08 09:04] LABS: PROTHROMBIN TIME (PATIENT) 45.5 SECONDS (9.0-12.0)
== END | disposition home or self-care (01) ==
LOC: C.LABFOXAN 08:35
PROVIDERS: ATTEND Internal Medicine
DX: I48.91 Unspecified atrial fibrillation (principal)

== ENCOUNTER → 2017-05-15 | Outpatient (CLI) | payer OTHER ==
[2017-05-15 09:59] LABS: PROTHROMBIN TIME (PATIENT) > 100.0 SECONDS (9.0-12.0)
[2017-05-15 11:25] LABS: INR > 8.0 (0.9-1.1)
== END | disposition home or self-care (01) ==
LOC: C.LABFOXAN 08:41
PROVIDERS: ATTEND Internal Medicine
DX: I48.91 Unspecified atrial fibrillation (principal)

== ENCOUNTER → 2017-05-19 | Outpatient (CLI) | payer OTHER ==
[2017-05-19 08:24] LABS: INR 1.1 (0.9-1.1); PROTHROMBIN TIME (PATIENT) 11.4 SECONDS (9.0-12.0)
== END ==
LOC: C.LABFOXAN 07:46
PROVIDERS: ATTEND Nurse Practitioner Family
DX: I48.91 Unspecified atrial fibrillation (principal)

== ENCOUNTER → 2017-05-26 | Outpatient (CLI) | payer OTHER ==
[~2017-05-26] MED LIST changes: +GABA-1218 PO; -GABA300C19 PO
[2017-05-26 08:14] LABS: INR 1.4 (0.9-1.1); PROTHROMBIN TIME (PATIENT) 15.4 SECONDS (9.0-12.0)
== END | disposition home or self-care (01) ==
LOC: C.LABFOXAN 07:54
PROVIDERS: ATTEND Internal Medicine
DX: I48.91 Unspecified atrial fibrillation (principal)

== ENCOUNTER → 2017-08-20 | Outpatient (CLI) | payer OTHER ==
[2017-08-20 11:45] LABS: HEMATOCRIT 39.1 % (37-47); HEMOGLOBIN 12.9 g/dL (12.0-16.0)
== END | disposition home or self-care (01) ==
LOC: C.LABFOXAN 11:33
PROVIDERS: ATTEND Internal Medicine Hospice and Palliative Medicine
DX: Z51.81 Encounter for therapeutic drug level monitoring (principal); Z79.01 Long term (current) use of anticoagulants

== ENCOUNTER → 2017-08-22 | Outpatient (CLI) | payer OTHER ==
[2017-08-22 08:51] LABS: BASO % 0.3 %; BASO ABS # 0.02 K/uL (0-0.2); EOS % 2.4 %; EOS ABS # 0.16 K/uL (0-0.5); HEMATOCRIT 41.3 % (37-47); HEMOGLOBIN 13.5 g/dL (12.0-16.0); IG# 0.03 K/uL (0.00-0.02); MEAN CELL VOLUME 93.4 fL (80-100); MEAN CORPUSCULAR HEMOGLOBIN 30.5 pg (25-34); MEAN CORPUSCULAR HGB CONC 32.7 g/dl (32-36); MEAN PLATELET VOLUME 10.5 fL (7.4-10.4); MONO % 11.4 %; MONO ABS # 0.76 K/uL (0.11-0.59); NEUT % 46.4 %; NEUT ABS # 3.09 K/uL (1.4-6.5); PLATELET COUNT 177 K/uL (130-400); RED CELL DISTRIBUTION WIDTH SD 47.7 fL (36.4-46.3); WHITE BLOOD COUNT 6.66 K/uL (4.8-10.8)
[2017-08-22 08:59] LABS: ALBUMIN 3.1 gm/dl (3.4-5.0); ALT/SGPT 22 U/L (12-78); BLOOD UREA NITROGEN 24 mg/dl (7-18); CARBON DIOXIDE 24 mmol/L (21-32); CREATININE 0.96 mg/dl (0.60-1.20); GLUCOSE 97 mg/dl (70-99); LIPASE 113 U/L (73-393); POTASSIUM 4.2 mmol/L (3.5-5.1); SODIUM 142 mmol/L (136-145)
[2017-08-22 09:02] LABS: ALKALINE PHOSPHATASE 83 U/L (45-117); AST/SGOT 16 U/L (15-37); TOTAL PROTEIN 6.1 gm/dl (6.4-8.2)
== END | disposition home or self-care (01) ==
LOC: C.LABFOXAN 08:15
PROVIDERS: ATTEND Internal Medicine
DX: R10.9 Unspecified abdominal pain (principal)

== ENCOUNTER → 2017-08-28 | Outpatient (CLI) | payer OTHER ==
[2017-08-28 08:26] LABS: BLOOD UREA NITROGEN 26 mg/dl (7-18); CALCIUM 9.2 mg/dl (8.5-10.1); CARBON DIOXIDE 25 mmol/L (21-32); CREATININE 1.09 mg/dl (0.60-1.20); GLUCOSE 94 mg/dl (70-99); POTASSIUM 4.2 mmol/L (3.5-5.1); SODIUM 141 mmol/L (136-145)
== END | disposition home or self-care (01) ==
LOC: C.LABFOXAN 07:58
PROVIDERS: ATTEND Internal Medicine Hospice and Palliative Medicine
DX: I48.91 Unspecified atrial fibrillation (principal); N18.9 Chronic kidney disease, unspecified

== ENCOUNTER → 2017-09-06 | Outpatient (CLI) | payer OTHER ==
[2017-09-06 09:54] LABS: INFLUENZA B ANTIGEN Neg for Influ B (NEG)
--- NOTE | 2017-09-11 10:30 | CODING QUERY NO DIAGNOSIS ---
: 1932 Valid Physician Order Needed A valid physician order must be submitted in order to properly bill for the service(s) provided, including date of service(s), valid diagnosis, and physician signature. If these tests are done on a recurring basis the original physician order must be submitted in order to code and bill for the service(s) provided. Please fax us the original, signed physician order so that we may expedite billing to [phone] DOS 09/06/2017 * Influenza Swab Thank you Nadja Hanley [facility] Information Management
== END | disposition home or self-care (01) ==
LOC: C.LABFOXAN 12:39
PROVIDERS: ATTEND Nurse Practitioner Family
DX: R50.9 Fever, unspecified (principal); R05 Cough